=== PATIENT | female | born 1980 | race Caucasian/White ===

== ENCOUNTER 2017-03-11 15:27 | Inpatient (IN) ==
[2017-03-11] MEDS ORDERED: Vancomycin 1,500 MG in D5% in Water 250 ML IVPB ONE ×2 (16:25→16:31)
[2017-03-11 16:48] LABS: Basophils % 0.3 %; Eosinophils # 0.3 K/mcL (0.0-0.6); Eosinophils % 2.2 %; Hematocrit 35.8 % (35.3-44.9); Hemoglobin 11.9 g/dL (11.5-15.4); Immature Granulocytes % 0.3 % (0-4); Lymphocytes # 2.8 K/mcL (0.6-4.6); Lymphocytes % 23.6 %; Mean Corpuscular HGB Conc 33.2 g/dL (31.6-35.5); Mean Corpuscular Hemoglobin 28.3 pg (28.0-33.3); Mean Corpuscular Volume 85.2 fL (83.0-100.0); Mean Platelet Volume 10.8 fL (9.4-12.4); Monocytes # 0.8 K/mcL (0.0-1.3); Monocytes % 6.3 %; Neutrophils # 8.1 K/mcL (1.6-8.9); Platelet Count 311 K/mcL (140-400); Segmented Neutrophils % 67.3 %
--- NOTE | 2017-03-11 16:53 | Emergency Department Note ---
Disposition Clinical Impression: Cellulitis Qualifiers: Site of cellulitis: extremity Site of cellulitis of extremity: lower extremity Laterality: right Qualified Code(s): L03.115 - Cellulitis of right lower limb Disposition: Admitted As Inpatient Condition: Good Time of Disposition: 17:41 General Adult HPI - General Chief complaint: ED Skin/Abscess/Foreign Body Stated complaint: right leg wound check Time Seen by Provider: 03/11/17 15:46 Source: patient Limitations: no limitations Nursing Notes Reviewed: Yes Vital Signs Reviewed: Yes - History of Present Illness HPI Narrative: The patient is a 37 year-old female with no significant past medical history who presents with worsening cellulitis of the right leg. She states that this occurred 4-5 days ago while at work and was seen here in the ED yesterday and was prescribed antibiotics. She states that since yesterday, she continues to have chills and subjective fevers and admits to taking two antibiotics so far. She states that the redness has continue to spread outside of the mcgrath drawn on her leg yesterday and she is now having constant throbbing pain that starts in her right midcalf and radiating to the back of her right thigh that started last night. She states that bending her knee makes the pain worse and laying it straight and still makes the pain better. She also admits one new lesion that appeared on her knee and one on her RLQ of her abdomen. She denies any chest pain, SOB, difficulty breathing, abdominal pain, blood in her stool, blood in her urine, numbness and tingling, new weaknesses, or any focal neurological deficits. Pain Scale: 10 - Related Data Home Medications Medication Instructions Recorded Confirmed Naproxen Sodium [All Day Pain 220 mg PO Q12H PRN 03/11/17 03/11/17 Relief] Previous Rx's Medication Instructions Recorded Cephalexin [Keflex] 500 mg PO QID #40 capsule 03/10/17 HYDROcodone/Acet 5/325 mg [[place] 1 tab PO Q6H PRN #10 tab 03/10/17 5-325 mg] Sulfamethoxazole/Trimeth DS 1 each PO BID #20 tablet 03/10/17 [Bactrim DS] Allergies Allergy/AdvReac Type Severity Reaction Status Date / Time No Known Allergies Allergy Verified 03/11/17 15:45 Review of Systems: Constitutional: Admits subjective fever. Admits chills Vision: No blurred vision ENT: No rhinorrhea Respiratory: No cough Allergic: No allergies : No blood in urine GI: No blood in stool Hematologic: No bruising Dermatologic: No skin rash Musculoskeletal: Admits throbbing pain that starts behind her right midcalf and radiates up to behind her right thigh. Denies any numbness or tingling or weakness. Neuro: No numbness of the extremities All systems ED: reviewed and negative except as stated. Review of Systems: As Per HPI Past Medical History - Past Medical History Medical history: Reports: no medical history Psychiatric history: Reports: no psych history - Social History Smoking Status: Never smoker Smokeless Tobacco Status: No Alcohol use: Reports: none Drug use: Reports: none Physical Exam CONSTITUTIONAL: Alert and oriented X3, well-nourished, well appearing, in no apparent distress HEAD: Normocephalic; atraumatic. EYES: PERRL, no scleral icterus. NOSE: The nose is normal in appearance without rhinorrhea RESP: Normal chest excursion with respiration; breath sounds clear and equal bilaterally; no wheezes, rhonchi, or rales CARD: Regular rhythm, without murmurs, rub or gallop ABD: two vesicular lesion present on RLQ with no drainage. Non-distended; non- tender, soft,without rigidity, rebound or guarding SKIN: Normal for age and race; warm and dry; no apparent lesions EXTREMITIES: Several of erythematous vesicular lesions present behind the right knee and right calf. Erythema pass outside the mcgrath drawn. Right leg tender to palpation from thigh to midcalf. No crepitus noted. No drainage from the lesions. Pulses are 2 plus and equal times 4 extremities, no peripheral edema NEUROLOGICAL: Sensory and motor functions are intact. Strength is 5/5 for flexion and extension in all 4 extremities. - General Limitations: no limitations General appearance: alert, in no apparent distress Course Vital Signs Temperature 98.3 F 03/11/17 15:41 Pulse Rate 94 03/11/17 15:41 Respiratory Rate 18 03/11/17 15:41 Blood Pressure 134/90 03/11/17 15:41 O2 Sat by Pulse Oximetry 98 03/11/17 15:41 Temperature 98.2 F 03/11/17 18:28 Pulse Rate 79 03/11/17 18:28 Respiratory Rate 16 03/11/17 18:28 Blood Pressure 148/93 03/11/17 18:28 O2 Sat by Pulse Oximetry 100 03/11/17 18:28 Oxygen Delivery Oxygen Delivery Room Air Medical Decision Making - MDM Narrative Medical decision making narrative: Vitals are normal. Patient is afebrile and is not in any acute distress. Physical exam showed vesicular lesions behind the right knee and midcalf with no purulent discharge at this time. Appears erythematous outside of the mcgrath drawn. Will obtain labs and admit patient for IV antibiotics and observation for worsening of cellulitis. 174- Alf[facility] accepted the patient. Patient agrees to be admitted. - Lab Data Result diagrams: 03/11/17 16:37 03/11/17 16:37 Lab Results 03/11/17 03/11/17 Range/Units 16:37 16:37 WBC 12.0 H (4.3-11.1) K/mcL RBC 4.20 (3.82-4.97) M/mcL Hgb 11.9 (11.5-15.4) g/dL Hct 35.8 (35.3-44.9) % MCV 85.2 (83.0-100.0) fL MCH 28.3 (28.0-33.3) pg MCHC 33.2 (31.6-35.5) g/dL RDW 13.0 (11.5-14.5) % Plt Count 311 (140-400) K/mcL MPV 10.8 (9.4-12.4) fL Immature Gran % 0.3 (0-4) % Seg Neutrophils % 67.3 % Lymphocytes % 23.6 % Monocytes % 6.3 % Eosinophils % 2.2 % Basophils % 0.3 % Neutrophils # 8.1 (1.6-8.9) K/mcL Lymphocytes # 2.8 (0.6-4.6) K/mcL Monocytes # 0.8 (0.0-1.3) K/mcL Eosinophils # 0.3 (0.0-0.6) K/mcL Basophils # 0.0 (0.0-0.2) K/mcL Sodium 140 (136-145) mEq/L Potassium 3.9 (3.5-4.5) mEq/L Chloride 107 (98-109) mEq/L Carbon Dioxide 25 (19-29) mEq/L BUN 7 (7-20) mg/dL Creatinine 0.77 (0.57-1.11) mg/dL Est GFR ( Amer) > 60 (> 60) Est GFR (Non-Af Amer) > 60 (> 60) BUN/Creatinine Ratio 9 (6-26) Glucose 86 (70-99) mg/dL Calculated Osmolality 287 (280-300) Calcium 9.1 (8.6-10.8) mg/dL Attestation Statement - Attestation Attestation: I examined this patient and my medical decision-making was reviewed with the Resident Physician. I agree with the documented findings, disposition and treatment plan as described except to the extent set forth below. Right leg cellulitis and folliculitis. We will start therapy with vancomycin. Will admit for further evaluation of cellulitis in the setting of failed outpatient antibiotics.
[2017-03-11] MEDS ORDERED: *HR* OxyCODONE/APAP 5/325 TABLET PO ONE (16:54)
[2017-03-11 16:56] LABS: BUN/Creatinine Ratio 9 (6-26); Blood Urea Nitrogen 7 mg/dL (7-20); Calcium 9.1 mg/dL (8.6-10.8); Carbon Dioxide 25 mEq/L (19-29); Chloride 107 mEq/L (98-109); Glucose 86 mg/dL (70-99); Osmolality,Calculated 287 (280-300); Potassium 3.9 mEq/L (3.5-4.5); Sodium 140 mEq/L (136-145); eGFR For African Americans > 60 (> 60); eGFR For Non-African Americans > 60 (> 60)
[2017-03-11] MEDS: 0.9 % Sodium Chloride 1,000 ML IVC SCH ×2 (16:57→22:22)
[2017-03-11] MEDS ORDERED: Acetaminophen 325 MG TABLET PO PRN (22:41)
[2017-03-11] MEDS ORDERED: Naloxone 0.4 MG/ML INJ IVP PRN (22:41)
[2017-03-11] MEDS ORDERED: Ondansetron 4 MG/2 ML VIAL IVP PRN (22:41)
[2017-03-11] MEDS ORDERED: Vancomycin 1,500 MG in D5% in Water 250 ML IVPB SCH (23:00)
--- NOTE | 2017-03-11 23:08 | Internal Med History&Physical ---
Date of Encounter: 03/12/17 Time of Encounter: 22:00 Assessment and Plan (1) DVT prophylaxis Current visit: Yes Status: Acute Lovenox sc (2) Cellulitis Current visit: Yes Status: Acute Patient has a mild elevation of WBC. Physical exam shows cellulitis. - We will place patient on vancomycin and Rocephin iv. - Pain management. - Ultrasound right leg to rule out DVT Qualifiers: Site of cellulitis: extremity Site of cellulitis of extremity: lower extremity Laterality: right Qualified Code(s): L03.115 - Cellulitis of right lower limb Internal Medicine - H&P: HPI Chief complaint: Right leg pain and swelling Admitted From: Home Plans for Post Hospital Care: Home History of present illness: Ms. [place] is a 37 year old female with no significant medical history presented to ER for right leg swelling, redness, and pain. Patient said she had right leg redness and pain since 5 days ago. Treated as cellulitis as outpatient with Keflex and Bactrim. However, the symptoms not improved and even getting worse. Patient has chills, nausea, and vomited once today. The vomiting is stomach content, no blood. Patient said the swelling and pain makes her difficult pain to bent the knee. She was admitted for cellulitis with failed outpatient treatment. Past Med Surg Social Fam HX - Past Medical History Medical history: no medical history Psychiatric history: no psych history - Past Surgical History Surgical History: appendectomy, cholecystectomy - Social History Smoking Status: Never smoker Smokeless Tobacco Status: No Alcohol use: none Drug use: none - Family History Father Living Status: Still Living Hx Family Cardiac Disorders: Yes (hypertension) Hx Family Endocrine Disorder: Yes (diabetes) Internal Medicine - H&P: Meds Cephalexin [Keflex] 500 mg PO QID #40 capsule 03/10/17 [Rx] HYDROcodone/Acet 5/325 mg [[place] 5-325 mg] 1 tab PO Q6H PRN #10 tab 03/10/17 [Rx ] Sulfamethoxazole/Trimeth DS [Bactrim DS] 1 each PO BID #20 tablet 03/10/17 [Rx] Naproxen Sodium [All Day Pain Relief] 220 mg PO Q12H PRN 03/11/17 [History] 3 Allergy/AdvReac Type Severity Reaction Status Date / Time No Known Allergies Allergy Verified 03/11/17 15:45 All Systems PM: A 10-system review of systems was performed and is negative for pertinent findings except as documented above in the HPI. - Constitutional Vitals: Temp Pulse Resp BP Pulse Ox 98.2 F 79 16 148/93 100 03/11/17 18:28 03/11/17 18:28 03/11/17 18:28 03/11/17 18:28 03/11/17 18:28 General appearance: Present: A&O X 3, no acute distress, answers questions appropriately - Head Head exam: Present: atraumatic, normocephalic - Eye Eye exam: Present: PERRL, conjuntiva pink, sclera anicteric Pupils: Present: PERRL - Neck Neck exam general surgery: Present: supple, trachea midline. Absent: lymphadenopathy - Respiratory Respiratory exam: Present: CTAB. Absent: accessory muscle use, rales, rhonchi, wheezes - Cardiovascular Cardiovascular exam: Present: RRR, +S1, +S2. Absent: diastolic murmur, gallop, rubs, systolic murmur - GI/Abdominal GI/Abdominal exam: Present: normal bowel sounds, soft, no peritoneal signs. Absent: distended, tenderness - Extremities Exam Extremities exam: Present: warm, radial pulses palpable and symmetrical. Absent : calf tenderness, cyanotic, pedal edema Additional comments: Right leg is swelling. redness on the popliteal area. No knee joint swelling or tenderness. Multiple boils seen on right leg. - Neurological Exam Neurological exam: Present: CN II-XII intact, oriented X3, no focal deficits. Absent: pronater drift, facial droop, speech deficit - Skin Skin exam: Present: dry, intact Internal Med - H&P Results - Labs CBC & Chem 7: 03/11/17 16:37 03/11/17 16:37
[2017-03-11] MEDS: *HR* HYDROcodone/Acet 5/325 mg TABLET PO PRN (23:22)
[2017-03-12] MEDS: *HR* HYDROcodone/Acet 5/325 mg TABLET PO PRN ×5 (03:18→22:30)
[2017-03-12 03:41] LABS: Basophils % 0.3 %; Eosinophils # 0.4 K/mcL (0.0-0.6); Eosinophils % 3.5 %; Hemoglobin 10.7 g/dL (11.5-15.4); Immature Granulocytes % 0.3 % (0-4); Lymphocytes # 2.9 K/mcL (0.6-4.6); Lymphocytes % 27.6 %; Mean Corpuscular HGB Conc 32.4 g/dL (31.6-35.5); Mean Corpuscular Hemoglobin 27.6 pg (28.0-33.3); Mean Corpuscular Volume 85.3 fL (83.0-100.0); Mean Platelet Volume 11.1 fL (9.4-12.4); Monocytes # 0.8 K/mcL (0.0-1.3); Monocytes % 7.6 %; Neutrophils # 6.5 K/mcL (1.6-8.9); Platelet Count 283 K/mcL (140-400); Red Blood Count 3.87 M/mcL (3.82-4.97); Red Cell Distribution Width 13.1 % (11.5-14.5); Segmented Neutrophils % 60.7 %
[2017-03-12 04:10] LABS: BUN/Creatinine Ratio 11 (6-26); Blood Urea Nitrogen 7 mg/dL (7-20); Calcium 8.3 mg/dL (8.6-10.8); Carbon Dioxide 21 mEq/L (19-29); Chloride 111 mEq/L (98-109); Glucose 93 mg/dL (70-99); Osmolality,Calculated 284 (280-300); Potassium 3.6 mEq/L (3.5-4.5); Sodium 138 mEq/L (136-145); eGFR For African Americans > 60 (> 60); eGFR For Non-African Americans > 60 (> 60)
[2017-03-12] MEDS: *HR* Enoxaparin 40 MG/0.4 ML SYRINGE SQ SCH (05:13)
[2017-03-12] MEDS: Vancomycin 1,500 MG in D5% in Water 250 ML IVPB SCH ×2 (05:14→17:00)
[2017-03-12] MEDS: 0.9 % Sodium Chloride 1,000 ML IVC SCH ×2 (08:23→23:47)
--- NOTE | 2017-03-12 10:28 | Internal Med Progress Note ---
Date of Encounter: 03/12/17 Time of Encounter: 10:00 - Assessment and plan (1) Cellulitis of right leg Current Visit: Yes Status: Acute Assessment and plan: Concerning for possible abscess development in Rt leg near Rt leg posterior proximal 1/3 region Cont empirical abx Rocephin + Vancomycin for now Will f/u on blood cx Keep leg elevated No concerns of DVT Cont local wound care Cont symptomatic and supportive care will get CT of Rt leg - for further evaluation on abscess.. If CT shows, significant fluid collection / abscess will consult surgery for possible I & D (2) Folliculitis Current Visit: No Status: Acute Assessment and plan: multiple folliculitis over Rt leg and lower abdomen Cont empirical abx Rocephin + Vanco for now improving slowly (3) DVT prophylaxis Current Visit: Yes Status: Acute Assessment and plan: on Lovenox SQ - Subjective Interval history: Ms. [place] is a 37 year old female with no significant medical history presented to ER for right leg swelling, redness, and pain. Patient said she had right leg redness and pain since 5 days ago. Treated as cellulitis as outpatient with Keflex and Bactrim. However, the symptoms not improved and even getting worse. Patient has chills, nausea, and vomited once today. The vomiting is stomach content, no blood. Patient said the swelling and pain makes her difficult pain to bent the knee. She was admitted for cellulitis with failed outpatient treatment. Pt was started on empirical abx with Rocephin and Vancomycin. Her redness slightly better today. Still has multiple small abscess over posterior and lateral region of Rt lower leg. She also has a couple of furuncles on her lower abdomen. - Constitutional Vitals: Temp Pulse Resp BP Pulse Ox 98.4 F 62 14 115/80 92 03/12/17 07:03 03/12/17 07:03 03/12/17 07:03 03/12/17 07:03 03/12/17 10:14 General appearance: Present: A&O X 3, no acute distress, answers questions appropriately - Head Head exam: Present: atraumatic, normal inspection - Respiratory Respiratory exam: Present: CTAB. Absent: rales, respiratory distress, rhonchi, wheezes - Cardiovascular Cardiovascular exam: Present: RRR, +S1, +S2. Absent: diastolic murmur, gallop, rubs, systolic murmur - GI/Abdominal GI/Abdominal exam: Present: normal bowel sounds, soft. Absent: distended, rebound, rigid Additional comments: 2 small erythematous spots. with possible furuncle abscess - Extremities Exam Extremities exam: Present: tenderness. Absent: calf tenderness Additional comments: multiple small furuncles noticed over posterior and lateral region of Rt leg, at proximal 1/3. Moderate swelling and tenderness noticed. She does have blisters also ..No open wounds noticed. - Back Exam Back exam: Absent: CVA tenderness (L), CVA tenderness (R) - Psychiatric Psychiatric exam: Present: normal affect, normal mood Internal Medicine: Result - Labs CBC & Chem 7: 03/12/17 03:13 03/12/17 03:13 Labs: Short CBC 03/12/17 Range/Units 03:13 WBC 10.7 (4.3-11.1) K/mcL Hgb 10.7 L (11.5-15.4) g/dL Hct 33.0 L (35.3-44.9) % Plt Count 283 (140-400) K/mcL Neutrophils # 6.5 (1.6-8.9) K/mcL BMP 03/12/17 03:13 Sodium 138 Potassium 3.6 Chloride 111 H Carbon Dioxide 21 BUN 7 Creatinine 0.62 Glucose 93 Calcium 8.3 L Consult Discharge Plan - Plan Referrals: Misti Parsons, MANUAL WRITER [Primary Care Provider] -
[2017-03-12] MEDS ORDERED: *HR* Morphine 2 MG/ML SYRINGE IVP PRN (10:36)
[2017-03-13 05:12] LABS: Basophils % 0.4 %; Eosinophils # 0.4 K/mcL (0.0-0.6); Eosinophils % 5.4 %; Hemoglobin 10.7 g/dL (11.5-15.4); Immature Granulocytes % 0.1 % (0-4); Lymphocytes # 2.6 K/mcL (0.6-4.6); Mean Corpuscular HGB Conc 32.4 g/dL (31.6-35.5); Mean Corpuscular Hemoglobin 27.9 pg (28.0-33.3); Mean Corpuscular Volume 85.9 fL (83.0-100.0); Monocytes # 0.5 K/mcL (0.0-1.3); Monocytes % 7.5 %; Neutrophils # 3.6 K/mcL (1.6-8.9); Platelet Count 291 K/mcL (140-400); Red Blood Count 3.84 M/mcL (3.82-4.97); Red Cell Distribution Width 12.9 % (11.5-14.5); Segmented Neutrophils % 50.6 %
[2017-03-13] MEDS: Vancomycin 1,750 MG in D5% in Water 500 ML IVPB SCH ×2 (06:13→17:15)
[2017-03-13] MEDS: *HR* Enoxaparin 40 MG/0.4 ML SYRINGE SQ SCH (06:14)
[2017-03-13] MEDS: *HR* HYDROcodone/Acet 5/325 mg TABLET PO PRN ×4 (06:25→21:30)
--- NOTE | 2017-03-13 15:34 | Internal Med Progress Note ---
Date of Encounter: 03/13/17 Time of Encounter: 13:45 - Assessment and plan (1) Cellulitis of right leg Current Visit: Yes Status: Acute Assessment and plan: Cont empirical abx Rocephin + Vancomycin for now blood cx so far no growth sent for wound cx reviewed CT of leg - no abscess noticed Keep leg elevated No concerns of DVT Cont local wound care Cont symptomatic and supportive care (2) Folliculitis Current Visit: No Status: Acute Assessment and plan: multiple folliculitis over Rt leg and lower abdomen Cont empirical abx Rocephin + Vanco for now improving slowly (3) DVT prophylaxis Current Visit: Yes Status: Acute Assessment and plan: on Lovenox SQ - Subjective Interval history: Ms. [place] is a 37 year old female with no significant medical history presented to ER for right leg swelling, redness, and pain. Patient said she had right leg redness and pain since 5 days ago. Treated as cellulitis as outpatient with Keflex and Bactrim. However, the symptoms not improved and even getting worse. Patient has chills, nausea, and vomited once today. The vomiting is stomach content, no blood. Patient said the swelling and pain makes her difficult pain to bent the knee. She was admitted for cellulitis with failed outpatient treatment. Pt was started on empirical abx with Rocephin and Vancomycin. Her redness slightly better today. Still has multiple small bulla and furuncles over posterior and lateral region of Rt lower leg. Furuncles on her lower abdomen are improved today. No fever. Overall feels better. - Constitutional Vitals: Temp Pulse Resp BP Pulse Ox 98.1 F 82 14 134/84 96 03/13/17 12:03 03/13/17 12:03 03/13/17 12:03 03/13/17 12:03 03/13/17 12:03 General appearance: Present: A&O X 3, no acute distress, answers questions appropriately - Head Head exam: Present: atraumatic, normal inspection - Respiratory Respiratory exam: Present: wheezes. Absent: respiratory distress, rhonchi - Cardiovascular Cardiovascular exam: Present: RRR, +S1, +S2 - GI/Abdominal GI/Abdominal exam: Present: soft. Absent: rebound, rigid, tenderness - Extremities Exam Extremities exam: Absent: calf tenderness, pedal edema Additional comments: multiple small furuncles noticed over posterior and lateral region of Rt leg, at proximal 1/3. Moderate swelling and tenderness noticed. She does have blisters also. Over all improved erythema noticed and few healing furuncles noticed - Back Exam Back exam: Absent: CVA tenderness (L), CVA tenderness (R) - Neurological Exam Neurological exam: Present: alert, oriented X3 - Psychiatric Psychiatric exam: Present: normal affect, normal mood Internal Medicine: Result - Labs CBC & Chem 7: 03/13/17 04:55 03/12/17 03:13 Labs: Short CBC 03/13/17 Range/Units 04:55 WBC 7.1 (4.3-11.1) K/mcL Hgb 10.7 L (11.5-15.4) g/dL Hct 33.0 L (35.3-44.9) % Plt Count 291 (140-400) K/mcL Neutrophils # 3.6 (1.6-8.9) K/mcL Consult Discharge Plan - Plan Referrals: Misti Parsons, TRANSPORT TANK TECHNICIAN [Primary Care Provider] -
[2017-03-14 04:17] LABS: Basophils % 0.5 %; Eosinophils # 0.4 K/mcL (0.0-0.6); Eosinophils % 5.5 %; Immature Granulocytes % 0.1 % (0-4); Lymphocytes # 3.1 K/mcL (0.6-4.6); Lymphocytes % 41.8 %; Mean Corpuscular HGB Conc 33.3 g/dL (31.6-35.5); Mean Corpuscular Hemoglobin 28.4 pg (28.0-33.3); Mean Corpuscular Volume 85.3 fL (83.0-100.0); Mean Platelet Volume 10.8 fL (9.4-12.4); Monocytes # 0.5 K/mcL (0.0-1.3); Monocytes % 6.2 %; Neutrophils # 3.4 K/mcL (1.6-8.9); Platelet Count 316 K/mcL (140-400); Red Blood Count 3.87 M/mcL (3.82-4.97); Red Cell Distribution Width 12.8 % (11.5-14.5); Segmented Neutrophils % 45.9 %
[2017-03-14] MEDS: *HR* Enoxaparin 40 MG/0.4 ML SYRINGE SQ SCH (05:24)
[2017-03-14] MEDS: Vancomycin 1,750 MG in D5% in Water 500 ML IVPB SCH (05:24)
[2017-03-14] MEDS: *HR* HYDROcodone/Acet 5/325 mg TABLET PO PRN (05:31)
[2017-03-14 07:06] VITALS: BP 147/89
--- NOTE | 2017-03-14 10:56 | Discharge Summary ---
Date of Encounter: 03/14/17 Time of Encounter: 10:56 - Discharge Diagnosis (1) Cellulitis of right leg Priority: Primary Status: Acute (2) Folliculitis Priority: Primary Status: Acute (3) DVT prophylaxis Priority: Secondary Status: Acute - Discharge Medications Prescriptions: DiphenhydraMINE [Benadryl] 25 mg PO Q6HR PRN #15 capsule PRN Reason: itching Guille/Poly/Mark OINT [Triple Antibiotic Ointment] 1 appl TP BID 10 Days tube Saccharomyces Boulardii [Florastor] 250 mg PO BID #20 capsule Sulfamethoxazole/Trimeth DS [Bactrim Ds] 1 each PO BID #20 tablet Home Medications: HYDROcodone/Acet 5/325 mg [[place] 5-325 mg] 1 tab PO Q6H PRN #10 tab 03/10/17 [Rx ] Naproxen Sodium [All Day Pain Relief] 220 mg PO Q12H PRN 03/11/17 [History] DiphenhydraMINE [Benadryl] 25 mg PO Q6HR PRN #15 capsule 03/14/17 [Rx] Guille/Poly/Mark OINT [Triple Antibiotic Ointment] 1 appl TP BID 10 Days tube 03/14 [Rx] Saccharomyces Boulardii [Florastor] 250 mg PO BID #20 capsule 03/14/17 [Rx] Sulfamethoxazole/Trimeth DS [Bactrim Ds] 1 each PO BID #20 tablet 03/14/17 [Rx] Allergies/Adverse Reactions: 3 Allergy/AdvReac Type Severity Reaction Status Date / Time No Known Allergies Allergy Verified 03/11/17 15:45 Date of admission: 03/12/17 11:29 Primary care physician: Misti Parsons CNP - Patient Status Disposition: Home, Self-Care Condition: Good Overall status at discharge: patient is back to baseline - Discharge Instructions Follow Up With: Misti Parsons CNP [Primary Care Provider] - Additional Instructions: Need to f/u with PCP in one week need to f/u at wound care clinic in 5-7 days - Diet and Activity Activity: increase activity as tolerated Diet: advance to your usual diet Hospital course: Ms. [place] is a 37 year old female with no significant medical history presented to ER for right leg swelling, redness, and pain. Patient said she had right leg redness and pain since 5 days ago. Treated as cellulitis as outpatient with Keflex and Bactrim. However, the symptoms not improved and even getting worse. Patient has chills, nausea, and vomited once today. The vomiting is stomach content, no blood. Patient said the swelling and pain makes her difficult pain to bent the knee. She was admitted for cellulitis with failed outpatient treatment. Pt was started on empirical abx with Rocephin and Vancomycin. We did CT of leg, which showed superficial soft tissue edema with areas of skin blistering on the postero lateral aspect of the Rt knee and proximal leg..but no abscess noticed. Her cellulites / erythema improved. Furucnles over lower abdomen resolved. Wound cx did not grown anything yet. Will d/c her home today with PO bactrim for 10 days. Also recommend to f/u with wound care clinic and PCP in one week. Educated the pt about hygiene. - Time Spent with Patient Total time spent providing and/or coordinating discharge services: - Constitutional Vitals: Temp Pulse Resp BP Pulse Ox 98 F 68 16 147/89 98 03/14/17 06:52 03/14/17 06:52 03/14/17 06:52 03/14/17 06:52 03/14/17 06:52 General appearance: Present: A&O X 3, no acute distress, answers questions appropriately - Head Head exam: Present: atraumatic, normal inspection - Respiratory Respiratory exam: Present: CTAB. Absent: accessory muscle use, rales, rhonchi, wheezes - Cardiovascular Cardiovascular exam: Present: RRR, +S1, +S2. Absent: diastolic murmur, gallop, rubs, systolic murmur - GI/Abdominal GI/Abdominal exam: Present: soft. Absent: rebound, rigid, tenderness - Extremities Exam Extremities exam: Present: tenderness. Absent: calf tenderness, pedal edema Additional comments: multiple improving small furuncles noticed over posterior and lateral region of Rt leg, at proximal 1/3. Improved erythema, swelling and tenderness noticed. her blisters also improving. Over all improved erythema noticed and few healing furuncles noticed
[2017-03-14] MEDS ORDERED: Aminoglycoside Consult 1 EACH MC ONE (12:39)
== END 2017-03-14 12:40 | disposition home or self-care (01) | DRG 603 ==
LOC: EMEROO 15:27 → 3NENU 15:27 → SUATTDRO 17:46 → 3NENU 18:19
PROVIDERS: ADMIT Nurse Practitioner; ATTEND Family Medicine

== ENCOUNTER 2017-04-14 12:41 | Inpatient (IN) ==
[2017-04-14] MEDS ORDERED: Ondansetron 4 MG/2 ML VIAL IVP ONE (13:48)
[2017-04-14] MEDS ORDERED: 0.9 % Sodium Chloride 1,000 ML IVC ONE (13:48)
[2017-04-14] MEDS ORDERED: Sulfamethoxazole/Trimeth DS 1 EACH TABLET PO ONE (13:49)
[2017-04-14 14:20] LABS: Hematocrit 36.1 % (35.3-44.9); Lymphocytes # 0.5 K/mcL (0.6-4.6); Mean Corpuscular HGB Conc 33.2 g/dL (31.6-35.5); Mean Corpuscular Volume 84.3 fL (83.0-100.0); Mean Platelet Volume 10.9 fL (9.4-12.4); Platelet Count 265 K/mcL (140-400); Red Blood Count 4.28 M/mcL (3.82-4.97); Red Cell Distribution Width 13.7 % (11.5-14.5)
[2017-04-14 14:25] LABS: INR 1.4; Prothrombin Time 15.5 Seconds (9.4-12.1)
[2017-04-14 14:27] LABS: Activated Partial Thrombo Time 29.3 Seconds (26.0-36.0)
--- NOTE | 2017-04-14 14:34 | Emergency Department Note ---
Disposition Clinical Impression: Sepsis Qualifiers: Sepsis type: sepsis due to unspecified organism Qualified Code(s): A41.9 - Sepsis, unspecified organism Cellulitis Qualifiers: Site of cellulitis: extremity Site of cellulitis of extremity: lower extremity Laterality: right Qualified Code(s): L03.115 - Cellulitis of right lower limb Disposition: Admitted As Inpatient Condition: Fair Time of Disposition: 17:16 Fever HPI - General Chief Complaint: ED Fever Stated Complaint: "hurt all over, 102 fever" Time Seen by Provider: 04/14/17 12:53 Source: patient Mode of arrival: ambulatory Limitations: no limitations Nursing Notes Reviewed: Yes Vital Signs Reviewed: Yes - History of Present Illness HPI Narrative: 37-year-old female presented to the ED complaining of pain all over. She was recently seen by her primary care physician where they did a biopsy of one of her blister she has on her right leg that came back showing possible strep/ staph most likely impetigo. She was called in a prescription but has yet to get up if she is not feeling well. She is states that she is nauseous but has not vomited. She does have a fever of 102.9. She has not taken Tylenol. Her last Tylenol was approximately 6:00 this morning. She states that her whole body is very cold and she has the chills. She has not having any shortness of breath, pain with urination, chest pain. She denies any headaches. Or generalized weakness. Says she is not feeling very well. Patient says the blisters are becoming more painful there are not more red. She otherwise is not complaining of any symptoms including headache, blurry vision, chest pain, shortness of breath, abdominal pain, pain with urination, change in bowel movement, particularly around the arms or legs or any generalized weakness. Pt Subjective Complaint: fever - Related Data Home Medications Medication Instructions Recorded Confirmed No Known Home Drugs 04/14/17 04/14/17 Allergies Allergy/AdvReac Type Severity Reaction Status Date / Time No Known Allergies Allergy Verified 03/11/17 15:45 Review of Systems: 10 point review of systems done and negative unless otherwise stated in history of present illness. All systems ED: reviewed and negative except as stated. Review of Systems: As Per HPI Fever PMH - Past Medical History Medical history: Reports: no medical history Surgical history: Reports: appendectomy, cholecystectomy Psychiatric history: Reports: no psych history - Social History Smoking Status: Never smoker Alcohol use: Reports: none Drug use: Reports: none Physical Exam - General Limitations: no limitations General appearance: alert, in no apparent distress - Head Head exam: atraumatic, normocephalic, normal inspection - Eye Eye exam: Present: normal appearance, PERRL, EOMI - ENT ENT exam: normal exam, normal oropharynx, mucous membranes moist - Neck Neck exam: Present: normal inspection, full ROM, trachea midline - Chest Chest inspection: Present: normal inspection, symmetric chest wall rise - Respiratory Respiratory exam: Present: normal lung sounds bilaterally - Cardiovascular Cardiovascular exam: Present: regular rate, normal rhythm, normal heart sounds - Abdominal Exam Abdominal exam: Present: soft, Non-Tender. Absent: tenderness, distention, guarding, rebound, rigidity - Extremities Exam Extremities exam: Present: normal inspection, full ROM. Absent: tenderness, pedal edema - Expanded Lower Extremity Exam Neurovascular/Tendon exam: Absent: motor deficit, sensory deficit, tendon deficit Gait: observed and normal - Back Exam Back exam: Present: normal inspection, full ROM. Absent: tenderness, CVA tenderness (R), CVA tenderness (L) - Neurological Exam Neurological exam: Present: alert, oriented X3 - Skin Skin exam: Present: warm, dry, intact, normal color, other (Patient does have 3 small pustules that are mildly erythematous on the outside. They are painful to touch. There is no fluctuance or noticeable drainage. These are located on the back of her calf, right hip and right groin.) Course Course Narrative: 37-year-old female presenting here tachycardic, with a fever having these known cellulitic lesions. She has not been on any antibiotics we will do a sepsis workup including CBC, CMP, lactate, blood cultures give her 1 L of fluids we will do chest x-ray, urinalysis we will reevaluate her after always comes back and make a disposition. Vital Signs Temperature 99.5 F 04/14/17 12:47 Pulse Rate 118 04/14/17 12:47 Respiratory Rate 18 04/14/17 12:47 Blood Pressure 137/78 04/14/17 12:47 O2 Sat by Pulse Oximetry 97 04/14/17 12:47 Temperature 103.8 F H 04/14/17 20:57 Pulse Rate 112 04/14/17 20:57 Respiratory Rate 18 04/14/17 20:57 Blood Pressure 99/66 04/14/17 20:57 O2 Sat by Pulse Oximetry 94 04/14/17 20:57 Oxygen Delivery Oxygen Delivery Room Air Fever - MDM Narrative Medical decision making narrative: 37-year-old female presents to the ED complaining of fever. Patient was recently diagnosed with impetigo with lesions along her right leg these are very small pustules. We did get a CT with contrast of the lower leg just showed a cellulitis. She did have a leukocytosis with a left shift with 20,000 white blood cells. She was also tachycardic. She also had a fever. Due to this we felt that she needed admission. We started Zosyn and vancomycin for the patient. We did a chest x-ray and urinalysis were talking back normal. The most likely source of the infection is from a cellulitis. We also did influenza and strep which came back negative. We did blood cultures and gave the patient 2 L of normal saline. Patient was given Zofran, Phenergan and Dilaudid and morphine for pain control. The Dilaudid and Phenergan seemed to work the best. Patient is admitted to the hospitalist service by Dr. Cote who agreed to accept the patient. Patient is admitted in stable condition at this time. Chest X-Ray 04/14/17 13:58 IMPRESSION: No acute process. D/ / Mao Ochoa MD / Mao Ochoa MD Interpreting Provider: Mao Ochoa MD Lower Extremity CT 04/14/17 15:31 IMPRESSION: Findings most compatible with cellulitis posteriorly of the right thigh. No abscess. D/ / Bartolo Bahena MD / Bartolo Bahena MD Interpreting Provider: Bartolo Bahena MD - Medical Records Medical records reviewed: Yes I reviewed the patient's medical records. - Lab Data Lab results reviewed: Yes I reviewed the patient's lab results. Result diagrams: 04/14/17 14:10 04/14/17 14:10 Lab Results 04/14/17 04/14/17 04/14/17 Range/Units 14:10 14:10 14:10 WBC 23.1 H (4.3-11.1) K/mcL RBC 4.28 (3.82-4.97) M/mcL Hgb 12.0 (11.5-15.4) g/dL Hct 36.1 (35.3-44.9) % MCV 84.3 (83.0-100.0) fL MCH 28.0 (28.0-33.3) pg MCHC 33.2 (31.6-35.5) g/dL RDW 13.7 (11.5-14.5) % Plt Count 265 (140-400) K/mcL MPV 10.9 (9.4-12.4) fL Seg Neutrophils % 94.0 % Lymphocytes % 2.0 % Monocytes % 4.0 % Neutrophils # 21.7 H (1.6-8.9) K/mcL Lymphocytes # 0.5 L (0.6-4.6) K/mcL Monocytes # 0.9 (0.0-1.3) K/mcL Toxic Granulation Present A (Not Present) Platelet Estimate Normal (Normal) PT 15.5 H (9.4-12.1) Seconds INR 1.4 APTT 29.3 (26.0-36.0) Seconds Sodium 137 (136-145) mEq/L Potassium 3.7 (3.5-4.5) mEq/L Chloride 104 (98-109) mEq/L Carbon Dioxide 23 (19-29) mEq/L BUN 7 (7-20) mg/dL Creatinine 0.73 (0.57-1.11) mg/dL Est GFR ( Amer) > 60 (> 60) Est GFR (Non-Af Amer) > 60 (> 60) BUN/Creatinine Ratio 10 (6-26) Glucose 95 (70-99) mg/dL Calculated Osmolality 282 (280-300) Lactic Acid (0.5-2.2) mmol/L Calcium 8.5 L (8.6-10.8) mg/dL Phosphorus 2.5 (2.3-4.7) mg/dL Magnesium 1.5 L (1.6-2.6) mg/dL Total Bilirubin 1.1 (0.2-1.2) mg/dL Direct Bilirubin 0.4 (0.0-0.5) mg/dL Indirect Bilirubin 0.7 (0.0-1.2) mg/dL AST 23 (5-34) Units/L ALT 21 (0-55) Units/L Alkaline Phosphatase 62 (38-126) Units/L Troponin I (0-0.03) ng/mL Serum Total Protein 7.2 (6.0-8.3) g/dL Albumin 3.1 L (3.5-5.0) g/dL Globulin 4.1 H (2.4-3.5) g/dL Albumin/Globulin Ratio 0.8 L (1.1-2.2) 04/14/17 04/14/17 Range/Units 14:10 14:10 WBC (4.3-11.1) K/mcL RBC (3.82-4.97) M/mcL Hgb (11.5-15.4) g/dL Hct (35.3-44.9) % MCV (83.0-100.0) fL MCH (28.0-33.3) pg MCHC (31.6-35.5) g/dL RDW (11.5-14.5) % Plt Count (140-400) K/mcL MPV (9.4-12.4) fL Seg Neutrophils % % Lymphocytes % % Monocytes % % Neutrophils # (1.6-8.9) K/mcL Lymphocytes # (0.6-4.6) K/mcL Monocytes # (0.0-1.3) K/mcL Toxic Granulation (Not Present) Platelet Estimate (Normal) PT (9.4-12.1) Seconds INR APTT (26.0-36.0) Seconds Sodium (136-145) mEq/L Potassium (3.5-4.5) mEq/L Chloride (98-109) mEq/L Carbon Dioxide (19-29) mEq/L BUN (7-20) mg/dL Creatinine (0.57-1.11) mg/dL Est GFR ( Amer) (> 60) Est GFR (Non-Af Amer) (> 60) BUN/Creatinine Ratio (6-26) Glucose (70-99) mg/dL Calculated Osmolality (280-300) Lactic Acid 1.8 (0.5-2.2) mmol/L Calcium (8.6-10.8) mg/dL Phosphorus (2.3-4.7) mg/dL Magnesium (1.6-2.6) mg/dL Total Bilirubin (0.2-1.2) mg/dL Direct Bilirubin (0.0-0.5) mg/dL Indirect Bilirubin (0.0-1.2) mg/dL AST (5-34) Units/L ALT (0-55) Units/L Alkaline Phosphatase (38-126) Units/L Troponin I 0.00 (0-0.03) ng/mL Serum Total Protein (6.0-8.3) g/dL Albumin (3.5-5.0) g/dL Globulin (2.4-3.5) g/dL Albumin/Globulin Ratio (1.1-2.2) - Radiology Data Radiology results reviewed: Yes I reviewed the patient's radiology results. - EKG Data EKG attestation: Yes I reviewed and interpreted this EKG. EKG results narrative: EKG done at [facility] review by myself and the attending shows sinus tachycardia at a rate of 104, AL interval 128, QRS 103, QTC 374 with a leftward axis. There is no acute ST changes, no acute T-wave abnormalities, no signs of any heart blocks, heart strain, hypertrophy, no signs of any WPW/Brugada syndrome. This EKG is unchanged other than the tachycardia when compared with old EKG done 01/28/17. Attestation Statement - Attestation Attestation: I examined this patient and my medical decision-making was reviewed with the Resident Physician. I agree with the documented findings, disposition and treatment plan as described except to the extent set forth below. Patient to the ED complaining of leg pain. Patient has been having problems with recurring boils. She currently has on the back of her right leg. She has had to be admitted to the hospital for this in the past. On examination she is crying. She is in extreme pain. She has a small 1 cm pustule in the posterior right thigh. Plan. Patient has a high white count of 23,000. She is tachycardic. Low-grade temp at 99. We will check a CT of the leg to rule out necrotizing fasciitis with her pain out of proportion to exam. 35 minutes of critical care exclusive of separately billable procedures.
[2017-04-14 14:35] LABS: Alanine Aminotransferase 21 Units/L (0-55); Albumin 3.1 g/dL (3.5-5.0); Albumin/Globulin Ratio 0.8 (1.1-2.2); Alkaline Phosphatase 62 Units/L (38-126); Aspartate Amino Transferase 23 Units/L (5-34); BUN/Creatinine Ratio 10 (6-26); Bilirubin,Direct 0.4 mg/dL (0.0-0.5); Bilirubin,Indirect 0.7 mg/dL (0.0-1.2); Bilirubin,Total 1.1 mg/dL (0.2-1.2); Blood Urea Nitrogen 7 mg/dL (7-20); Calcium 8.5 mg/dL (8.6-10.8); Carbon Dioxide 23 mEq/L (19-29); Chloride 104 mEq/L (98-109); Globulin 4.1 g/dL (2.4-3.5); Glucose 95 mg/dL (70-99); Magnesium 1.5 mg/dL (1.6-2.6); Osmolality,Calculated 282 (280-300); Phosphorous 2.5 mg/dL (2.3-4.7); Potassium 3.7 mEq/L (3.5-4.5); Sodium 137 mEq/L (136-145); Total Protein 7.2 g/dL (6.0-8.3); eGFR For African Americans > 60 (> 60); eGFR For Non-African Americans > 60 (> 60)
[2017-04-14] MEDS ORDERED: *HR* Morphine 2 MG/ML SYRINGE IVP ONE (15:09)
[2017-04-14 15:14] LABS: Monocytes # 0.9 K/mcL (0.0-1.3); Neutrophils # 21.7 K/mcL (1.6-8.9); Platelet Estimate Normal (Normal); Toxic Granulation Present (Not Present)
[2017-04-14] MEDS ORDERED: Piperacillin/Tazobactam 3.375 GM in D5% in Water 50 ML IVPB ONE (16:57)
[2017-04-14] MEDS ORDERED: Vancomycin 1,500 MG in D5% in Water 250 ML IVPB ONE (16:57)
--- NOTE | 2017-04-14 20:28 | Internal Med History&Physical ---
<SantosДмитрий - Last Filed: 04/14/17 23:31> Date of Encounter: 04/14/17 Time of Encounter: 20:00 Assessment and Plan (1) Cellulitis of right leg Current visit: No Status: Acute No signs of active bleeding, pus, or drainage. CT of R leg consistent with cellulitis. No signs of abscess. - Continue Vanc and zosyn. - Pain control. (2) Sepsis Current visit: Yes Status: Acute Patient was tachycardic at 115 with an elevated WBC of 23.1, which meets SIRS criteria. Source of infection is suspected to be cellulitis of R leg. She meets criteria of Sepsis. Currently afebrile. CXR normal. - Blood cultures pending. - UA pending. - Influenza dn strep test negative. - Continue vanc q8hr. - Continue zosyn q6hr. - IV fluids. l Qualifiers: Sepsis type: sepsis due to unspecified organism Qualified Code(s): A41.9 - Sepsis, unspecified organism (3) DVT prophylaxis Current visit: No Status: Acute - Heparin SQ 5000 U Q12hr. Internal Medicine - H&P: HPI Admitted From: Emergency Dept History of present illness: Ms. France is a 37 year old female with PMH of recurrent skin cellulitis that presents for fever and skin infection of R leg. Patient says that she noticed a blister on the back of her R thigh a few days ago. She describes it as painful and rates it as a 9/10 in pain scale. She denies any active bleeding, pus, or drainage from the site. She says that she had a fever earlier today of about 102.9 and has been vomiting al day. She denies any hematemesis or nausea. She describes having generalized aches throughout her body. Tyenol did not seem to help with her pain or fever. She adds that she has soreness across her chest from frequent vomiting. She denies any dysuria or hematuria. Patient mentions that she had also developed another skin infection on her L scapular region, for which she saw a customer service security officer and had biopsied, which showed staph infection consistent with impetigo. Patient was also here at [facility] one month ago for cellulits of her R leg in the same region. Wound cultures did not show any growth. She was discharged with Bactrim, but when she finished her antibiotic course, she noticed the infection start to come back. When she reported to the ED today, she was noticed to be tachycardic with an elevated WBC count. She was given zosyn and vancomycin along with IV fluids. Past Med Surg Social Fam HX - Past Medical History Medical history: no medical history Psychiatric history: no psych history - Past Surgical History Surgical History: appendectomy, cholecystectomy - Social History Smoking Status: Never smoker Smokeless Tobacco Status: No Alcohol use: none Drug use: none - Family History Father Living Status: Still Living Hx Family Cardiac Disorders: Yes (hypertension) Hx Family Endocrine Disorder: Yes (diabetes) Internal Medicine - H&P: Meds No Known Home Drugs 04/14/17 [History] 3 Allergy/AdvReac Type Severity Reaction Status Date / Time No Known Allergies Allergy Verified 03/11/17 15:45 All Systems PM: A 10-system review of systems was performed and is negative for pertinent findings except as documented above in the HPI. - Constitutional Constitutional: as per HPI, fever(s) - Cardiovascular Cardiovascular ROS IM: as per HPI, no dyspnea, no lightheadedness, no palpitations - Respiratory Respiratory: pain on inspiration, no cough, no dyspnea, no wheezing - Gastrointestinal Gastrointestinal: vomiting, no abdominal pain, no constipation, no diarrhea, no hematochezia, no nausea - Genitourinary Genitourinary: no dysuria, no flank pain, no hematuria - Musculoskeletal Musculoskeletal ROS IM: as per HPI, myalgias - Constitutional Vitals: Temp Pulse Resp BP Pulse Ox 103.0 F H 117 16 107/68 95 04/14/17 19:43 04/14/17 19:43 04/14/17 19:43 04/14/17 19:43 04/14/17 19:43 General appearance: Present: A&O X 3, obese, answers questions appropriately - Respiratory Respiratory exam: Present: CTAB. Absent: rhonchi, wheezes, tachypnea - Cardiovascular Cardiovascular exam: Present: RRR, +S1, +S2 - GI/Abdominal GI/Abdominal exam: Present: normal bowel sounds, soft. Absent: guarding, rebound, tenderness - Extremities Exam Extremities exam: Present: full ROM, radial pulses palpable and symmetrical. Absent: pedal edema - Back Exam Back exam: Absent: CVA tenderness (L), CVA tenderness (R) - Skin Additional comments: 1 cm vesicular lesion with erythema on R posterior thigh. Pain with touch. No signs of active bleeding, pus, or drainage. 2 cm area of erythema on R anterior thigh. No signs of active bleeding, pus or drainage. 2-3 cm lesion iwth minial erythema over L scapular region that seems to have been incised. N signs of active bleeding, pus, or drainage. Internal Med - H&P Results - Labs CBC & Chem 7: 04/14/17 21:11 04/14/17 21:11 <Edgar Padgett - Last Filed: 04/15/17 01:34> Date of Encounter: 04/14/17 Internal Medicine - H&P: HPI History of present illness: Ms. France is a 37 year old female All Systems PM: A 10-system review of systems was performed and is negative for pertinent findings except as documented above in the HPI. - Constitutional Vitals: Temp Pulse Resp BP Pulse Ox 102.8 F H 117 18 94/60 95 04/14/17 23:01 04/14/17 23:01 04/14/17 23:01 04/14/17 23:01 04/14/17 23:01 Internal Med - H&P Results - Labs CBC & Chem 7: 04/14/17 21:11 04/14/17 21:11 Labs: Short CBC 04/14/17 Range/Units 21:11 WBC 21.1 H (4.3-11.1) K/mcL Hgb 11.4 L (11.5-15.4) g/dL Hct 34.3 L (35.3-44.9) % Plt Count 256 (140-400) K/mcL Neutrophils # 18.8 H (1.6-8.9) K/mcL BMP 04/14/17 21:11 Sodium 134 L Potassium 3.5 Chloride 104 Carbon Dioxide 22 BUN 9 Creatinine 0.87 Glucose 104 H Calcium 8.2 L Urine 04/14/17 Range/Units 21:50 Urine Color Dark Yellow (Yellow) Urine Clarity Clear (Clear) Urine pH 6.0 (5.0-8.0) pH Units Ur Specific [place] > 1.030 H (1.010-1.025) Urine Protein 30 H (Neg-Trace) mg/dL Urine Glucose (UA) Normal (Normal) mg/dL - Attending Attestation I examined this patient and my medical decision-making was reviewed with the Resident Physician. I agree with the documented findings, disposition and treatment plan as described except to the extent set forth below. I have seen and examined the patient. 37-year-old female with no significant past medical history. She presents to the ED with complaints of right lower leg pain and redness. She describes her pain as burning in sensation. Patient states that symptoms initially started as a blister on the back of her thigh which developed some drainage. Patient continues to have fever. She is also tachycardic. She will need IV antibiotics and IV fluids. Cultures are pending. She is being admitted for sepsis secondary to cellulitis to right lower leg. Patient has been explained about her condition and plan of care detail. She understood and agreed. No unanswered questions. CODE STATUS full code.
[2017-04-14] MEDS ORDERED: Naloxone 0.4 MG/ML INJ IVP PRN (20:47)
[2017-04-14] MEDS ORDERED: *HR* HYDROmorphone (PF) 1 MG/ML SYRINGE IVP PRN (20:47)
[2017-04-14] MEDS ORDERED: *HR* Promethazine 25 MG/ML VIAL IVP PRN (20:47)
[2017-04-14 21:19] LABS: Basophils % 0.2 %; Eosinophils # 0.2 K/mcL (0.0-0.6); Eosinophils % 0.8 %; Hematocrit 34.3 % (35.3-44.9); Hemoglobin 11.4 g/dL (11.5-15.4); Immature Granulocytes % 0.8 % (0-4); Lymphocytes # 0.9 K/mcL (0.6-4.6); Mean Corpuscular HGB Conc 33.2 g/dL (31.6-35.5); Mean Corpuscular Hemoglobin 28.1 pg (28.0-33.3); Mean Corpuscular Volume 84.5 fL (83.0-100.0); Mean Platelet Volume 10.8 fL (9.4-12.4); Monocytes # 1.1 K/mcL (0.0-1.3); Monocytes % 5.2 %; Neutrophils # 18.8 K/mcL (1.6-8.9); Platelet Count 256 K/mcL (140-400); Red Blood Count 4.06 M/mcL (3.82-4.97); Red Cell Distribution Width 13.9 % (11.5-14.5)
[2017-04-14 21:31] LABS: BUN/Creatinine Ratio 10 (6-26); Blood Urea Nitrogen 9 mg/dL (7-20); Calcium 8.2 mg/dL (8.6-10.8); Carbon Dioxide 22 mEq/L (19-29); Chloride 104 mEq/L (98-109); Glucose 104 mg/dL (70-99); Osmolality,Calculated 277 (280-300); Potassium 3.5 mEq/L (3.5-4.5); Sodium 134 mEq/L (136-145); eGFR For African Americans > 60 (> 60); eGFR For Non-African Americans > 60 (> 60)
[2017-04-14] MEDS: *HR* HYDROcodone/Acet 5/325 mg TABLET PO PRN (21:36)
[2017-04-14] MEDS: Acetaminophen 325 MG TABLET PO PRN (21:36)
[2017-04-14] MEDS: *HR* Heparin 5,000 UNIT/ML VIAL SQ SCH (21:36)
[2017-04-14] MEDS ORDERED: 0.9 % Sodium Chloride 1,000 ML IVC SCH ×2 (21:45→23:39)
[2017-04-14 22:42] LABS: Bilirubin,Urine Small (Negative); Blood,Urine Negative (Negative); Clarity,Urine Clear (Clear); Color,Urine Dark Yellow (Yellow); Glucose,Urine (UA) Normal (Normal); Ketones,Urine Negative (Negative); Leukocyte Esterase,Urine Trace (Negative); Nitrite,Urine Negative (Negative); Protein,Urine 30 mg/dL (Neg-Trace); Specific Gravity,Urine > 1.030 (1.010-1.025); Urobilinogen,Urine Normal (Normal)
[2017-04-14 22:45] LABS: Bacteria,Urine None Seen per hpf (None-Few); Hyaline Casts,Urine Few per lpf (None-Few); Squamous Epithelial Cell,Urine Many per lpf (None-Few); WBC,Urine 30-50 per hpf (0-3)
[2017-04-14 22:58] LABS: Mucus,Urine Few (Few)
[2017-04-15] MEDS: *HR* Morphine 2 MG/ML SYRINGE IVP PRN ×4 (00:20→21:29)
[2017-04-15 01:39] LABS: Basophils % 0.2 %; Eosinophils # 0.2 K/mcL (0.0-0.6); Eosinophils % 0.8 %; Hematocrit 34.3 % (35.3-44.9); Hemoglobin 11.2 g/dL (11.5-15.4); Immature Granulocytes % 0.9 % (0-4); Lymphocytes # 0.5 K/mcL (0.6-4.6); Lymphocytes % 2.7 %; Mean Corpuscular HGB Conc 32.7 g/dL (31.6-35.5); Mean Corpuscular Hemoglobin 27.9 pg (28.0-33.3); Mean Corpuscular Volume 85.5 fL (83.0-100.0); Monocytes # 0.6 K/mcL (0.0-1.3); Monocytes % 2.9 %; Neutrophils # 18.2 K/mcL (1.6-8.9); Platelet Count 229 K/mcL (140-400); Red Blood Count 4.01 M/mcL (3.82-4.97); Segmented Neutrophils % 92.5 %
[2017-04-15 01:53] LABS: Calcium 8.3 mg/dL (8.6-10.8); Potassium 3.4 mEq/L (3.5-4.5)
[2017-04-15] MEDS ORDERED: Piperacillin/Tazobactam 3.375 GM in D5% in Water 50 ML IVPB SCH ×2 (02:00)
[2017-04-15] MEDS ORDERED: Vancomycin (wt based) 1,000 MG VIAL IV SCH (02:00)
[2017-04-15] MEDS: Piperacillin/Tazobactam 3.375 GM in D5% in Water 50 ML IVPB SCH ×3 (02:08→16:10)
[2017-04-15] MEDS: Acetaminophen 325 MG TABLET PO PRN ×3 (03:39→16:10)
[2017-04-15] MEDS ORDERED: Vancomycin 1,750 MG in D5% in Water 500 ML IVPB SCH (05:00)
[2017-04-15] MEDS: *HR* Heparin 5,000 UNIT/ML VIAL SQ SCH ×2 (05:11→16:10)
[2017-04-15] MEDS: *HR* HYDROcodone/Acet 5/325 mg TABLET PO PRN ×2 (12:15→18:18)
[2017-04-15] MEDS: Ondansetron 4 MG/2 ML VIAL IVP PRN (15:56)
[2017-04-15] MEDS ORDERED: Vancomycin 1,500 MG in D5% in Water 250 ML IVPB SCH (17:00)
[2017-04-15] MEDS ORDERED: Potassium Chloride 40 MEQ, Lidocaine 1% 2 ML in D5% in Water 500 ML IVPB ONE (17:02)
--- NOTE | 2017-04-15 17:05 | Internal Med Progress Note ---
Date of Encounter: 04/15/17 Time of Encounter: 17:03 - Assessment and plan (1) Sepsis Current Visit: Yes Status: Acute Qualifiers: Sepsis type: sepsis due to unspecified organism Qualified Code(s): A41.9 - Sepsis, unspecified organism (2) Cellulitis of right leg Current Visit: No Status: Acute (3) Hypokalemia Current Visit: Yes Status: Acute (4) Acute kidney injury Current Visit: Yes Status: Acute - Subjective Interval history: Complaining of pain not feeling well appear toxic. Right posterior thigh has a small puncture wound still oozing pus mild surrounding erythema. Neurovascular status is stable. Potassium supplemented and will be to recheck. CBC CMP ordered. Start IV fluid and continue IV vancomycin and Zosyn. - Constitutional Vitals: Temp Pulse Resp BP Pulse Ox 99.9 F H 97 16 91/57 96 04/15/17 15:57 04/15/17 15:57 04/15/17 15:57 04/15/17 15:57 04/15/17 15:57 General appearance: Present: A&O X 3, obese, answers questions appropriately - Head Head exam: Present: atraumatic, normocephalic - Eye Eye exam: Present: PERRL, conjuntiva pink, sclera anicteric Pupils: Present: PERRL - Neck Neck exam general surgery: Present: supple, trachea midline. Absent: lymphadenopathy - Respiratory Respiratory exam: Present: CTAB. Absent: accessory muscle use, rales, rhonchi, wheezes - Cardiovascular Cardiovascular exam: Present: RRR, +S1, +S2. Absent: diastolic murmur, gallop, rubs, systolic murmur - GI/Abdominal GI/Abdominal exam: Present: normal bowel sounds, soft, no peritoneal signs. Absent: distended, tenderness - Extremities Exam Extremities exam: Present: warm, radial pulses palpable and symmetrical. Absent : calf tenderness, cyanotic, pedal edema Additional comments: Right posterior thigh has a small open skin abscess still draining pus and surrounding erythema and tenderness - Neurological Exam Neurological exam: Present: CN II-XII intact, oriented X3, no focal deficits. Absent: pronater drift, facial droop, speech deficit - Skin Skin exam: Present: dry, intact Internal Medicine: Result - Labs CBC & Chem 7: 04/15/17 01:31 04/15/17 01:31 Labs: Short CBC 04/14/17 04/15/17 Range/Units 21:11 01:31 WBC 21.1 H 19.7 H (4.3-11.1) K/mcL Hgb 11.4 L 11.2 L (11.5-15.4) g/dL Hct 34.3 L 34.3 L (35.3-44.9) % Plt Count 256 229 (140-400) K/mcL Neutrophils # 18.8 H 18.2 H (1.6-8.9) K/mcL BMP 04/14/17 04/15/17 21:11 01:31 Sodium 134 L 133 L Potassium 3.5 3.4 L Chloride 104 104 Carbon Dioxide 22 21 BUN 9 12 Creatinine 0.87 1.30 H Glucose 104 H 86 Calcium 8.2 L 8.3 L Urine 04/14/17 Range/Units 21:50 Urine Color Dark Yellow (Yellow) Urine Clarity Clear (Clear) Urine pH 6.0 (5.0-8.0) pH Units Ur Specific [place] > 1.030 H (1.010-1.025) Urine Protein 30 H (Neg-Trace) mg/dL Urine Glucose (UA) Normal (Normal) mg/dL - ABG Interpretation ABG results: PT/INR, D-dimer PT 15.5 Seconds (9.4-12.1) H 04/14/17 14:10 Consult Discharge Plan - Plan Referrals: Misti Parsons, [employer] [Primary Care Provider] -
[2017-04-15] MEDS ORDERED: 0.9 % Sodium Chloride 1,000 ML IVC SCH (17:15)
[2017-04-15] MEDS: *HR* Promethazine 25 MG/ML VIAL IVP PRN (21:29)
[2017-04-16] MEDS: Ondansetron 4 MG/2 ML VIAL IVP PRN ×3 (02:02→21:13)
[2017-04-16] MEDS: Piperacillin/Tazobactam 3.375 GM in 0.9 % Sodium Chloride Mini Bag 100 ML IVPB SCH ×3 (02:10→20:09)
[2017-04-16] MEDS: *HR* Morphine 2 MG/ML SYRINGE IVP PRN ×2 (02:46→19:58)
[2017-04-16 04:34] LABS: Basophils % 0.1 %; Eosinophils # 0.5 K/mcL (0.0-0.6); Eosinophils % 2.6 %; Hematocrit 30.7 % (35.3-44.9); Hemoglobin 10.1 g/dL (11.5-15.4); Lymphocytes # 0.7 K/mcL (0.6-4.6); Lymphocytes % 3.6 %; Mean Corpuscular HGB Conc 32.9 g/dL (31.6-35.5); Mean Corpuscular Hemoglobin 27.9 pg (28.0-33.3); Mean Corpuscular Volume 84.8 fL (83.0-100.0); Mean Platelet Volume 11.7 fL (9.4-12.4); Monocytes # 0.7 K/mcL (0.0-1.3); Monocytes % 3.6 %; Neutrophils # 18.2 K/mcL (1.6-8.9); Platelet Count 197 K/mcL (140-400); Red Blood Count 3.62 M/mcL (3.82-4.97); Red Cell Distribution Width 14.1 % (11.5-14.5); Segmented Neutrophils % 89.1 %
[2017-04-16 04:51] LABS: Albumin/Globulin Ratio 0.7 (1.1-2.2); Bilirubin,Total 1.3 mg/dL (0.2-1.2); Globulin 3.6 g/dL (2.4-3.5); Potassium 3.8 mEq/L (3.5-4.5)
[2017-04-16 05:05] LABS: Albumin 2.4 g/dL (3.5-5.0)
[2017-04-16] MEDS: *HR* Promethazine 25 MG/ML VIAL IVP PRN ×3 (05:21→23:20)
[2017-04-16] MEDS: *HR* Heparin 5,000 UNIT/ML VIAL SQ SCH ×2 (05:33→20:04)
[2017-04-16] MEDS: *HR* HYDROcodone/Acet 5/325 mg TABLET PO PRN ×2 (05:34→17:08)
--- NOTE | 2017-04-16 10:12 | Electrocardiograph Report ---
[employer] Test Date: 2017-04-14 Pat Name: Alexus France Department: 102 Room: [facility] Gender: F Digital Ret[employer]cher: : 1980 Requested By: Jose Gayle Order Number: [id number] Reading MD: Akil Alfredo MD Measurements Intervals [place] Rate: 104 P: 61 CA: 128 QRS: 2 QRSD: 103 T: -19 QT: 314 QTc: 374 Interpretive Statements SINUS TACHYCARDIA ST DEVIATION AND MODERATE T-WAVE ABNORMALITY, CONSIDER ANTERIOR ISCHEMIA [-0.1+ mV T WAVE IN V3/V4]; present in old tracing 01/2017 Electronically Signed On 04-16-2017 10:10:22 EST by Akil Alfredo MD
--- NOTE | 2017-04-16 14:50 | Internal Med Progress Note ---
Date of Encounter: 04/16/17 Time of Encounter: 14:48 - Assessment and plan (1) Sepsis Current Visit: Yes Status: Acute Assessment and plan: White count is 20,000. Right thigh cellulitis and infection. On IV fluid and IV Zosyn and follow CBC and CMP. Qualifiers: Sepsis type: sepsis due to unspecified organism Qualified Code(s): A41.9 - Sepsis, unspecified organism (2) Acute kidney injury Current Visit: Yes Status: Acute Assessment and plan: Patient creatinine has jumped up to 3.5 while previously it was normal. She had a CT with contrast of right lower extremity in the ER and was started on IV vancomycin. She is complaining of nausea and vomiting with poor by mouth intake. I will increase her IV fluid 250 mL an hour recheck her creatinine. I will stop vancomycin and for now continue Zosyn. I have ordered renal ultrasound and UA and consult nephrology. (3) Nausea and vomiting Current Visit: Yes Status: Acute Assessment and plan: Complaining of nausea and vomiting started IV fluid and IV Zofran. Order ultrasound gallbladder as her white cell count is going up. Qualifiers: Vomiting type: unspecified Vomiting Intractability: unspecified Qualified Code(s): R11.2 - Nausea with vomiting, unspecified (4) Cellulitis of right leg Current Visit: No Status: Acute Assessment and plan: Seems to have improved with IV vancomycin and Zosyn but as noted above and: Vancomycin will be stopped. Initial CT did not show any abscess but when I tries to squeeze on her right posterior thigh wound some pus came out. Requesting wound culture continue IV Zosyn. Order repeat MRI right thigh without contrast as her white count is is still 20,000. (5) Hypokalemia Current Visit: Yes Status: Acute Assessment and plan: Corrected - Subjective Interval history: Complaining of pain not feeling well appear toxic. Right posterior thigh has a small puncture wound still oozing pus mild surrounding erythema. Neurovascular status is stable. Potassium supplemented and will be to recheck. CBC CMP ordered. Start IV fluid and continue IV vancomycin and Zosyn. - Constitutional Vitals: Temp Pulse Resp BP Pulse Ox 98.1 F 78 16 105/69 94 04/16/17 11:19 04/16/17 11:19 04/16/17 11:19 04/16/17 11:19 04/16/17 11:19 General appearance: Present: A&O X 3, obese, answers questions appropriately Internal Medicine: Result - Labs CBC & Chem 7: 04/16/17 03:34 04/16/17 03:34 Labs: Short CBC 04/16/17 Range/Units 03:34 WBC 20.4 H (4.3-11.1) K/mcL Hgb 10.1 L (11.5-15.4) g/dL Hct 30.7 L (35.3-44.9) % Plt Count 197 (140-400) K/mcL Neutrophils # 18.2 H (1.6-8.9) K/mcL BMP 04/16/17 03:34 Sodium 130 L Potassium 3.8 Chloride 101 Carbon Dioxide 20 BUN 31 H D Creatinine 3.51 H D Glucose 90 Calcium 8.0 L Liver Function 04/16/17 Range/Units 03:34 Total Bilirubin 1.3 H (0.2-1.2) mg/dL AST 26 (5-34) Units/L ALT 32 (0-55) Units/L Alkaline Phosphatase 109 (38-126) Units/L Albumin 2.4 L D (3.5-5.0) g/dL - ABG Interpretation ABG results: PT/INR, D-dimer PT 15.5 Seconds (9.4-12.1) H 04/14/17 14:10 Consult Discharge Plan - Plan Referrals: Misti Parsons, ENGINEERING SYSTEMS ANALYST [Primary Care Provider] -
--- NOTE | 2017-04-16 16:56 | Nephrology Consult Note ---
Date of Encounter: 04/16/17 Time of Encounter: 16:45 Assessment and Plan (1) Acute kidney injury Current Visit: Yes Status: Acute Elevated serum creatinine in the setting of cellulitis, iv contrast exposure and vanco toxicity Agree with stopping vanco Agree with US of kidneys Agree with IVF Check CPK and uric acid levels Check UA, eosinophil, sodium and creatinine No acute indiction for TRIPE COOKER yet but will monitor SCr and UOP closely (2) Hyponatremia Current Visit: Yes Status: Acute mild at 130, should improve with IVF (3) Cellulitis of right leg Current Visit: No Status: Acute abx per primary team but not vanco Will monitor vanco levels till down History of Present Illness - Reason for Consult Consult date: 04/16/17 Acute Kidney Injury Requesting physician: Fina Borges - History of Present Illness 37 y o female with PMH of recurrent skin infections admitted with another cellulitis of the right thigh. She was noted with worsening serum creatinine today [address] with contrast on admission and iv vanco with trough of 42.1. She also reports decreased po intake on admission due to persistent nausea and vomiting. SCr elevated to 3.51 from 1.3 yesterday and 0.86 the day prior. Pt also reports decreased UOP since admission. No NSAIDs use. Past Med Surg Social Fam HX - Past Medical History Medical history: no medical history Psychiatric history: no psych history - Past Surgical History Surgical History: appendectomy, cholecystectomy - Social History Smoking Status: Never smoker Smokeless Tobacco Status: No Alcohol use: none Drug use: none - Family History Father Living Status: Still Living Hx Family Cardiac Disorders: Yes (hypertension) Hx Family Endocrine Disorder: Yes (diabetes) Medications and Allergies No Known Home Drugs 04/14/17 [History] 3 Allergy/AdvReac Type Severity Reaction Status Date / Time No Known Allergies Allergy Verified 03/11/17 15:45 Review of Systems All Systems: reviewed and no additional remarkable complaints except as stated ( 10 system reviewed) Exam - Vital Signs Vital signs: Initial Vital Signs Temp Pulse Resp BP Pulse Ox 99.5 F 118 18 137/78 97 04/14/17 12:47 04/14/17 12:47 04/14/17 12:47 04/14/17 12:47 04/14/17 12:47 Vital Signs - Last 8 Hours Temp Pulse Resp BP Pulse Ox 04/16/17 15:49 99.0 F 76 16 123/79 92 04/16/17 11:19 98.1 F 78 16 105/69 94 Intake and Output 04/16/17 04/16/17 04/16/17 07:59 15:59 23:59 Intake Total 110 / 110 Output Total 0 / 0 Balance 110 / 110 Intake: IV Fluids 110 / 110 Zosyn 3.375 GM In 0.9 % Sodium 100 / 100 Chloride (Mini-Bag +) 100 ML @ 25 mls/hr IVPB Q8H [facility] Rx#: [id number] Vancocin 1,500 MG In Dextrose 5 10 / 10 % 250 ML @ 166.67 mls/hr IVPB Q12H [facility] Rx#:[id number] Output: Urine 0 / 0 Other: Meal Breakfast Percent of Meal Consumed 5% # Voids 0 - General Appearance General appearance: well-developed, well-nourished EENT: ATNC, mucous membranes dry Neck: no JVD, supple Respiratory: clear (ant bilat) Cardiology: no edema, normal S1, normal S2 Gastrointestinal: no tenderness, no guarding, obese Integumentary: warm and dry Neurologic: no focal deficit Musculoskeletal: no deformities Psychiatric: mood/affect appropriate Results - Lab Results 04/18/17 05:37 04/18/17 05:37 Most recent lab results Calcium 8.0 mg/dL (8.6-10.8) L 04/16/17 03:34 Phosphorus 2.5 mg/dL (2.3-4.7) 04/14/17 14:10 Magnesium 1.5 mg/dL (1.6-2.6) L 04/14/17 14:10 Consult Discharge Plan - Plan Referrals: Misti Parsons, SPRAY GUN REPAIRER HELPER [Primary Care Provider] -
[2017-04-16 17:21] LABS: Uric Acid 4.2 mg/dL (2.6-6.0)
[2017-04-16] MEDS ORDERED: 0.9 % Sodium Chloride 1,000 ML IVC ONE (17:32)
[2017-04-16] MEDS: 0.9 % Sodium Chloride 1,000 ML IVC SCH (21:14)
[2017-04-16 22:42] LABS: Bilirubin,Urine Negative (Negative); Blood,Urine Moderate (Negative); Clarity,Urine Clear (Clear); Color,Urine Yellow (Yellow); Glucose,Urine (UA) Normal (Normal); Ketones,Urine Negative (Negative); Leukocyte Esterase,Urine Moderate (Negative); Nitrite,Urine Negative (Negative); Protein,Urine 100 mg/dL (Neg-Trace); Specific Gravity,Urine 1.015 (1.010-1.025); Urobilinogen,Urine Normal (Normal)
[2017-04-16 22:47] LABS: Squamous Epithelial Cell,Urine Many per lpf (None-Few)
[2017-04-16 22:48] LABS: Bacteria,Urine Moderate per hpf (None-Few); WBC,Urine 15-30 per hpf (0-3)
[2017-04-17] MEDS: *HR* Morphine 2 MG/ML SYRINGE IVP PRN ×4 (00:05→20:09)
[2017-04-17] MEDS: Piperacillin/Tazobactam 3.375 GM in 0.9 % Sodium Chloride Mini Bag 100 ML IVPB SCH ×3 (02:43→17:58)
[2017-04-17] MEDS: Ondansetron 4 MG/2 ML VIAL IVP PRN ×2 (03:49→18:03)
[2017-04-17] MEDS: *HR* HYDROcodone/Acet 5/325 mg TABLET PO PRN (05:10)
[2017-04-17] MEDS: 0.9 % Sodium Chloride 1,000 ML IVC SCH ×3 (05:23→18:56)
[2017-04-17] MEDS: *HR* Heparin 5,000 UNIT/ML VIAL SQ SCH ×2 (05:24→17:34)
[2017-04-17 06:29] LABS: Basophils % 0.2 %; Eosinophils # 0.4 K/mcL (0.0-0.6); Eosinophils % 3.3 %; Hematocrit 30.3 % (35.3-44.9); Hemoglobin 9.8 g/dL (11.5-15.4); Immature Granulocytes % 0.8 % (0-4); Lymphocytes # 1.2 K/mcL (0.6-4.6); Mean Corpuscular HGB Conc 32.3 g/dL (31.6-35.5); Mean Corpuscular Hemoglobin 27.5 pg (28.0-33.3); Mean Corpuscular Volume 84.9 fL (83.0-100.0); Mean Platelet Volume 11.4 fL (9.4-12.4); Monocytes # 0.8 K/mcL (0.0-1.3); Monocytes % 5.6 %; Neutrophils # 10.9 K/mcL (1.6-8.9); Platelet Count 202 K/mcL (140-400); Red Blood Count 3.57 M/mcL (3.82-4.97); Red Cell Distribution Width 13.8 % (11.5-14.5); Segmented Neutrophils % 81.1 %
[2017-04-17 06:38] LABS: Albumin 2.2 g/dL (3.5-5.0); Albumin/Globulin Ratio 0.6 (1.1-2.2); Bilirubin,Total 0.5 mg/dL (0.2-1.2); Calcium 7.7 mg/dL (8.6-10.8); Globulin 3.9 g/dL (2.4-3.5); Potassium 3.8 mEq/L (3.5-4.5); Total Protein 6.1 g/dL (6.0-8.3)
[2017-04-17] MEDS ORDERED: Aminoglycoside Consult 1 EACH MC ONE (08:56)
[2017-04-17] MEDS: *HR* Promethazine 25 MG/ML VIAL IVP PRN ×2 (10:03→23:08)
--- NOTE | 2017-04-17 15:55 | Internal Med Progress Note ---
Date of Encounter: 04/17/17 Time of Encounter: 15:53 - Assessment and plan (1) Sepsis Current Visit: Yes Status: Acute Assessment and plan: White count has started coming down. Right thigh cellulitis and infection. On IV fluid and IV Zosyn and follow CBC and CMP. Qualifiers: Sepsis type: sepsis due to unspecified organism Qualified Code(s): A41.9 - Sepsis, unspecified organism (2) Acute kidney injury Current Visit: Yes Status: Acute Assessment and plan: Patient creatinine has jumped up to 3.5 while previously it was normal. She had a CT with contrast of right lower extremity in the ER and was started on IV vancomycin. Recently she was diagnosed with Impetigo by her medical front desk coordinator. ASO titer/ Biopsy pending. She is complaining of nausea and vomiting with poor by mouth intake. I will increase her IV fluid 150 mL an hour recheck her creatinine. I will stop vancomycin and for now continue Zosyn. Discussed with Dr. Toribio. Suspect contrast nephropathy. However she has already started making urine. Ultrasound renal negative for obstruction . (3) Nausea and vomiting Current Visit: Yes Status: Acute Assessment and plan: Seems to have improved. Ultrasound showed previous cholecystectomy. Biliary system showed no dilatation and liver seems normal.. Qualifiers: Vomiting type: unspecified Vomiting Intractability: unspecified Qualified Code(s): R11.2 - Nausea with vomiting, unspecified (4) Cellulitis of right leg Current Visit: No Status: Acute Assessment and plan: CT/MRI did not show any abscesses. Continue IV Zosyn. WBC count has not started coming down and now 13,000. (5) Hypokalemia Current Visit: Yes Status: Acute Assessment and plan: Corrected - Subjective Interval history: Complaining of pain not feeling well appear toxic. Right posterior thigh has a small puncture wound still oozing pus mild surrounding erythema. Neurovascular status is stable. Potassium supplemented and will be to recheck. CBC CMP ordered. Start IV fluid and continue IV vancomycin and Zosyn. - Constitutional Vitals: Temp Pulse Resp BP Pulse Ox 98.6 F 77 18 156/94 95 04/17/17 15:46 04/17/17 15:46 04/17/17 15:46 04/17/17 15:46 04/17/17 15:46 General appearance: Present: A&O X 3, obese, answers questions appropriately Internal Medicine: Result - Labs CBC & Chem 7: 04/17/17 06:10 04/17/17 06:10 Labs: Short CBC 04/17/17 Range/Units 06:10 WBC 13.4 H (4.3-11.1) K/mcL Hgb 9.8 L (11.5-15.4) g/dL Hct 30.3 L (35.3-44.9) % Plt Count 202 (140-400) K/mcL Neutrophils # 10.9 H (1.6-8.9) K/mcL BMP 04/16/17 04/17/17 03:34 06:10 Sodium 130 L 134 L Potassium 3.8 3.8 Chloride 101 106 Carbon Dioxide 20 16 L BUN 31 H D 44 H D Creatinine 3.51 H D 5.63 H D Glucose 90 88 Calcium 8.0 L 7.7 L Liver Function 04/16/17 04/17/17 Range/Units 03:34 06:10 Total Bilirubin 1.3 H 0.5 (0.2-1.2) mg/dL AST 26 15 (5-34) Units/L ALT 32 20 (0-55) Units/L Alkaline Phosphatase 109 71 (38-126) Units/L Albumin 2.4 L D 2.2 L (3.5-5.0) g/dL Urine 04/16/17 Range/Units 22:15 Urine Color Yellow (Yellow) Urine Clarity Clear (Clear) Urine pH 6.0 (5.0-8.0) pH Units Ur Specific [place] 1.015 (1.010-1.025) Urine Protein 100 H (Neg-Trace) mg/dL Urine Glucose (UA) Normal (Normal) mg/dL - ABG Interpretation ABG results: PT/INR, D-dimer PT 15.5 Seconds (9.4-12.1) H 04/14/17 14:10 - Impressions Impressions Lower Extremity MRI 04/16/17 14:45 IMPRESSION: 1. Focal area of mild subcutaneous edema in the mid right posterior thigh compatible with cellulitis. No drainable fluid collection. 2. No acute osseous abnormality. 3. Small volume of fluid in the right greater trochanteric bursa. D/ / Mao Ochoa MD / Mao Ochoa MD Interpreting Provider: Mao Ochoa MD Abdomen Ultrasound 04/16/17 22:00 IMPRESSION: Negative right upper quadrant ultrasound. D/ / Reagan Soliz MD / Reagan Soliz MD Interpreting Provider: Reagan Soliz MD Retroperitoneum Ultrasound 04/16/17 22:30 IMPRESSION: Negative ultrasound of the kidneys and urinary bladder. D/ / Reagan Soliz MD / Reagan Soliz MD Interpreting Provider: Reagan Soliz MD Consult Discharge Plan - Plan Referrals: Misti Parsons FINANCIAL SERVICES AGENT [Primary Care Provider] -
--- NOTE | 2017-04-17 17:21 | Nephrology Progress Note ---
Date of Encounter: 04/17/17 Time of Encounter: 12:00 - Assessment and Plan (1) Acute kidney injury Current Visit: Yes Status: Acute SCr worse at 5.63, GFR 8 likely due to still elevated vanco levels though uOP improved with IVF Will continue IVF for now, UOP reassuring No acute indication for RECEIVER DISPATCHER today but if any worse tomorrow might still need. discussed in great details with pt current status and possible RECEIVER DISPATCHER need if no improvement (2) Hyponatremia Current Visit: Yes Status: Acute Sodium noted improving at 134, will monitor on IVF (3) Cellulitis Current Visit: Yes Status: Acute Abx per primary team Vanco level improving but still elevated off vanco Qualifiers: Site of cellulitis: extremity Site of cellulitis of extremity: lower extremity Laterality: right Qualified Code(s): L03.115 - Cellulitis of right lower limb Subjective Interval history: Pt seen and examined still does not feel good. still some nausea and having difficulty drinking fluids. UOP improved at 800cc in the past 24hrs Objective - Vital Signs Vital signs: Vital Signs Temp Pulse Resp BP Pulse Ox 04/17/17 15:46 98.6 F 77 18 156/94 95 04/17/17 11:00 98.6 F 72 18 137/88 95 04/17/17 06:35 98.5 F 85 18 147/90 94 04/17/17 04:58 98.3 F 75 15 154/88 95 04/16/17 23:25 99.4 F 79 17 130/85 95 04/16/17 19:10 99.3 F 80 17 124/78 94 Intake and Output 04/17/17 04/17/17 04/17/17 07:59 15:59 23:59 Intake Total 1200 / 1200 1500 / 1500 Output Total 200 / 200 700 / 700 Balance 1000 / 1000 800 / 800 Intake: IV Fluids 1200 / 1200 1100 / 1100 0.9 % Sodium Chloride 1,000 ML 1000 / 1000 1000 / 1000 @ 150 mls/hr IVC .Q6H40M [facility] Rx #:[id number] Zosyn 3.375 GM In 0.9 % Sodium 200 / 200 100 / 100 Chloride (Mini-Bag +) 100 ML @ 25 mls/hr IVPB Q8H [facility] Rx#: [id number] Oral 400 / 400 Output: Urine 700 / 700 Emesis 200 / 200 Other: # Voids 1 1 - General Appearance General appearance: Present: well-developed, well-nourished EENT: Present: ATNC, mucous membranes dry Neck: Present: no JVD, supple Respiratory: Present: clear Cardiology: Present: no edema, normal S1, normal S2 Gastrointestinal: Present: no tenderness, no guarding, obese Integumentary: Present: warm and dry Neurologic: Present: no focal deficit Musculoskeletal: Present: no deformities Psychiatric: Present: mood/affect appropriate - Lab 04/18/17 05:37 04/18/17 05:37 Most recent lab results Calcium 7.7 mg/dL (8.6-10.8) L 04/17/17 06:10 Phosphorus 2.5 mg/dL (2.3-4.7) 04/14/17 14:10 Magnesium 1.5 mg/dL (1.6-2.6) L 04/14/17 14:10 Consult Discharge Plan - Plan Referrals: Misti Parsons, QUARTER SEAMER [Primary Care Provider] -
[2017-04-18] MEDS: 0.9 % Sodium Chloride 1,000 ML IVC SCH ×4 (01:31→22:32)
[2017-04-18] MEDS: *HR* Morphine 2 MG/ML SYRINGE IVP PRN ×4 (03:29→22:29)
[2017-04-18] MEDS: Ondansetron 4 MG/2 ML VIAL IVP PRN ×3 (03:29→23:49)
[2017-04-18 06:31] LABS: Basophils % 0.2 %; Eosinophils # 0.4 K/mcL (0.0-0.6); Eosinophils % 3.8 %; Hemoglobin 9.4 g/dL (11.5-15.4); Immature Granulocytes % 0.8 % (0-4); Lymphocytes # 1.2 K/mcL (0.6-4.6); Lymphocytes % 12.4 %; Mean Corpuscular HGB Conc 32.4 g/dL (31.6-35.5); Mean Corpuscular Hemoglobin 27.8 pg (28.0-33.3); Mean Corpuscular Volume 85.8 fL (83.0-100.0); Mean Platelet Volume 11.1 fL (9.4-12.4); Monocytes # 0.9 K/mcL (0.0-1.3); Monocytes % 10.1 %; Neutrophils # 6.8 K/mcL (1.6-8.9); Platelet Count 194 K/mcL (140-400); Red Blood Count 3.38 M/mcL (3.82-4.97); Red Cell Distribution Width 14.1 % (11.5-14.5); Segmented Neutrophils % 72.7 %
[2017-04-18] MEDS: Piperacillin/Tazobactam 3.375 GM in 0.9 % Sodium Chloride Mini Bag 100 ML IVPB SCH ×2 (06:42→18:39)
[2017-04-18] MEDS: *HR* Heparin 5,000 UNIT/ML VIAL SQ SCH ×2 (06:42→18:40)
[2017-04-18 06:43] LABS: Albumin/Globulin Ratio 0.5 (1.1-2.2); Bilirubin,Total 0.4 mg/dL (0.2-1.2); Calcium 7.6 mg/dL (8.6-10.8); Potassium 3.7 mEq/L (3.5-4.5)
--- NOTE | 2017-04-18 11:05 | Nephrology Progress Note ---
Date of Encounter: 04/18/17 Time of Encounter: 11:00 - Assessment and Plan (1) Acute kidney injury Current Visit: Yes Status: Acute SCr worse at 6.66, GFR 6 likely due to still elevated vanco levels though UOP improved with IVF, hopefully should plateau soon and trend down. Consisent with ATN picture Will continue IVF for now, UOP reassuring. i No acute indication for ENGLISH ADJUNCT FACULTY today but if any worse tomorrow might still need. Discussed in great details with pt and mother current status and possible ENGLISH ADJUNCT FACULTY need if no improvement (2) Cellulitis Current Visit: Yes Status: Acute Abx per primary team Vanco level improving but still elevated off vanco Qualifiers: Site of cellulitis: extremity Site of cellulitis of extremity: lower extremity Laterality: right Qualified Code(s): L03.115 - Cellulitis of right lower limb Subjective Interval history: Pt seen and examined still does not feel good. Still some nausea with poor po intake and now diarrhea. Also complaining of flank pain. Mother present at bedside. UOP improved 1000cc in the past 24hrs Objective - Vital Signs Vital signs: Vital Signs Temp Pulse Resp BP Pulse Ox 04/18/17 03:36 98.5 F 71 20 154/83 99 04/18/17 00:02 98.7 F 79 18 130/71 94 04/17/17 19:37 99.2 F 81 18 133/78 97 04/17/17 15:46 98.6 F 77 18 156/94 95 Intake and Output 04/17/17 04/18/17 04/18/17 23:59 07:59 15:59 Intake Total 1400 / 1400 1000 / 1000 100 / 100 Output Total 300 / 300 Balance 1100 / 1100 1000 / 1000 100 / 100 Intake: IV Fluids 1000 / 1000 1000 / 1000 100 / 100 0.9 % Sodium Chloride 1,000 ML 1000 / 1000 1000 / 1000 @ 150 mls/hr IVC .Q6H40M [facility] Rx #:[id number] Zosyn 3.375 GM In 0.9 % Sodium 100 / 100 Chloride (Mini-Bag +) 100 ML @ 25 mls/hr IVPB Q12HR [facility] Rx#: [id number] Oral 400 / 400 Output: Urine 300 / 300 Other: Stool Size Small Stool Consistency loose Stool Color Brown # Bowel Movements 1 - General Appearance General appearance: Present: well-developed, well-nourished EENT: Present: ATNC, mucous membranes dry Neck: Present: no JVD, supple Respiratory: Present: clear Cardiology: Present: no edema, normal S1, normal S2 Gastrointestinal: Present: no tenderness, no guarding, obese Integumentary: Present: warm and dry Neurologic: Present: no focal deficit Musculoskeletal: Present: no deformities Psychiatric: Present: mood/affect appropriate - Lab 04/18/17 05:37 04/18/17 05:37 Most recent lab results Calcium 7.6 mg/dL (8.6-10.8) L 04/18/17 05:37 Phosphorus 2.5 mg/dL (2.3-4.7) 04/14/17 14:10 Magnesium 1.5 mg/dL (1.6-2.6) L 04/14/17 14:10 Urine Creatinine 40 mg/dL 04/17/17 14:20 Urine Sodium 47.0 mEq/L 04/17/17 14:20 Consult Discharge Plan - Plan Referrals: Misti Parsons, STROKE BELT SANDER OPERATOR [Primary Care Provider] -
[2017-04-18 11:56] LABS: Vancomycin,Random 34.1 mcg/mL
--- NOTE | 2017-04-18 15:07 | Internal Med Progress Note ---
Date of Encounter: 04/18/17 Time of Encounter: 15:03 - Assessment and plan (1) Sepsis Current Visit: Yes Status: Acute Assessment and plan: White count has started coming down. Right thigh cellulitis and infection. On IV fluid and IV Zosyn and follow CBC and CMP. Qualifiers: Sepsis type: sepsis due to unspecified organism Qualified Code(s): A41.9 - Sepsis, unspecified organism (2) Acute kidney injury Current Visit: Yes Status: Acute Assessment and plan: Patient creatinine has jumped up to 3.5 while previously it was normal. She had a CT with contrast of right lower extremity in the ER and was started on IV vancomycin. Recently she was diagnosed with Impetigo by her golf course manager. ASO titer/ Biopsy pending. She is complaining of nausea and vomiting with poor by mouth intake. I will increase her IV fluid 150 mL an hour recheck her creatinine. I will stop vancomycin and for now continue Zosyn. Discussed with Dr. Toribio. Suspect contrast nephropathy. However she has already started making urine. Ultrasound renal negative for obstruction Dr. Jessica Sanchez will decide tomorrow if patient needs dialysis. Her creatinine is worsening. . (3) Nausea and vomiting Current Visit: Yes Status: Acute Assessment and plan: Seems to have improved. Ultrasound showed previous cholecystectomy. Biliary system showed no dilatation and liver seems normal.. Qualifiers: Vomiting type: unspecified Vomiting Intractability: unspecified Qualified Code(s): R11.2 - Nausea with vomiting, unspecified (4) Cellulitis of right leg Current Visit: No Status: Acute Assessment and plan: CT/MRI did not show any abscesses. Continue IV Zosyn. WBC count has not started coming down and now 13,000. (5) Hypokalemia Current Visit: Yes Status: Acute Assessment and plan: Corrected (6) Diarrhea Current Visit: Yes Status: Acute Qualifiers: Diarrhea type: unspecified type Qualified Code(s): R19.7 - Diarrhea, unspecified (7) Diarrhea Current Visit: Yes Status: Acute Assessment and plan: Started yesterday. Send stool for C. difficile culture Qualifiers: Diarrhea type: unspecified type Qualified Code(s): R19.7 - Diarrhea, unspecified - Subjective Interval history: Admitted for right posterior thigh cellulitis and subcutaneous infection without any abscess and currently on IV Zosyn, afebrile with normal white count now, blood cultures are negative to this date urine culture showed Kocuria which is perhaps contamination. Also complaining of vague generalized abdominal pain nausea and vomiting. Ultrasound and electrolytes are negative. She is on Protonix. On admission she had contrast CT and later developed acute renal failure which marketing administrator feels is due to contrast nephrotoxicity. We gave her IV fluid challenge and she does produce urine her creatinine is going up nephrology is considering possibility of hemodialysis. 04/18 overall seems better but is still complaining of abdominal pain that does not appear to wish nauseous. Since last night has developed diarrhea and we will request stool C. difficile as she is on broad-spectrum antibiotics. Abdominal pain has not changed since admission. No blood in the stools. - Constitutional Vitals: Temp Pulse Resp BP Pulse Ox 98.0 F 76 17 162/86 96 04/18/17 13:19 04/18/17 13:19 04/18/17 13:19 04/18/17 13:19 04/18/17 13:19 General appearance: Present: A&O X 3, obese, answers questions appropriately - Head Head exam: Present: atraumatic, normocephalic - Eye Eye exam: Present: PERRL, conjuntiva pink, sclera anicteric Pupils: Present: PERRL - Neck Neck exam general surgery: Present: supple, trachea midline. Absent: lymphadenopathy - Respiratory Respiratory exam: Present: CTAB. Absent: accessory muscle use, rales, rhonchi, wheezes - Cardiovascular Cardiovascular exam: Present: RRR, +S1, +S2. Absent: diastolic murmur, gallop, rubs, systolic murmur - GI/Abdominal GI/Abdominal exam: Present: normal bowel sounds, soft, no peritoneal signs. Absent: distended, tenderness - Extremities Exam Extremities exam: Present: warm, radial pulses palpable and symmetrical. Absent : calf tenderness, cyanotic, pedal edema - Neurological Exam Neurological exam: Present: CN II-XII intact, oriented X3, no focal deficits. Absent: pronater drift, facial droop, speech deficit - Skin Skin exam: Present: dry, intact Internal Medicine: Result - Labs CBC & Chem 7: 04/18/17 05:37 04/18/17 05:37 Labs: Short CBC 04/18/17 Range/Units 05:37 WBC 9.3 (4.3-11.1) K/mcL Hgb 9.4 L (11.5-15.4) g/dL Hct 29.0 L (35.3-44.9) % Plt Count 194 (140-400) K/mcL Neutrophils # 6.8 (1.6-8.9) K/mcL BMP 04/18/17 05:37 Sodium 133 L Potassium 3.7 Chloride 107 Carbon Dioxide 14 L BUN 46 H Creatinine 6.66 H Glucose 83 Calcium 7.6 L Liver Function 04/18/17 Range/Units 05:37 Total Bilirubin 0.4 (0.2-1.2) mg/dL AST 13 (5-34) Units/L ALT 16 (0-55) Units/L Alkaline Phosphatase 70 (38-126) Units/L Albumin 2.0 L (3.5-5.0) g/dL - ABG Interpretation ABG results: PT/INR, D-dimer PT 15.5 Seconds (9.4-12.1) H 04/14/17 14:10 Consult Discharge Plan - Plan Referrals: Misti Parsons, MACHINE FEEDER RAW STOCK [Primary Care Provider] -
[2017-04-18] MEDS: *HR* Promethazine 25 MG/ML VIAL IVP PRN (17:18)
[2017-04-19 04:27] LABS: Basophils # 0.1 K/mcL (0.0-0.2); Basophils % 0.5 %; Eosinophils # 0.5 K/mcL (0.0-0.6); Eosinophils % 5.1 %; Hematocrit 31.3 % (35.3-44.9); Hemoglobin 9.9 g/dL (11.5-15.4); Lymphocytes # 1.4 K/mcL (0.6-4.6); Lymphocytes % 15.6 %; Mean Corpuscular HGB Conc 31.6 g/dL (31.6-35.5); Mean Corpuscular Hemoglobin 27.3 pg (28.0-33.3); Mean Corpuscular Volume 86.5 fL (83.0-100.0); Mean Platelet Volume 10.9 fL (9.4-12.4); Monocytes # 1.1 K/mcL (0.0-1.3); Monocytes % 11.7 %; Neutrophils # 6.1 K/mcL (1.6-8.9); Platelet Count 227 K/mcL (140-400); Red Blood Count 3.62 M/mcL (3.82-4.97); Segmented Neutrophils % 66.1 %
[2017-04-19 04:38] LABS: Albumin 2.3 g/dL (3.5-5.0); Albumin/Globulin Ratio 0.5 (1.1-2.2); Bilirubin,Total 0.5 mg/dL (0.2-1.2); Calcium 8.6 mg/dL (8.6-10.8); Globulin 4.6 g/dL (2.4-3.5); Total Protein 6.9 g/dL (6.0-8.3)
[2017-04-19] MEDS: 0.9 % Sodium Chloride 1,000 ML IVC SCH ×5 (05:24→23:30)
[2017-04-19] MEDS: Piperacillin/Tazobactam 3.375 GM in 0.9 % Sodium Chloride Mini Bag 100 ML IVPB SCH ×2 (05:25→16:48)
[2017-04-19] MEDS: *HR* Heparin 5,000 UNIT/ML VIAL SQ SCH ×2 (05:26→16:47)
[2017-04-19] MEDS: Ondansetron 4 MG/2 ML VIAL IVP PRN ×2 (06:02→12:20)
[2017-04-19] MEDS: *HR* Morphine 2 MG/ML SYRINGE IVP PRN ×2 (06:02→23:23)
--- NOTE | 2017-04-19 16:30 | Nephrology Progress Note ---
Date of Encounter: 04/19/17 Time of Encounter: 16:29 - Assessment and Plan (1) Acute kidney injury Current Visit: Yes Status: Acute (2) Diarrhea Current Visit: Yes Status: Acute Qualifiers: Diarrhea type: unspecified type Qualified Code(s): R19.7 - Diarrhea, unspecified Subjective Principal diagnosis: BEVERLY Interval history: Patient seen. She has decreasing nausea and no emesis. She feels "swollen". Objective - Vital Signs Vital signs: Vital Signs Temp Pulse Resp BP Pulse Ox 04/19/17 11:34 98.0 F 67 16 161/95 95 04/19/17 08:18 97.9 F 70 15 151/93 94 04/19/17 05:30 98.2 F 73 14 163/98 98 04/19/17 00:19 98.9 F 75 13 146/90 95 04/18/17 18:29 98.7 F 75 12 153/86 Intake and Output 04/19/17 04/19/17 04/19/17 07:59 15:59 23:59 Intake Total 1000 / 1000 1100 / 1100 Output Total 900 / 900 Balance 100 / 100 1100 / 1100 Intake: IV Fluids 1000 / 1000 1100 / 1100 0.9 % Sodium Chloride 1,000 ML 1000 / 1000 1000 / 1000 @ 150 mls/hr IVC .Q6H40M [facility] Rx #:[id number] Zosyn 3.375 GM In 0.9 % Sodium 100 / 100 Chloride (Mini-Bag +) 100 ML @ 25 mls/hr IVPB Q12HR [facility] Rx#: [id number] Oral 0 / 0 Output: Urine 900 / 900 Other: Meal Breakfast Percent of Meal Consumed 0% Weight 106.2 kg Patient Weight 04/19/17 23:59 Weight 106.2 kg - General Appearance General appearance: Present: well-developed, well-nourished EENT: Present: ATNC Neck: Present: supple Respiratory: Present: clear Cardiology: Present: edema, regular rate Gastrointestinal: Present: obese Integumentary: Present: warm and dry Neurologic: Present: alert and oriented x3 Musculoskeletal: Present: no cyanosis Psychiatric: Present: mood/affect appropriate - Lab 04/19/17 04:08 04/19/17 04:08 Most recent lab results Calcium 8.6 mg/dL (8.6-10.8) 04/19/17 04:08 Phosphorus 2.5 mg/dL (2.3-4.7) 04/14/17 14:10 Magnesium 1.5 mg/dL (1.6-2.6) L 04/14/17 14:10 Urine Creatinine 40 mg/dL 04/17/17 14:20 Urine Sodium 47.0 mEq/L 04/17/17 14:20 Consult Discharge Plan - Plan Referrals: Misti Parsons, LUISA [Primary Care Provider] - (web request sent on 04/19/17)
[2017-04-19] MEDS: *HR* HYDROcodone/Acet 5/325 mg TABLET PO PRN ×2 (16:47→21:37)
[2017-04-19] MEDS: *HR* Promethazine 25 MG/ML VIAL IVP PRN (16:48)
--- NOTE | 2017-04-19 18:10 | Internal Med Progress Note ---
Date of Encounter: 04/19/17 Time of Encounter: 18:08 - Assessment and plan (1) Sepsis Current Visit: Yes Status: Acute Assessment and plan: White count has started coming down. Right thigh cellulitis and infection. On IV fluid and IV Zosyn and follow CBC and CMP. Qualifiers: Sepsis type: sepsis due to unspecified organism Qualified Code(s): A41.9 - Sepsis, unspecified organism (2) Acute kidney injury Current Visit: Yes Status: Acute Assessment and plan: Patient creatinine has jumped up to 3.5 while previously it was normal. She had a CT with contrast of right lower extremity in the ER and was started on IV vancomycin. Recently she was diagnosed with Impetigo by her patient financial representative. ASO titer/ Biopsy pending. She is complaining of nausea and vomiting with poor by mouth intake. I will increase her IV fluid 150 mL an hour recheck her creatinine. I will stop vancomycin and for now continue Zosyn. Discussed with Dr. Toribio. Suspect contrast nephropathy. However she has already started making urine. Ultrasound renal negative for obstruction Dr. Jessica Sanchez will decide tomorrow if patient needs dialysis. Her creatinine is worsening. . (3) Nausea and vomiting Current Visit: Yes Status: Acute Assessment and plan: Seems to have improved. Ultrasound showed previous cholecystectomy. Biliary system showed no dilatation and liver seems normal.. Qualifiers: Vomiting type: unspecified Vomiting Intractability: unspecified Qualified Code(s): R11.2 - Nausea with vomiting, unspecified (4) Cellulitis of right leg Current Visit: No Status: Acute Assessment and plan: CT/MRI did not show any abscesses. Continue IV Zosyn. WBC count has not started coming down and now 13,000. (5) Hypokalemia Current Visit: Yes Status: Acute Assessment and plan: Corrected (6) Diarrhea Current Visit: Yes Status: Acute Qualifiers: Diarrhea type: unspecified type Qualified Code(s): R19.7 - Diarrhea, unspecified (7) Diarrhea Current Visit: Yes Status: Acute Assessment and plan: Started yesterday. Send stool for C. difficile culture Qualifiers: Diarrhea type: unspecified type Qualified Code(s): R19.7 - Diarrhea, unspecified - Subjective Interval history: Admitted for right posterior thigh cellulitis and subcutaneous infection without any abscess and currently on IV Zosyn, afebrile with normal white count now, blood cultures are negative to this date urine culture showed Kocuria which is perhaps contamination. Also complaining of vague generalized abdominal pain nausea and vomiting. Ultrasound and electrolytes are negative. She is on Protonix. On admission she had contrast CT and later developed acute renal failure which typing office worker feels is due to contrast nephrotoxicity. We gave her IV fluid challenge and she does produce urine her creatinine is going up nephrology is considering possibility of hemodialysis. 04/18 overall seems better but is still complaining of abdominal pain. Since last night has developed diarrhea and we will request stool C. difficile as she is on broad-spectrum antibiotics. Abdominal pain has not changed since admission. No blood in the stools. 04/19 less nauseous. Stool negative for C. difficile. Worsening creatinine. Contrast nephropathy. - Constitutional Vitals: Temp Pulse Resp BP Pulse Ox 98.3 F 78 16 162/85 95 04/19/17 16:49 04/19/17 16:49 04/19/17 11:34 04/19/17 16:49 04/19/17 11:34 General appearance: Present: A&O X 3, obese, answers questions appropriately - Head Head exam: Present: atraumatic, normocephalic - Eye Eye exam: Present: PERRL, conjuntiva pink, sclera anicteric Pupils: Present: PERRL - Neck Neck exam general surgery: Present: supple, trachea midline. Absent: lymphadenopathy - Respiratory Respiratory exam: Present: CTAB. Absent: accessory muscle use, rales, rhonchi, wheezes - Cardiovascular Cardiovascular exam: Present: RRR, +S1, +S2. Absent: diastolic murmur, gallop, rubs, systolic murmur - GI/Abdominal GI/Abdominal exam: Present: normal bowel sounds, soft, no peritoneal signs. Absent: distended, tenderness - Extremities Exam Extremities exam: Present: warm, radial pulses palpable and symmetrical. Absent : calf tenderness, cyanotic, pedal edema Additional comments: Right posterior thigh cellulitis seems to have improved - Neurological Exam Neurological exam: Present: CN II-XII intact, oriented X3, no focal deficits. Absent: pronater drift, facial droop, speech deficit - Skin Skin exam: Present: dry, intact Internal Medicine: Result - Labs CBC & Chem 7: 04/19/17 04:08 04/19/17 04:08 Labs: Short CBC 04/19/17 Range/Units 04:08 WBC 9.3 (4.3-11.1) K/mcL Hgb 9.9 L (11.5-15.4) g/dL Hct 31.3 L (35.3-44.9) % Plt Count 227 (140-400) K/mcL Neutrophils # 6.1 (1.6-8.9) K/mcL BMP 04/19/17 04:08 Sodium 134 L Potassium 4.0 Chloride 108 Carbon Dioxide 16 L BUN 47 H Creatinine 7.33 H Glucose 88 Calcium 8.6 Liver Function 04/19/17 Range/Units 04:08 Total Bilirubin 0.5 (0.2-1.2) mg/dL AST 12 (5-34) Units/L ALT 17 (0-55) Units/L Alkaline Phosphatase 97 (38-126) Units/L Albumin 2.3 L (3.5-5.0) g/dL - ABG Interpretation ABG results: PT/INR, D-dimer PT 15.5 Seconds (9.4-12.1) H 04/14/17 14:10 Consult Discharge Plan - Plan Referrals: Misti Parsons, LUISA [Primary Care Provider] - 04/27/17 1:00 pm ()
[2017-04-20] MEDS: 0.9 % Sodium Chloride 1,000 ML IVC SCH (03:23)
[2017-04-20] MEDS: *HR* Morphine 2 MG/ML SYRINGE IVP PRN (03:34)
[2017-04-20] MEDS: Piperacillin/Tazobactam 3.375 GM in 0.9 % Sodium Chloride Mini Bag 100 ML IVPB SCH (06:07)
[2017-04-20] MEDS: *HR* Heparin 5,000 UNIT/ML VIAL SQ SCH ×2 (06:08→17:08)
[2017-04-20 06:10] LABS: Basophils % 0.3 %; Eosinophils # 0.5 K/mcL (0.0-0.6); Eosinophils % 5.1 %; Hematocrit 26.1 % (35.3-44.9); Hemoglobin 8.6 g/dL (11.5-15.4); Immature Granulocytes % 1.6 % (0-4); Lymphocytes # 1.3 K/mcL (0.6-4.6); Lymphocytes % 12.6 %; Mean Corpuscular Hemoglobin 27.7 pg (28.0-33.3); Mean Corpuscular Volume 84.2 fL (83.0-100.0); Monocytes # 1.2 K/mcL (0.0-1.3); Monocytes % 12.2 %; Neutrophils # 6.9 K/mcL (1.6-8.9); Platelet Count 211 K/mcL (140-400); Red Cell Distribution Width 14.2 % (11.5-14.5); Segmented Neutrophils % 68.2 %
[2017-04-20 06:28] LABS: Albumin/Globulin Ratio 0.4 (1.1-2.2); Bilirubin,Total 0.3 mg/dL (0.2-1.2); Globulin 4.3 g/dL (2.4-3.5); Potassium 3.9 mEq/L (3.5-4.5); Total Protein 6.2 g/dL (6.0-8.3)
[2017-04-20 06:29] LABS: Albumin 1.9 g/dL (3.5-5.0)
--- NOTE | 2017-04-20 10:10 | Internal Med Progress Note ---
<Filiberto Lee - Last Filed: 04/20/17 10:07> Date of Encounter: 04/20/17 Time of Encounter: 10:08 - Assessment and plan (1) Sepsis Current Visit: Yes Status: Resolved Assessment and plan: Secondary to impetigo, likely strep. Resolved at this time. Patient had presented with tachycardia, leukocytosis. Patient is currently on antibiotics. Continue to monitor. Qualifiers: Sepsis type: sepsis due to unspecified organism Qualified Code(s): A41.9 - Sepsis, unspecified organism (2) Bullous impetigo Current Visit: Yes Status: Acute Assessment and plan: Patient had biopsy done as outpatient that revealed lesions consistent with bullous impetigo. Culture results have been inconclusive however given her positive ASO titer is likely a strep species. Staff cannot be ruled out. Currently on antibiotics with vancomycin and Zosyn, antibiotic day 7. (3) Acute kidney injury Current Visit: Yes Status: Acute Assessment and plan: Likely related to vancomycin toxicity however patient also received IV contrast as well as recent strep infection with a positive ASO titer may be multifactorial. GFR stable today at 6. Patient is still having decent urine output. No hyperkalemia noted. No indications for acute dialysis at this time however will continually reassess. Nephrology is following and we appreciate their recommendations. (4) Diarrhea Current Visit: Yes Status: Acute Assessment and plan: Resolved. C. difficile negative. Continue to monitor. Qualifiers: Diarrhea type: unspecified type Qualified Code(s): R19.7 - Diarrhea, unspecified - Subjective Interval history: Patient seen and examined at bedside. She states that she feels swollen all over and this is causing her pain. She denies any new rashes. She reports that her urine output has decreased from her normal state but she is still making urine. She denies any fever, chills, shortness of breath. - Constitutional Vitals: Temp Pulse Resp BP Pulse Ox 98.2 F 72 17 163/97 97 04/20/17 08:07 04/20/17 08:07 04/20/17 08:07 04/20/17 08:07 04/20/17 08:07 General appearance: Present: A&O X 3, obese, answers questions appropriately - Respiratory Respiratory exam: Present: decreased breath sounds. Absent: rales, rhonchi, wheezes - Cardiovascular Cardiovascular exam: Present: RRR. Absent: gallop, rubs, systolic murmur - GI/Abdominal GI/Abdominal exam: Present: normal bowel sounds, soft. Absent: distended, tenderness - Extremities Exam Additional comments: 2+ pitting edema to the lower extremities and upper extremities bilaterally. - Neurological Exam Neurological exam: Present: alert, CN II-XII intact, oriented X3, no focal deficits - Skin Additional comments: Healing erythematous lesions on the posterior legs bilaterally. No bullous lesions noted. Internal Medicine: Result - Labs CBC & Chem 7: 04/20/17 05:26 04/20/17 05:26 Labs: Short CBC 04/20/17 Range/Units 05:26 WBC 10.1 (4.3-11.1) K/mcL Hgb 8.6 L (11.5-15.4) g/dL Hct 26.1 L (35.3-44.9) % Plt Count 211 (140-400) K/mcL Neutrophils # 6.9 (1.6-8.9) K/mcL BMP 04/20/17 05:26 Sodium 138 Potassium 3.9 Chloride 113 H Carbon Dioxide 15 L BUN 43 H Creatinine 7.68 H Glucose 94 Calcium 8.0 L Liver Function 04/20/17 Range/Units 05:26 Total Bilirubin 0.3 (0.2-1.2) mg/dL AST 11 (5-34) Units/L ALT 11 (0-55) Units/L Alkaline Phosphatase 95 (38-126) Units/L Albumin 1.9 L (3.5-5.0) g/dL - ABG Interpretation ABG results: PT/INR, D-dimer PT 15.5 Seconds (9.4-12.1) H 04/14/17 14:10 Consult Discharge Plan - Plan Referrals: Misti Parsons, SCRAP WORKER [Primary Care Provider] - 04/27/17 1:00 pm () <Estevan Foster - Last Filed: 04/20/17 15:18> Date of Encounter: 04/20/17 - Constitutional Vitals: Temp Pulse Resp BP Pulse Ox 98.0 F 96 17 177/99 95 04/20/17 10:58 04/20/17 10:58 04/20/17 10:58 04/20/17 10:58 04/20/17 10:58 Internal Medicine: Result - Labs CBC & Chem 7: 04/20/17 05:26 04/20/17 05:26 Labs: Short CBC 04/20/17 Range/Units 05:26 WBC 10.1 (4.3-11.1) K/mcL Hgb 8.6 L (11.5-15.4) g/dL Hct 26.1 L (35.3-44.9) % Plt Count 211 (140-400) K/mcL Neutrophils # 6.9 (1.6-8.9) K/mcL BMP 04/20/17 05:26 Sodium 138 Potassium 3.9 Chloride 113 H Carbon Dioxide 15 L BUN 43 H Creatinine 7.68 H Glucose 94 Calcium 8.0 L Liver Function 04/20/17 Range/Units 05:26 Total Bilirubin 0.3 (0.2-1.2) mg/dL AST 11 (5-34) Units/L ALT 11 (0-55) Units/L Alkaline Phosphatase 95 (38-126) Units/L Albumin 1.9 L (3.5-5.0) g/dL - ABG Interpretation ABG results: PT/INR, D-dimer PT 15.5 Seconds (9.4-12.1) H 04/14/17 14:10 - Attending Attestation I independently saw and examined this patient on 04/20/17, plan of care is as detailed in the resident physician's documentation 37 F with Sepsis/Bullous impetigo/Cellulitis/Non-oliguric BEVERLY from multiple factors Exam is unremarkable for edema, chest is clear, she has some weight gain from IVF hydration but is not in fluid overload at this time Agree with sodium bicarb drip , continue to monitor electrolytes, she may benefit from kidney biopsy if not improving. Monitor electrolytes closely Start Amlodipine for hypertension D?C Zosyn after 7 days of therapy Rest as in resident's documentation
[2017-04-20] MEDS ORDERED: Sodium Bicarbonate 150 MEQ in D5% in Water 1,000 ML IVC SCH (10:15)
[2017-04-20] MEDS: *HR* HYDROcodone/Acet 5/325 mg TABLET PO PRN ×2 (11:17→15:33)
[2017-04-20] MEDS: *HR* Promethazine 25 MG/ML VIAL IVP PRN ×2 (11:17→15:33)
[2017-04-20] MEDS ORDERED: Mag Hydrox/Al Hydrox/Simeth 30 ML UDC PO PRN (11:38)
[2017-04-20 17:54] LABS: Hepatitis B Surface Antigen Nonreactive (Nonreactive)
[2017-04-20] MEDS ORDERED: Piperacillin/Tazobactam 3.375 GM/200 ML BAG IVPB SCH (18:00)
[2017-04-20] MEDS: *HR* OxyCODONE Immed Rel 5 MG TABLET PO PRN (22:59)
[2017-04-21 04:32] LABS: Basophils % 0.2 %; Eosinophils # 0.6 K/mcL (0.0-0.6); Eosinophils % 6.3 %; Hematocrit 26.1 % (35.3-44.9); Hemoglobin 8.6 g/dL (11.5-15.4); Immature Granulocytes % 2.2 % (0-4); Lymphocytes # 1.3 K/mcL (0.6-4.6); Lymphocytes % 13.1 %; Mean Corpuscular Hemoglobin 27.7 pg (28.0-33.3); Mean Corpuscular Volume 84.2 fL (83.0-100.0); Mean Platelet Volume 10.7 fL (9.4-12.4); Monocytes % 10.1 %; Neutrophils # 6.8 K/mcL (1.6-8.9); Platelet Count 227 K/mcL (140-400); Red Cell Distribution Width 14.4 % (11.5-14.5); Segmented Neutrophils % 68.1 %
[2017-04-21 04:54] LABS: Calcium 8.2 mg/dL (8.6-10.8); Magnesium 1.7 mg/dL (1.6-2.6); Potassium 3.5 mEq/L (3.5-4.5)
[2017-04-21] MEDS: Ondansetron 4 MG/2 ML VIAL IVP PRN ×3 (05:28→18:04)
[2017-04-21] MEDS: *HR* Heparin 5,000 UNIT/ML VIAL SQ SCH ×2 (05:28→18:05)
[2017-04-21] MEDS: *HR* OxyCODONE Immed Rel 5 MG TABLET PO PRN (07:59)
[2017-04-21] MEDS: amLODIPine 5 MG TABLET PO SCH (08:00)
[2017-04-21] MEDS: *HR* Promethazine 25 MG/ML VIAL IVP PRN ×3 (08:01→21:05)
--- NOTE | 2017-04-21 10:46 | Nephrology Progress Note ---
Date of Encounter: 04/21/17 Time of Encounter: 10:42 - Assessment and Plan (1) Acute kidney injury Current Visit: Yes Status: Acute Patient's creatinine continues to climb. BUN slightly down. Patient with nausea that is unlikely uremia, but she has no other readily apparent etiology. She has metabolic acidosis despite giving sodium bicarbonate. Will initiate dialysis secondary to possibility of uremia, persistent metabolic acidosis and worsening renal failure. Placed consult for IR to place temp HD line and spoke with IR team. Adjust medications for renal function. Avoid nephrotoxins. Expanded serologic work-up ordered. If repeat urinalysis indicates persistent hematuria or worsening proteinuria she may need to get a renal biopsy. While this is likely ATN clinically one would have expected improvement given her age and lack of pre-existing kidney disease. I did speak with Dr. Foster regarding the overall plan. (2) Diarrhea Current Visit: Yes Status: Acute Patient complains of diarrhea and nausea. Will defer to primary team. (3) Anemia Current Visit: Yes Status: Acute Work-up initiated. Monitor for bleeding. Transfuse as needed. Qualifiers: Qualified Code(s): D64.9 - Anemia, unspecified (4) Acidosis Current Visit: Yes Status: Acute Will initiate dialysis. (5) Hypertension Current Visit: Yes Status: Acute Blood pressure uncontrolled. Initiating HD. Add amlodipine and monitor closely. Allow some permissive hypertension (sbp 130-150) secondary to BEVERLY. Avoid aggressive control of hypertension until renal function recovers. Qualifiers: Qualified Code(s): I10 - Essential (primary) hypertension Subjective Principal diagnosis: BEVERLY Interval history: Patient seen and evaluated. Her nausea and vomiting have returned. She wants to try dialysis. She still feels swollen. Objective - Vital Signs Vital signs: Vital Signs Temp Pulse Resp BP Pulse Ox 04/21/17 07:40 98.2 F 76 16 180/90 95 04/21/17 05:07 98.4 F 63 16 167/94 96 04/20/17 23:56 98.2 F 73 17 169/97 98 04/20/17 20:11 97.9 F 69 17 165/89 99 04/20/17 10:58 98.0 F 96 17 177/99 95 Intake and Output 04/20/17 04/21/17 04/21/17 23:59 07:59 15:59 Output Total 900 / 900 50 / 50 Balance -900 / -900 -50 / -50 Output: Urine 900 / 900 Emesis 50 / 50 Other: Weight 110.858 kg Patient Weight 04/21/17 23:59 Weight 110.858 kg - General Appearance General appearance: Present: well-developed, well-nourished, obese EENT: Present: ATNC Neck: Present: supple Respiratory: Present: clear Cardiology: Present: edema, regular rate, regular rhythm Gastrointestinal: Present: no tenderness Integumentary: Present: warm and dry Neurologic: Present: alert and oriented x3 Musculoskeletal: Present: no cyanosis Psychiatric: Present: mood/affect appropriate - Lab 04/21/17 04:00 04/21/17 04:00 Most recent lab results Calcium 8.2 mg/dL (8.6-10.8) L 04/21/17 04:00 Phosphorus 2.5 mg/dL (2.3-4.7) 04/14/17 14:10 Magnesium 1.7 mg/dL (1.6-2.6) 04/21/17 04:00 Urine Creatinine 40 mg/dL 04/17/17 14:20 Urine Sodium 47.0 mEq/L 04/17/17 14:20 Consult Discharge Plan - Plan Referrals: Misti Parsons CNP [Primary Care Provider] - 04/27/17 1:00 pm ()
[2017-04-21] MEDS ORDERED: *HR* Heparin 5,000 UNIT/ML VIAL ONE (11:30)
--- NOTE | 2017-04-21 11:59 | IR Procedure Note ---
Date of procedure: 04/21/17 Consent Obtained: Verbal consent Timeout: Correct patient and procedure verified, Correct site verified, Time out performed, Skin prep completed Indications: renal failure Procedure Performed: temp HDC Site/Technique: rt IJ Results/Findings: triple lumen, CXR to verify Estimated blood loss (cc): 2 Complications: None; Tolerated procedure well Post Procedure Treatment Plan: CXR
[2017-04-21 13:03] LABS: Hepatitis B Surface Antibody 16.69 mIU/mL
[2017-04-21 13:05] LABS: Albumin 2.1 g/dL (3.5-5.0)
[2017-04-21] MEDS ORDERED: *HR* Heparin 10,000 UNIT/10 ML VIAL IV PRN (13:15)
[2017-04-21] MEDS ORDERED: 0.9 % Sodium Chloride 250 ML IVC PRN (13:15)
[2017-04-21 15:33] LABS: Hepatitis A Antibody IgM Nonreactive (Nonreactive); Hepatitis B Core IgM Nonreactive (Nonreactive); Hepatitis B Surface Antigen Nonreactive (Nonreactive); Hepatitis C Virus Antibody Nonreactive (Nonreactive); Vitamin B12 1327 pg/mL (213-816)
[2017-04-21] MEDS: *HR* HYDROmorphone (PF) 1 MG/ML SYRINGE IVP PRN ×2 (15:37→19:20)
--- NOTE | 2017-04-21 15:58 | Event Note ---
Date of Encounter: 04/21/17 Time of Encounter: 10:20 I independently saw and examined this patient on 04/21/17, plan of care is as detailed in the resident physician's documentation 37 F with Sepsis/Bullous impetigo/Cellulitis/Non-oliguric BEVERLY from multiple factors, suspected nephritic syndrome. She complained of multiple episodes of nausea and vomiting this morning, Exam Uncontrolled blood pressure, other vitals stable. Chest is clear, trace pitting pedal. Abdomen is benign Labs and imaging reviewed; worsening renal function, refractory acidosis Continue amlodipine, add labetalol, hydralazine prn, for HD as scheduled by renal, may need renal biopsy, renal is following. Rheumatology work up. Repeat UA. Rest as in resident's documentation
--- NOTE | 2017-04-21 16:33 | Internal Med Progress Note ---
<Filiberto Lee - Last Filed: 04/21/17 16:31> Date of Encounter: 04/21/17 Time of Encounter: 16:31 - Assessment and plan (1) Acute kidney injury Current Visit: Yes Status: Acute Assessment and plan: Likely related to vancomycin toxicity however patient also received IV contrast as well as recent strep infection with a positive ASO titer may be multifactorial. GFR stable today at 6. Patient is still having decent urine output. No hyperkalemia noted. Given the patient's continued fluid overload nephrology will initiate dialysis today. (2) Sepsis Current Visit: Yes Status: Resolved Assessment and plan: Secondary to impetigo, likely strep. Resolved at this time. Patient had presented with tachycardia, leukocytosis. Patient is currently on antibiotics. Continue to monitor. Qualifiers: Sepsis type: sepsis due to unspecified organism Qualified Code(s): A41.9 - Sepsis, unspecified organism (3) Bullous impetigo Current Visit: Yes Status: Acute Assessment and plan: Patient had biopsy done as outpatient that revealed lesions consistent with bullous impetigo. Culture results have been inconclusive however given her positive ASO titer is likely a strep species. Staff cannot be ruled out. Currently on antibiotics with vancomycin and Zosyn, antibiotic day 8. (4) Diarrhea Current Visit: Yes Status: Acute Assessment and plan: Resolved. C. difficile negative. Continue to monitor. Qualifiers: Diarrhea type: unspecified type Qualified Code(s): R19.7 - Diarrhea, unspecified - Subjective Interval history: Patient seen and examined at bedside. She states that she feels swollen all over and this is worse from yesterday. She states she continues to have good urine output. She also reports nausea with several episodes of dry heaving. She denies any fever, chills, shortness of breath. - Constitutional Vitals: Temp Pulse Resp BP Pulse Ox 97.9 F 81 16 173/102 94 04/21/17 12:10 04/21/17 12:10 04/21/17 12:10 04/21/17 12:10 04/21/17 12:10 General appearance: Present: A&O X 3, obese, answers questions appropriately - Respiratory Respiratory exam: Present: CTAB. Absent: rales, rhonchi, wheezes - Cardiovascular Cardiovascular exam: Present: RRR. Absent: gallop, rubs, systolic murmur - GI/Abdominal GI/Abdominal exam: Present: normal bowel sounds, soft. Absent: distended, tenderness - Extremities Exam Extremities exam: Present: pedal edema (3+ upper and lower extremities), warm. Absent: tenderness - Neurological Exam Neurological exam: Present: alert, CN II-XII intact, oriented X3, no focal deficits Internal Medicine: Result - Labs CBC & Chem 7: 04/21/17 04:00 04/21/17 04:00 Labs: Short CBC 04/21/17 Range/Units 04:00 WBC 10.0 (4.3-11.1) K/mcL Hgb 8.6 L (11.5-15.4) g/dL Hct 26.1 L (35.3-44.9) % Plt Count 227 (140-400) K/mcL Neutrophils # 6.8 (1.6-8.9) K/mcL BMP 04/21/17 04/21/17 04:00 12:43 Sodium 139 Potassium 3.5 Chloride 111 H Carbon Dioxide 17 L BUN 37 H Creatinine 7.79 H Glucose 107 H Calcium 8.2 L 9.0 Liver Function 04/21/17 Range/Units 12:43 Albumin 2.1 L (3.5-5.0) g/dL - ABG Interpretation ABG results: PT/INR, D-dimer PT 15.5 Seconds (9.4-12.1) H 04/14/17 14:10 - Impressions Impressions Guidance Needle Placement Ultrasound 04/21/17 00:00 IMPRESSION: Successful ultrasound guided non-tunneled temporary hemodialysis catheter placement. D/ / 04/21/2017 15:25:48 Birdie Malone MD / Ashanti Rojo Interpreting Provider: Birdie Malone MD Insertion Non-Tunneled Catheter 04/21/17 00:00 IMPRESSION: Successful ultrasound guided non-tunneled temporary hemodialysis catheter placement. D/ / 04/21/2017 15:25:48 Birdie Malone MD / Ashanti Rojo Interpreting Provider: Birdie Malone MD Chest X-Ray 04/21/17 11:33 IMPRESSION: 1. Right dual-lumen CVC in place with the distal tip at the distal superior vena cava. No pneumothorax. 2. Central vascular prominence which may relate to mild interstitial edema. 3. New 0.9-1.1 cm left lung lateral subpleural nodular densities. In the acuity of the change this could represent acute infectious process. A follow-up chest radiograph in 3-7 days to re-evaluate is recommended. D/ / 04/21/2017 12:20:11 Everton Ugarte MD / Ashanti Rojo Interpreting Provider: Everton Ugarte MD Consult Discharge Plan - Plan Referrals: Misti Parsons CNP [Primary Care Provider] - 04/27/17 1:00 pm () <rCistianEstevan T - Last Filed: 04/21/17 16:59> Date of Encounter: 04/21/17 - Constitutional Vitals: Temp Pulse Resp BP Pulse Ox 97.9 F 81 16 173/102 94 04/21/17 12:10 04/21/17 12:10 04/21/17 12:10 04/21/17 12:10 04/21/17 12:10 Internal Medicine: Result - Labs CBC & Chem 7: 04/21/17 04:00 04/21/17 04:00 Labs: Short CBC 04/21/17 Range/Units 04:00 WBC 10.0 (4.3-11.1) K/mcL Hgb 8.6 L (11.5-15.4) g/dL Hct 26.1 L (35.3-44.9) % Plt Count 227 (140-400) K/mcL Neutrophils # 6.8 (1.6-8.9) K/mcL BMP 04/21/17 04/21/17 04:00 12:43 Sodium 139 Potassium 3.5 Chloride 111 H Carbon Dioxide 17 L BUN 37 H Creatinine 7.79 H Glucose 107 H Calcium 8.2 L 9.0 Liver Function 04/21/17 Range/Units 12:43 Albumin 2.1 L (3.5-5.0) g/dL - ABG Interpretation ABG results: PT/INR, D-dimer PT 15.5 Seconds (9.4-12.1) H 04/14/17 14:10 - Impressions Impressions Guidance Needle Placement Ultrasound 04/21/17 00:00 IMPRESSION: Successful ultrasound guided non-tunneled temporary hemodialysis catheter placement. D/ / 04/21/2017 15:25:48 Birdie Malone MD / Ashanti Rojo Interpreting Provider: Birdie Malone MD Insertion Non-Tunneled Catheter 04/21/17 00:00 IMPRESSION: Successful ultrasound guided non-tunneled temporary hemodialysis catheter placement. D/ / 04/21/2017 15:25:48 Birdie Malone MD / Ashanti Rojo Interpreting Provider: Birdie Malone MD Chest X-Ray 04/21/17 11:33 IMPRESSION: 1. Right dual-lumen CVC in place with the distal tip at the distal superior vena cava. No pneumothorax. 2. Central vascular prominence which may relate to mild interstitial edema. 3. New 0.9-1.1 cm left lung lateral subpleural nodular densities. In the acuity of the change this could represent acute infectious process. A follow-up chest radiograph in 3-7 days to re-evaluate is recommended. D/ / 04/21/2017 12:20:11 Everton Ugarte MD / Ashanti Rojo Interpreting Provider: Everton Ugarte MD - Attending Attestation See my event note for today 04/21/17
[2017-04-22] MEDS: Acetaminophen 325 MG TABLET PO PRN (00:01)
[2017-04-22 00:58] LABS: Bacteria,Urine None Seen per hpf (None-Few); Bilirubin,Urine Negative (Negative); Blood,Urine Trace (Negative); Clarity,Urine Clear (Clear); Color,Urine Yellow (Yellow); Glucose,Urine (UA) Normal (Normal); Hyaline Casts,Urine None Seen per lpf (None-Few); Ketones,Urine 15 mg/dL (Negative); Leukocyte Esterase,Urine Negative (Negative); Nitrite,Urine Negative (Negative); PH,Urine 6.5 pH Units (5.0-8.0); Protein,Urine Trace mg/dL (Neg-Trace); Specific Gravity,Urine 1.014 (1.010-1.025); Squamous Epithelial Cell,Urine Many per lpf (None-Few); Urobilinogen,Urine Normal (Normal)
[2017-04-22] MEDS: *HR* HYDROmorphone (PF) 1 MG/ML SYRINGE IVP PRN ×3 (02:13→20:50)
[2017-04-22] MEDS: *HR* Promethazine 25 MG/ML VIAL IVP PRN ×3 (03:14→13:25)
[2017-04-22 04:57] LABS: Basophils % 0.4 %; Eosinophils # 0.2 K/mcL (0.0-0.6); Eosinophils % 1.9 %; Hematocrit 26.2 % (35.3-44.9); Hemoglobin 8.8 g/dL (11.5-15.4); Immature Granulocytes % 4.1 % (0-4); Lymphocytes # 1.4 K/mcL (0.6-4.6); Lymphocytes % 14.2 %; Mean Corpuscular HGB Conc 33.6 g/dL (31.6-35.5); Mean Corpuscular Hemoglobin 27.8 pg (28.0-33.3); Mean Corpuscular Volume 82.9 fL (83.0-100.0); Mean Platelet Volume 10.2 fL (9.4-12.4); Monocytes # 0.8 K/mcL (0.0-1.3); Monocytes % 7.8 %; Neutrophils # 6.9 K/mcL (1.6-8.9); Platelet Count 268 K/mcL (140-400); Red Blood Count 3.16 M/mcL (3.82-4.97); Red Cell Distribution Width 14.3 % (11.5-14.5); Segmented Neutrophils % 71.6 %
[2017-04-22 04:58] LABS: Calcium 8.8 mg/dL (8.6-10.8); Magnesium 1.7 mg/dL (1.6-2.6); Potassium 3.4 mEq/L (3.5-4.5)
[2017-04-22] MEDS: *HR* Heparin 5,000 UNIT/ML VIAL SQ SCH ×2 (06:24→17:00)
[2017-04-22] MEDS: Ondansetron 4 MG/2 ML VIAL IVP PRN ×4 (06:24→20:51)
[2017-04-22] MEDS ORDERED: *HR* HYDROmorphone (PF) 1 MG/ML SYRINGE IVP PRN (07:28)
[2017-04-22] MEDS: amLODIPine 5 MG TABLET PO SCH (08:22)
[2017-04-22 09:43] LABS: Rheumatoid Factor < 15 IU/mL (0-29)
--- NOTE | 2017-04-22 09:55 | Nephrology Progress Note ---
Date of Encounter: 04/22/17 Time of Encounter: 09:53 - Assessment and Plan (1) Acute kidney injury Current Visit: Yes Status: Acute BUN down to 27, Scr down to 5.55 and GFR up to 9 after first dialysis treatment yesterday. Urine shows trace of protein and trace of blood Will hold on dialysis today and see if Scr goes up; if Scr goes up will proceed with renal biopsy. Good UOP 1200ml Patient needs up out of bed TID. (2) Anemia Current Visit: Yes Status: Acute Hgb 8.8 Iron low at 27 tsat 12 Transferrin 150 Qualifiers: Anemia type: unspecified type Qualified Code(s): D64.9 - Anemia, unspecified (3) Sepsis Current Visit: Yes Status: Resolved Continue antibiotics per primary team Qualifiers: Sepsis type: sepsis due to unspecified organism Qualified Code(s): A41.9 - Sepsis, unspecified organism Subjective Principal diagnosis: BEVERLY Interval history: Patient seen and examined. c/o nausea and asking for Phenergan. States she does not feel well at all today and has increased swelling in her hands. Objective - Vital Signs Vital signs: Vital Signs Temp Pulse Resp BP Pulse Ox 04/22/17 07:34 98.2 F 87 17 161/81 94 04/22/17 04:02 98.3 F 87 16 160/81 93 04/21/17 23:55 99 F 102 16 184/108 92 04/21/17 20:26 98.5 F 94 17 179/101 91 04/21/17 17:47 97.4 F L 18 188/105 04/21/17 17:30 182/97 04/21/17 17:15 192/108 04/21/17 17:00 189/101 04/21/17 16:45 177/103 04/21/17 16:30 182/101 04/21/17 16:15 176/104 04/21/17 16:00 163/101 04/21/17 15:45 163/98 04/21/17 15:30 97.8 F 18 170/103 04/21/17 12:10 97.9 F 81 16 173/102 94 Intake and Output 04/21/17 04/22/17 04/22/17 23:59 07:59 15:59 Intake Total 300 / 300 100 / 100 Output Total 600 / 600 900 / 900 350 / 350 Balance -600 / -600 -600 / -600 -250 / -250 Intake: Oral 300 / 300 100 / 100 Output: Urine 0 / 0 900 / 900 Emesis 350 / 350 Total Dialysis (HD) Output 600 / 600 Other: # Voids 1 Weight 112.3 kg Hemodialysis Net Fluid Removed 0 (mL) Patient Weight 04/22/17 23:59 Weight 112.3 kg - General Appearance General appearance: Present: obese EENT: Present: ATNC, mucous membranes moist, hearing intact, vision intact Neck: Present: supple Respiratory: Present: clear Cardiology: Present: edema, normal S1, normal S2 Dialysis Vascular Access: Venous Catheter Gastrointestinal: Present: no tenderness, no guarding Integumentary: Present: warm and dry Neurologic: Present: alert and oriented x3 Psychiatric: Present: mood/affect appropriate, cooperative - Lab 04/22/17 04:30 04/22/17 04:30 Most recent lab results Calcium 8.8 mg/dL (8.6-10.8) 04/22/17 04:30 Phosphorus 2.5 mg/dL (2.3-4.7) 04/14/17 14:10 Magnesium 1.7 mg/dL (1.6-2.6) 04/22/17 04:30 Urine Creatinine 40 mg/dL 04/17/17 14:20 Urine Sodium 47.0 mEq/L 04/17/17 14:20 Consult Discharge Plan - Plan Referrals: Misti Parsons CNP [Primary Care Provider] - 04/27/17 1:00 pm ()
[2017-04-22] MEDS ORDERED: Ondansetron 4 MG/2 ML VIAL IVP SCH (12:00)
[2017-04-22 13:57] LABS: Protein/Creatinine Ratio,Urine 0.21 mg/mg (0-0.20)
--- NOTE | 2017-04-22 15:49 | Internal Med Progress Note ---
<Filiberto Lee - Last Filed: 04/22/17 15:46> Date of Encounter: 04/22/17 Time of Encounter: 15:46 - Assessment and plan (1) Acute kidney injury Current Visit: Yes Status: Acute Assessment and plan: Likely related to vancomycin toxicity however patient also received IV contrast as well as recent strep infection with a positive ASO titer may be multifactorial. GFR improved today at 9, status post dialysis session yesterday. Patient is still having good urine output. No hyperkalemia noted. Per nephrology will hold dialysis today to evaluate evidence of renal recovery tomorrow. (2) Sepsis Current Visit: Yes Status: Resolved Assessment and plan: Secondary to impetigo, likely strep. Resolved at this time. Patient had presented with tachycardia, leukocytosis. Patient completed 8 days of antibiotics. Continue to monitor. Qualifiers: Sepsis type: sepsis due to unspecified organism Qualified Code(s): A41.9 - Sepsis, unspecified organism (3) Bullous impetigo Current Visit: Yes Status: Acute Assessment and plan: Patient had biopsy done as outpatient that revealed lesions consistent with bullous impetigo. Culture results have been inconclusive however given her positive ASO titer is likely a strep species. Staph cannot be ruled out. Completed 8 days of antibiotics. (4) Diarrhea Current Visit: Yes Status: Acute Assessment and plan: Resolved. C. difficile negative. Continue to monitor. Qualifiers: Diarrhea type: unspecified type Qualified Code(s): R19.7 - Diarrhea, unspecified (5) Nausea and vomiting Current Visit: Yes Status: Acute Assessment and plan: Patient has persistent nausea and vomiting. She does feel slightly better with Phenergan, will switch to Reglan to see if she has better relief. Possibly related to uremia but this persists after dialysis yesterday. We will continue to monitor. If not improved consider GI consult Qualifiers: Vomiting type: unspecified Vomiting Intractability: unspecified Qualified Code(s): R11.2 - Nausea with vomiting, unspecified - Subjective Interval history: Patient seen and examined at bedside. She states that she feels swollen all over and this is causing her discomfort. She states she continues to have good urine output. She also reports nausea with several episodes of vomiting that has persisted from yesterday. She denies any fever, chills, shortness of breath. - Constitutional Vitals: Temp Pulse Resp BP Pulse Ox 98.4 F 93 17 164/90 93 04/22/17 10:43 04/22/17 10:43 04/22/17 10:43 04/22/17 10:43 04/22/17 10:43 General appearance: Present: A&O X 3, obese, answers questions appropriately - Respiratory Respiratory exam: Present: CTAB. Absent: rales, rhonchi, wheezes - Cardiovascular Cardiovascular exam: Present: RRR. Absent: gallop, rubs, systolic murmur - GI/Abdominal GI/Abdominal exam: Present: normal bowel sounds, soft. Absent: distended, tenderness - Extremities Exam Extremities exam: Present: pedal edema (2+ bilaterally upper and lower extremities), tenderness (Diffuse), warm - Neurological Exam Neurological exam: Present: alert, CN II-XII intact, oriented X3, no focal deficits Internal Medicine: Result - Labs CBC & Chem 7: 04/22/17 04:30 04/22/17 04:30 Labs: Short CBC 04/22/17 Range/Units 04:30 WBC 9.6 (4.3-11.1) K/mcL Hgb 8.8 L (11.5-15.4) g/dL Hct 26.2 L (35.3-44.9) % Plt Count 268 (140-400) K/mcL Neutrophils # 6.9 (1.6-8.9) K/mcL BMP 04/22/17 04:30 Sodium 140 Potassium 3.4 L Chloride 109 Carbon Dioxide 21 BUN 27 H D Creatinine 5.55 H Glucose 87 Calcium 8.8 Urine 04/22/17 Range/Units 00:24 Urine Color Yellow (Yellow) Urine Clarity Clear (Clear) Urine pH 6.5 (5.0-8.0) pH Units Ur Specific [place] 1.014 (1.010-1.025) Urine Protein Trace (Neg-Trace) mg/dL Urine Glucose (UA) Normal (Normal) mg/dL - ABG Interpretation ABG results: PT/INR, D-dimer PT 15.5 Seconds (9.4-12.1) H 04/14/17 14:10 Consult Discharge Plan - Plan Referrals: Misti Parsons, LUISA [Primary Care Provider] - 04/27/17 1:00 pm () <Estevan Foster - Tk Filed: 04/22/17 16:14> Date of Encounter: 04/22/17 - Constitutional Vitals: Temp Pulse Resp BP Pulse Ox 98.4 F 93 17 164/90 93 04/22/17 10:43 04/22/17 10:43 04/22/17 10:43 04/22/17 10:43 04/22/17 10:43 Internal Medicine: Result - Labs CBC & Chem 7: 04/22/17 04:30 04/22/17 04:30 Labs: Short CBC 04/22/17 Range/Units 04:30 WBC 9.6 (4.3-11.1) K/mcL Hgb 8.8 L (11.5-15.4) g/dL Hct 26.2 L (35.3-44.9) % Plt Count 268 (140-400) K/mcL Neutrophils # 6.9 (1.6-8.9) K/mcL BMP 04/22/17 04:30 Sodium 140 Potassium 3.4 L Chloride 109 Carbon Dioxide 21 BUN 27 H D Creatinine 5.55 H Glucose 87 Calcium 8.8 Urine 04/22/17 Range/Units 00:24 Urine Color Yellow (Yellow) Urine Clarity Clear (Clear) Urine pH 6.5 (5.0-8.0) pH Units Ur Specific [place] 1.014 (1.010-1.025) Urine Protein Trace (Neg-Trace) mg/dL Urine Glucose (UA) Normal (Normal) mg/dL - ABG Interpretation ABG results: PT/INR, D-dimer PT 15.5 Seconds (9.4-12.1) H 04/14/17 14:10 - Attending Attestation I independently saw and examined this patient on 04/22/17, plan of care is as detailed in the resident physician's documentation 37 F with Sepsis/Bullous impetigo/Cellulitis/Non-oliguric BEVERLY from multiple factors, suspected nephritic syndrome. She complained of multiple episodes of nausea and vomiting this morning, Exam Blood pressure is improving, other vitals stable. Chest is clear, trace pitting pedal edema, edema of the upper extremities and her hands. Abdomen is benign Labs and imaging reviewed; BUN/Cr improving Continue current management, renal eval appreciated Rest as in resident's documentation
[2017-04-22] MEDS: Metoclopramide 10 MG/2 ML VIAL IVP PRN (17:00)
[2017-04-23] MEDS: Metoclopramide 10 MG/2 ML VIAL IVP PRN ×4 (02:24→22:52)
[2017-04-23] MEDS: *HR* HYDROmorphone (PF) 1 MG/ML SYRINGE IVP PRN ×4 (04:06→22:58)
[2017-04-23] MEDS: Ondansetron 4 MG/2 ML VIAL IVP PRN ×3 (04:07→19:59)
[2017-04-23 04:14] LABS: Basophils # 0.1 K/mcL (0.0-0.2); Basophils % 0.6 %; Eosinophils # 0.5 K/mcL (0.0-0.6); Hematocrit 26.1 % (35.3-44.9); Hemoglobin 8.5 g/dL (11.5-15.4); Immature Granulocytes % 2.7 % (0-4); Lymphocytes # 1.5 K/mcL (0.6-4.6); Lymphocytes % 13.2 %; Mean Corpuscular HGB Conc 32.6 g/dL (31.6-35.5); Mean Corpuscular Hemoglobin 27.7 pg (28.0-33.3); Mean Platelet Volume 10.5 fL (9.4-12.4); Monocytes # 1.1 K/mcL (0.0-1.3); Monocytes % 9.6 %; Neutrophils # 7.9 K/mcL (1.6-8.9); Platelet Count 302 K/mcL (140-400); Red Blood Count 3.07 M/mcL (3.82-4.97); Red Cell Distribution Width 14.6 % (11.5-14.5); Segmented Neutrophils % 69.9 %
[2017-04-23 04:18] LABS: Calcium 8.3 mg/dL (8.6-10.8); Magnesium 1.7 mg/dL (1.6-2.6); Potassium 3.3 mEq/L (3.5-4.5)
[2017-04-23] MEDS: *HR* Heparin 5,000 UNIT/ML VIAL SQ SCH ×2 (06:56→17:25)
[2017-04-23] MEDS: amLODIPine 5 MG TABLET PO SCH (08:23)
[2017-04-23 08:48] LABS: Complement Component 3 154 mg/dL (88-201); Complement Component 4 50 mg/dL (10-40)
--- NOTE | 2017-04-23 09:04 | Internal Med Progress Note ---
<Filiberto Lee - Last Filed: 04/23/17 09:01> Date of Encounter: 04/23/17 Time of Encounter: 09:01 - Assessment and plan (1) Acute kidney injury Current Visit: Yes Status: Acute Assessment and plan: Likely related to vancomycin toxicity however patient also received IV contrast as well as recent strep infection with a positive ASO titer as well as NSAID use so BEVERLY is likely multifactorial. GFR stable today at 9, status post dialysis session 2 days ago. Patient is still having excellent urine output. No hyperkalemia noted and patient is actually hypokalemic which has been replaced. Per nephrology, will continue to hold off on dialysis and monitor renal function.. (2) Sepsis Current Visit: Yes Status: Resolved Assessment and plan: Secondary to impetigo, likely strep. Resolved at this time. Patient had presented with tachycardia, leukocytosis. Patient completed 8 days of antibiotics. Continue to monitor. Qualifiers: Sepsis type: sepsis due to unspecified organism Qualified Code(s): A41.9 - Sepsis, unspecified organism (3) Bullous impetigo Current Visit: Yes Status: Acute Assessment and plan: Patient had biopsy done as outpatient that revealed lesions consistent with bullous impetigo. Culture results have been inconclusive however given her positive ASO titer is likely a strep species. Staph cannot be ruled out. Completed 8 days of antibiotics. (4) Diarrhea Current Visit: Yes Status: Acute Assessment and plan: Resolved. C. difficile negative. Continue to monitor. Qualifiers: Diarrhea type: unspecified type Qualified Code(s): R19.7 - Diarrhea, unspecified (5) Nausea and vomiting Current Visit: Yes Status: Acute Assessment and plan: Patient has persistent nausea and vomiting. Patient seemed to do better with Reglan, will continue with Reglan and Zofran. Encouraged patient to take slow by mouth intake of soft mild foods. Unlikely related to uremia at this time given that her BUN is down to 26 and her symptoms persist. We will continue to monitor. If not improved consider GI consult Qualifiers: Vomiting type: unspecified Vomiting Intractability: unspecified Qualified Code(s): R11.2 - Nausea with vomiting, unspecified - Subjective Interval history: Patient seen and examined at bedside. She states that she feels swollen all over but this is improved from yesterday. She states she continues to have good urine output. She also reports nausea with several episodes of vomiting that has persisted from yesterday, the medication seems to be helping slightly. She denies any fever, chills, shortness of breath. - Constitutional Vitals: Temp Pulse Resp BP Pulse Ox 98.6 F 90 17 175/93 92 04/23/17 07:07 04/23/17 07:07 04/23/17 07:07 04/23/17 07:07 04/23/17 07:07 General appearance: Present: A&O X 3, obese, answers questions appropriately - Respiratory Respiratory exam: Present: CTAB. Absent: rales, rhonchi, wheezes - Cardiovascular Cardiovascular exam: Present: RRR. Absent: gallop, rubs, systolic murmur - GI/Abdominal GI/Abdominal exam: Present: normal bowel sounds, soft. Absent: distended, tenderness - Extremities Exam Extremities exam: Present: pedal edema (2+ pitting edema to the upper and lower extremity bilaterally, improved from yesterday), tenderness (Diffuse, mild), warm - Neurological Exam Neurological exam: Present: alert, CN II-XII intact, oriented X3, no focal deficits Internal Medicine: Result - Labs CBC & Chem 7: 04/23/17 04:00 04/23/17 04:00 Labs: Short CBC 04/23/17 Range/Units 04:00 WBC 11.3 H (4.3-11.1) K/mcL Hgb 8.5 L (11.5-15.4) g/dL Hct 26.1 L (35.3-44.9) % Plt Count 302 (140-400) K/mcL Neutrophils # 7.9 (1.6-8.9) K/mcL BMP 04/23/17 04:00 Sodium 139 Potassium 3.3 L Chloride 107 Carbon Dioxide 21 BUN 26 H Creatinine 5.39 H Glucose 93 Calcium 8.3 L - ABG Interpretation ABG results: PT/INR, D-dimer PT 15.5 Seconds (9.4-12.1) H 04/14/17 14:10 Consult Discharge Plan - Plan Referrals: Misti Parsons, POWDER OPERATOR [Primary Care Provider] - 04/27/17 1:00 pm () <Estevan Foster - Last Filed: 04/23/17 12:44> Date of Encounter: 04/23/17 - Constitutional Vitals: Temp Pulse Resp BP Pulse Ox 98.5 F 97 17 160/88 91 04/23/17 11:11 04/23/17 11:11 04/23/17 11:11 04/23/17 11:11 04/23/17 11:11 Internal Medicine: Result - Labs CBC & Chem 7: 04/23/17 04:00 04/23/17 04:00 Labs: Short CBC 04/23/17 Range/Units 04:00 WBC 11.3 H (4.3-11.1) K/mcL Hgb 8.5 L (11.5-15.4) g/dL Hct 26.1 L (35.3-44.9) % Plt Count 302 (140-400) K/mcL Neutrophils # 7.9 (1.6-8.9) K/mcL BMP 04/23/17 04:00 Sodium 139 Potassium 3.3 L Chloride 107 Carbon Dioxide 21 BUN 26 H Creatinine 5.39 H Glucose 93 Calcium 8.3 L - ABG Interpretation ABG results: PT/INR, D-dimer PT 15.5 Seconds (9.4-12.1) H 04/14/17 14:10 - Attending Attestation I independently saw and examined this patient on 04/23/17, plan of care is as detailed in the resident physician's documentation 37 F with Sepsis/Bullous impetigo/Cellulitis/Non-oliguric BEVERLY from multiple factors, ATN/NSAIDS/suspected nephritic syndrome. She complained of multiple episodes of nausea and vomiting this morning, but states this has improved from yesterday She clinically looks improved Exam Blood pressure is improving but still elevated, other vitals stable. Chest is clear, trace pitting pedal edema, edema of the upper extremities and her hands is imprving , with evidence of skin wrinkling. Neuro exam is normal. No cyanosis. Abdomen is benign Labs and imaging reviewed; BUN/Cr stable as compared to 04/22. K low. new mild leukocytosis Continue current management, renal eval appreciated . Add Ranitidine for GERD. Increase labetalol for better blood pressure control, start weaning off opiates Rest as in resident's documentation
--- NOTE | 2017-04-23 09:16 | Nephrology Progress Note ---
Date of Encounter: 04/23/17 Time of Encounter: 08:30 - Assessment and Plan (1) Acute kidney injury Current Visit: Yes Status: Acute Consistent with ATN from multifactorial insults including XS OTC NSAIDs, infections (cellulitis), IV contrast and Vanco. Slowly improving and not needing SALES INSPECTOR today. If she continues to slowly trend better, then I would recommend removing the temporary HD catheter from the RIJ region. Discussed with the Hospitalist team and the floor RN was present, as was the pt's mom. (2) Anemia Current Visit: Yes Status: Acute Qualifiers: Anemia type: unspecified type Qualified Code(s): D64.9 - Anemia, unspecified (3) Hypertension Current Visit: Yes Status: Acute Qualifiers: Qualified Code(s): I10 - Essential (primary) hypertension (4) Hypokalemia Current Visit: Yes Status: Acute (5) Nausea and vomiting Current Visit: Yes Status: Acute She does not appear uremic, so I doubt that she is having N/V from the BEVERLY, which is trending better and with excellent UOP. Qualifiers: Vomiting type: unspecified Vomiting Intractability: unspecified Qualified Code(s): R11.2 - Nausea with vomiting, unspecified (6) NSAID long-term use Current Visit: Yes Status: Acute She affirmed having a prolonged and high daily exposure to OTC NSAIDs. She may be at risk for PUD, which could be contributing to her N/V. Subjective Principal diagnosis: BEVERLY Interval history: Pt was s/e with her mother in the room. The pt said she has onoging Nausea but it may be as bad as occurred after her first treatment of HD, she reported. She reported that she regularly took NSAID meds not only for her chronic back pain but also for the discomfort of her skin rash. Objective - Vital Signs Vital signs: Vital Signs Temp Pulse Resp BP Pulse Ox 04/23/17 07:07 98.6 F 90 17 175/93 92 04/23/17 04:12 99.6 F 97 18 177/79 90 04/22/17 18:46 98.8 F 96 15 156/93 93 04/22/17 16:12 99.2 F 98 17 161/80 92 04/22/17 10:43 98.4 F 93 17 164/90 93 Intake and Output 04/22/17 04/23/17 04/23/17 23:59 07:59 15:59 Intake Total 120 / 120 0 / 0 Output Total 650 / 650 0 / 0 Balance -530 / -530 0 / 0 Intake: Oral 120 / 120 0 / 0 Output: Urine 650 / 650 0 / 0 Other: Weight 112.2 kg Patient Weight 04/23/17 23:59 Weight 112.2 kg - General Appearance General appearance: Present: well-developed, well-nourished, appears started age , obese EENT: Present: ATNC, PERRL, mucous membranes moist Neck: Present: supple Respiratory: Present: clear Cardiology: Present: edema (nonpitting ankle swelling but his was more consistent with adiposity bilaterally), regular rate, regular rhythm, normal S1 , normal S2 Dialysis Vascular Access: Venous Catheter (RIJ temporary HD cather) Gastrointestinal: Present: normoactive bowel sounds, no guarding, obese Integumentary: Present: warm and dry Neurologic: Present: no focal deficit, no asterixis, alert and oriented x3 Musculoskeletal: Present: no cyanosis, no clubbing Psychiatric: Present: mood/affect appropriate, cooperative - Lab 04/23/17 04:00 04/23/17 04:00 Most recent lab results Calcium 8.3 mg/dL (8.6-10.8) L 04/23/17 04:00 Phosphorus 2.5 mg/dL (2.3-4.7) 04/14/17 14:10 Magnesium 1.7 mg/dL (1.6-2.6) 04/23/17 04:00 Urine Creatinine 73 mg/dL 04/22/17 12:35 Urine Sodium 47.0 mEq/L 04/17/17 14:20 Urine Total Protein 15 mg/dL (1-14) H 04/22/17 12:35 Consult Discharge Plan - Plan Referrals: Misti Parsons, TERRESTRIAL ECOLOGIST [Primary Care Provider] - 04/27/17 1:00 pm ()
[2017-04-24] MEDS: *HR* HYDROcodone/Acet 5/325 mg TABLET PO PRN ×2 (02:31→08:06)
[2017-04-24 05:12] LABS: Basophils # 0.1 K/mcL (0.0-0.2); Basophils % 0.4 %; Eosinophils # 0.5 K/mcL (0.0-0.6); Eosinophils % 3.9 %; Hematocrit 25.6 % (35.3-44.9); Hemoglobin 8.7 g/dL (11.5-15.4); Immature Granulocytes % 2.6 % (0-4); Lymphocytes # 1.6 K/mcL (0.6-4.6); Lymphocytes % 13.4 %; Mean Corpuscular Hemoglobin 28.2 pg (28.0-33.3); Mean Corpuscular Volume 83.1 fL (83.0-100.0); Mean Platelet Volume 9.8 fL (9.4-12.4); Monocytes # 1.1 K/mcL (0.0-1.3); Monocytes % 8.8 %; Neutrophils # 8.6 K/mcL (1.6-8.9); Platelet Count 277 K/mcL (140-400); Red Blood Count 3.08 M/mcL (3.82-4.97); Red Cell Distribution Width 14.6 % (11.5-14.5); Segmented Neutrophils % 70.9 %
[2017-04-24] MEDS: *HR* Heparin 5,000 UNIT/ML VIAL SQ SCH ×2 (05:17→17:23)
[2017-04-24] MEDS: Famotidine 20 MG TABLET PO SCH (05:17)
[2017-04-24 05:32] LABS: Calcium 8.3 mg/dL (8.6-10.8); Magnesium 1.5 mg/dL (1.6-2.6); Potassium 3.3 mEq/L (3.5-4.5)
[2017-04-24] MEDS: amLODIPine 5 MG TABLET PO SCH (07:52)
[2017-04-24] MEDS: Prochlorperazine 10 MG/2 ML VIAL IVP PRN (07:53)
[2017-04-24] MEDS: *HR* HYDROmorphone (PF) 1 MG/ML SYRINGE IVP PRN (10:07)
--- NOTE | 2017-04-24 10:46 | Nephrology Progress Note ---
Date of Encounter: 04/24/17 Time of Encounter: 08:40 - Assessment and Plan (1) Acute kidney injury Current Visit: Yes Status: Acute Consistent with ATN from multifactorial insults including XS OTC NSAIDs, infections (cellulitis), IV contrast and Vanco. Continuing to demonstrate renal recovery and is non-oliguric, without hyperkalemia, uremic confusion or other ongoing indications for HD. So will have the Rt IJ temporary HD catheter removed today to help lower the risks for CLABSI. I discussed the plan for the pt, floor RN and the hospitalist team. (2) Anemia Current Visit: Yes Status: Acute Qualifiers: Anemia type: unspecified type Qualified Code(s): D64.9 - Anemia, unspecified (3) Hypertension Current Visit: Yes Status: Acute (4) Hypokalemia Current Visit: Yes Status: Acute Stable, so will add a one time dose of KCl. Suspect his may even be from perhaps the polyuric phase of renal recovery. (5) Nausea and vomiting Current Visit: Yes Status: Acute She does not appear uremic, so I doubt that she is having N/V from the BEVERLY, which is trending better and with excellent UOP. Qualifiers: Vomiting type: unspecified Vomiting Intractability: unspecified Qualified Code(s): R11.2 - Nausea with vomiting, unspecified (6) NSAID long-term use Current Visit: Yes Status: Acute She affirmed having a prolonged and high daily exposure to OTC NSAIDs. She may be at risk for PUD, which could be contributing to her N/V. Subjective Principal diagnosis: BEVERLY Interval history: Pt was s/e with her mother in the room. The pt said she has onoging Nausea but it may be as bad as occurred after her first treatment of HD, she reported. She reported that she regularly took NSAID meds not only for her chronic back pain but also for the discomfort of her skin rash. Objective - Vital Signs Vital signs: Vital Signs Temp Pulse Resp BP Pulse Ox 04/24/17 07:05 98.7 F 91 15 162/94 94 04/24/17 03:51 99.5 F 99 16 158/86 93 04/24/17 00:41 98.8 F 99 16 164/93 94 04/23/17 19:41 99 F 103 16 157/91 92 04/23/17 17:37 169/89 04/23/17 16:35 99.0 F 99 18 161/104 94 04/23/17 11:11 98.5 F 97 17 160/88 91 Intake and Output 04/23/17 04/24/17 04/24/17 23:59 07:59 15:59 Intake Total 0 / 0 Output Total 1800 / 1800 800 / 800 Balance -1800 / -1800 -800 / -800 0 / 0 Intake: Oral 0 / 0 Output: Urine 1800 / 1800 800 / 800 Other: Meal Breakfast Percent of Meal Consumed 0% # Voids 1 1 Weight 115 kg Patient Weight 04/24/17 23:59 Weight 115 kg - Lab 04/24/17 04:44 04/24/17 04:44 Most recent lab results Calcium 8.3 mg/dL (8.6-10.8) L 04/24/17 04:44 Phosphorus 2.5 mg/dL (2.3-4.7) 04/14/17 14:10 Magnesium 1.5 mg/dL (1.6-2.6) L 04/24/17 04:44 Urine Creatinine 73 mg/dL 04/22/17 12:35 Urine Sodium 47.0 mEq/L 04/17/17 14:20 Urine Total Protein 15 mg/dL (1-14) H 04/22/17 12:35 Consult Discharge Plan - Plan Referrals: Misti Parsons CNP [Primary Care Provider] - 04/27/17 1:00 pm ()
--- NOTE | 2017-04-24 10:53 | Internal Med Progress Note ---
Date of Encounter: 04/24/17 Time of Encounter: 10:15 - Assessment and plan (1) Leukocytosis Current Visit: Yes Status: Acute Assessment and plan: Continue to monitor Etiology unclear at this time Patient is afebrile, no known source of infection at this time Qualifiers: Leukocytosis type: unspecified Qualified Code(s): D72.829 - Elevated white blood cell count, unspecified (2) DVT prophylaxis Current Visit: Yes Status: Acute Assessment and plan: Heparin SQ (3) Cellulitis of right leg Current Visit: Yes Status: Acute Assessment and plan: CT/MRI did not show any abscesses. Resolved (4) Acute kidney injury Current Visit: Yes Status: Acute Assessment and plan: Likely related to vancomycin toxicity however patient also received IV contrast as well as recent strep infection with a positive ASO titer as well as NSAID use so BEVERLY is likely multifactorial. GFR stable today at 9, status post dialysis session 3 days ago. Patient is still having excellent urine output. No hyperkalemia noted and patient is actually hypokalemic which has been replaced. Per nephrology, will continue to hold off on dialysis and monitor renal function.. Renal function improved today Possibly d/c Shiley catheter (5) Metabolic acidosis, normal anion gap (NAG) Current Visit: Yes Status: Acute Assessment and plan: Stable (6) Anemia Current Visit: Yes Status: Acute Assessment and plan: Possibly due to renal disease, or and iron deficiency Iron levels low on results Consider starting po iron supplements Qualifiers: Anemia type: unspecified type Qualified Code(s): D64.9 - Anemia, unspecified (7) Hypertension Current Visit: Yes Status: Chronic Assessment and plan: Possibly due to renal disease, Qualifiers: Hypertension type: essential hypertension Qualified Code(s): I10 - Essential (primary) hypertension (8) Nausea and vomiting Current Visit: Yes Status: Acute Assessment and plan: Improving, continue to monitor Qualifiers: Vomiting type: unspecified Vomiting Intractability: unspecified Qualified Code(s): R11.2 - Nausea with vomiting, unspecified (9) Hypomagnesemia Current Visit: Yes Status: Acute Assessment and plan: Replaced IV continue to monitor - Subjective Interval history: 37 F with Sepsis/Bullous impetigo/Cellulitis/Non-oliguric BEVERLY from multiple factors, ATN/NSAIDS/suspected nephritic syndrome. Seen and evaluated at bedside with mother She denies new complains Renal function continues to improve Slight worsening of leukocytosis patient denies urinary symptoms, she has no cough, no diarrhea, no new skin lesions - Constitutional Vitals: Temp Pulse Resp BP Pulse Ox 98.7 F 91 15 162/94 94 04/24/17 07:05 04/24/17 07:05 04/24/17 07:05 04/24/17 07:05 04/24/17 07:05 General appearance: Present: A&O X 3, morbidly obese, no acute distress, answers questions appropriately - Head Head exam: Present: atraumatic, normocephalic - Eye Eye exam: Present: PERRL, conjuntiva pink, sclera anicteric Pupils: Present: PERRL - Neck Neck exam general surgery: Present: supple, trachea midline. Absent: lymphadenopathy - Respiratory Respiratory exam: Present: CTAB. Absent: accessory muscle use, rales, rhonchi, wheezes - Cardiovascular Cardiovascular exam: Present: RRR, +S1, +S2. Absent: diastolic murmur, gallop, rubs, systolic murmur - GI/Abdominal GI/Abdominal exam: Present: normal bowel sounds, soft, no peritoneal signs. Absent: distended, tenderness - Extremities Exam Extremities exam: Present: warm, radial pulses palpable and symmetrical. Absent : calf tenderness, cyanotic, pedal edema - Neurological Exam Neurological exam: Present: alert, CN II-XII intact, oriented X3, no focal deficits. Absent: pronater drift, facial droop, speech deficit - Skin Skin exam: Present: dry, intact Internal Medicine: Result - Labs CBC & Chem 7: 04/24/17 04:44 04/24/17 04:44 Labs: Short CBC 04/24/17 Range/Units 04:44 WBC 12.1 H (4.3-11.1) K/mcL Hgb 8.7 L (11.5-15.4) g/dL Hct 25.6 L (35.3-44.9) % Plt Count 277 (140-400) K/mcL Neutrophils # 8.6 (1.6-8.9) K/mcL BMP 04/24/17 04:44 Sodium 139 Potassium 3.3 L Chloride 106 Carbon Dioxide 17 L BUN 24 H Creatinine 4.94 H Glucose 85 Calcium 8.3 L - ABG Interpretation ABG results: PT/INR, D-dimer PT 15.5 Seconds (9.4-12.1) H 04/14/17 14:10 Consult Discharge Plan - Plan Referrals: Misti Parsons CNP [Primary Care Provider] - 04/27/17 1:00 pm ()
[2017-04-24] MEDS: Ondansetron 4 MG/2 ML VIAL IVP PRN (17:23)
[2017-04-24 18:49] LABS: Alpha 2 Globulin (PEP) 1.01 g/dL (0.48-1.05); Beta Globulin (PEP) 0.81 g/dL (0.48-1.10)
[2017-04-25] MEDS: *HR* HYDROcodone/Acet 5/325 mg TABLET PO PRN (00:25)
[2017-04-25 05:05] LABS: Basophils # 0.1 K/mcL (0.0-0.2); Basophils % 0.4 %; Eosinophils # 0.5 K/mcL (0.0-0.6); Eosinophils % 3.3 %; Hematocrit 26.5 % (35.3-44.9); Hemoglobin 8.7 g/dL (11.5-15.4); Immature Granulocytes % 1.9 % (0-4); Lymphocytes # 2.1 K/mcL (0.6-4.6); Mean Corpuscular HGB Conc 32.8 g/dL (31.6-35.5); Mean Corpuscular Hemoglobin 27.3 pg (28.0-33.3); Mean Corpuscular Volume 83.1 fL (83.0-100.0); Mean Platelet Volume 9.8 fL (9.4-12.4); Monocytes % 6.9 %; Platelet Count 262 K/mcL (140-400); Red Blood Count 3.19 M/mcL (3.82-4.97); Red Cell Distribution Width 14.4 % (11.5-14.5); Segmented Neutrophils % 72.5 %
[2017-04-25 05:13] LABS: Calcium 8.4 mg/dL (8.6-10.8); Potassium 3.3 mEq/L (3.5-4.5)
[2017-04-25] MEDS: Famotidine 20 MG TABLET PO SCH (06:22)
[2017-04-25] MEDS: *HR* Heparin 5,000 UNIT/ML VIAL SQ SCH ×2 (06:23→17:25)
[2017-04-25] MEDS: Prochlorperazine 10 MG/2 ML VIAL IVP PRN ×2 (08:56→15:45)
[2017-04-25] MEDS: amLODIPine 5 MG TABLET PO SCH (08:56)
--- NOTE | 2017-04-25 10:43 | Internal Med Progress Note ---
Date of Encounter: 04/25/17 Time of Encounter: 10:42 - Assessment and plan (1) Sepsis Current Visit: Yes Status: Resolved Assessment and plan: Initially admitted for sepsis due to impetigo/cellulitis This has resolved On 04/24, she started having worsening leukocytosis today 04/25, she has a low grade fever 100.1, as well as tachycardia and worsening leukocytosis of 13 Hb is stable Work up revealed Pneumonia-patient denies chest symptoms We will start on Cefepime and Vanco-renally dosed Pharmacy to dose Deescalate with blood culture Follow blood and urine cultures Continue to monitor Qualifiers: Sepsis type: sepsis due to unspecified organism Qualified Code(s): A41.9 - Sepsis, unspecified organism (2) Pneumonia Current Visit: Yes Status: Acute Assessment and plan: As above Send sputum culture when patient is able to make sputum Qualifiers: Pneumonia type: due to unspecified organism Laterality: bilateral Lung location: unspecified part of lung Qualified Code(s): J18.9 - Pneumonia, unspecified organism (3) DVT prophylaxis Current Visit: Yes Status: Acute Assessment and plan: Heparin SQ (4) Cellulitis of right leg Current Visit: Yes Status: Resolved Assessment and plan: CT/MRI did not show any abscesses. Resolved (5) Acute kidney injury Current Visit: Yes Status: Acute Assessment and plan: Likely related to vancomycin toxicity however patient also received IV contrast as well as recent strep infection with a positive ASO titer as well as NSAID use so BEVERLY is likely multifactorial. GFR stable today at 9, status post dialysis session 3 days ago. Patient is still having excellent urine output. No hyperkalemia noted and patient is actually hypokalemic which has been replaced. Per nephrology, will continue to hold off on dialysis and monitor renal function.. Renal function improved today 04/24 Catheter removed Renal function is improving (6) Metabolic acidosis, normal anion gap (NAG) Current Visit: Yes Status: Acute Assessment and plan: Stable (7) Anemia Current Visit: Yes Status: Acute Assessment and plan: Possibly due to renal disease, or and iron deficiency Iron levels low on results Consider starting po iron supplements Qualifiers: Anemia type: unspecified type Qualified Code(s): D64.9 - Anemia, unspecified (8) Hypertension Current Visit: Yes Status: Chronic Assessment and plan: Possibly due to renal disease, continue current meds Qualifiers: Hypertension type: essential hypertension Qualified Code(s): I10 - Essential (primary) hypertension (9) Nausea and vomiting Current Visit: Yes Status: Resolved Assessment and plan: Resolved, continue Zofran/Phenergan/Ranitidine Qualifiers: Vomiting type: unspecified Vomiting Intractability: unspecified Qualified Code(s): R11.2 - Nausea with vomiting, unspecified (10) Hypomagnesemia Current Visit: Yes Status: Acute Assessment and plan: Replaced IV continue to monitor - Subjective Interval history: 37 F with Sepsis/Bullous impetigo/Cellulitis/Non-oliguric BEVERLY from multiple factors, ATN/NSAIDS/suspected nephritic syndrome. Seen and evaluated at bedside Renal function continues to improve Slight worsening of leukocytosis, as well as tachycardia and T of 100.1 this morning patient denies urinary symptoms, she has no cough, no diarrhea, no new skin lesions I have ordered a full sepsis work up-UA with culture, Blood culture, CXR, abdomen and pelvis CT CXR and CT with bilat PNA L>R. CXR on admission was normal - Constitutional Vitals: Temp Pulse Resp BP Pulse Ox 100.1 F H 100 22 166/96 93 04/25/17 06:28 04/25/17 06:28 04/25/17 06:28 04/25/17 06:28 04/25/17 06:28 General appearance: Present: A&O X 3, morbidly obese, no acute distress, answers questions appropriately - Head Head exam: Present: atraumatic, normocephalic - Eye Eye exam: Present: PERRL, conjuntiva pink, sclera anicteric Pupils: Present: PERRL - Neck Neck exam general surgery: Present: supple, trachea midline. Absent: lymphadenopathy - Respiratory Respiratory exam: Present: decreased breath sounds (at the bases bilaterally), CTAB. Absent: accessory muscle use, rales, rhonchi, wheezes - Cardiovascular Cardiovascular exam: Present: RRR, +S1, +S2. Absent: diastolic murmur, gallop, rubs, systolic murmur - GI/Abdominal GI/Abdominal exam: Present: normal bowel sounds, soft, no peritoneal signs. Absent: distended, tenderness - Extremities Exam Extremities exam: Present: warm, radial pulses palpable and symmetrical. Absent : calf tenderness, cyanotic, pedal edema - Neurological Exam Neurological exam: Present: alert, CN II-XII intact, oriented X3, no focal deficits. Absent: pronater drift, facial droop, speech deficit - Skin Skin exam: Present: dry, intact Internal Medicine: Result - Labs CBC & Chem 7: 04/25/17 04:47 04/25/17 04:47 Labs: Short CBC 04/25/17 Range/Units 04:47 WBC 13.8 H (4.3-11.1) K/mcL Hgb 8.7 L (11.5-15.4) g/dL Hct 26.5 L (35.3-44.9) % Plt Count 262 (140-400) K/mcL Neutrophils # 10.0 H (1.6-8.9) K/mcL BMP 04/25/17 04:47 Sodium 138 Potassium 3.3 L Chloride 107 Carbon Dioxide 22 BUN 23 H Creatinine 4.57 H Glucose 89 Calcium 8.4 L - ABG Interpretation ABG results: PT/INR, D-dimer PT 15.5 Seconds (9.4-12.1) H 04/14/17 14:10 Consult Discharge Plan - Plan Referrals: Misti Parsons CNP [Primary Care Provider] - 04/27/17 1:00 pm ()
--- NOTE | 2017-04-25 10:48 | Internal Med Progress Note ---
Date of Encounter: 04/25/17 Time of Encounter: 10:48 - Assessment and plan (1) Leukocytosis Current Visit: Yes Status: Acute Qualifiers: Leukocytosis type: unspecified Qualified Code(s): D72.829 - Elevated white blood cell count, unspecified (2) DVT prophylaxis Current Visit: Yes Status: Acute (3) Cellulitis of right leg Current Visit: Yes Status: Acute (4) Acute kidney injury Current Visit: Yes Status: Acute (5) Metabolic acidosis, normal anion gap (NAG) Current Visit: Yes Status: Acute (6) Anemia Current Visit: Yes Status: Acute Qualifiers: Anemia type: unspecified type Qualified Code(s): D64.9 - Anemia, unspecified (7) Hypertension Current Visit: Yes Status: Chronic Qualifiers: Hypertension type: essential hypertension Qualified Code(s): I10 - Essential (primary) hypertension (8) Nausea and vomiting Current Visit: Yes Status: Acute Qualifiers: Vomiting type: unspecified Vomiting Intractability: unspecified Qualified Code(s): R11.2 - Nausea with vomiting, unspecified (9) Hypomagnesemia Current Visit: Yes Status: Acute - Subjective Interval history: 37 F with Sepsis/Bullous impetigo/Cellulitis/Non-oliguric BEVERLY from multiple factors, ATN/NSAIDS/suspected nephritic syndrome. Seen and evaluated at bedside with mother She denies new complains Renal function continues to improve Slight worsening of leukocytosis, as well as tachycardia and T of 100.1 this morning patient denies urinary symptoms, she has no cough, no diarrhea, no new skin lesions I have ordered a full sepsis work up-UA with culture, Blood culture, CXR, abdomen and pelvis CT - Constitutional Vitals: Temp Pulse Resp BP Pulse Ox 100.1 F H 100 22 166/96 93 04/25/17 06:28 04/25/17 06:28 04/25/17 06:28 04/25/17 06:28 04/25/17 06:28 General appearance: Present: A&O X 3, morbidly obese, no acute distress, answers questions appropriately Internal Medicine: Result - Labs CBC & Chem 7: 04/25/17 04:47 04/25/17 04:47 Labs: Short CBC 04/25/17 Range/Units 04:47 WBC 13.8 H (4.3-11.1) K/mcL Hgb 8.7 L (11.5-15.4) g/dL Hct 26.5 L (35.3-44.9) % Plt Count 262 (140-400) K/mcL Neutrophils # 10.0 H (1.6-8.9) K/mcL BMP 04/25/17 04:47 Sodium 138 Potassium 3.3 L Chloride 107 Carbon Dioxide 22 BUN 23 H Creatinine 4.57 H Glucose 89 Calcium 8.4 L - ABG Interpretation ABG results: PT/INR, D-dimer PT 15.5 Seconds (9.4-12.1) H 04/14/17 14:10 Consult Discharge Plan - Plan Referrals: Misti Parsons CNP [Primary Care Provider] - 04/27/17 1:00 pm ()
[2017-04-25 11:26] LABS: Bilirubin,Urine Negative (Negative); Blood,Urine Large (Negative); Clarity,Urine Clear (Clear); Color,Urine Yellow (Yellow); Glucose,Urine (UA) Normal (Normal); Ketones,Urine Trace mg/dL (Negative); Leukocyte Esterase,Urine Negative (Negative); Nitrite,Urine Negative (Negative); PH,Urine 6.5 pH Units (5.0-8.0); Protein,Urine 30 mg/dL (Neg-Trace); Specific Gravity,Urine 1.011 (1.010-1.025); Urobilinogen,Urine Normal (Normal)
[2017-04-25 11:28] LABS: Bacteria,Urine None Seen per hpf (None-Few); Hyaline Casts,Urine None Seen per lpf (None-Few); RBC,Urine TNTC per hpf (0-3); Squamous Epithelial Cell,Urine Many per lpf (None-Few)
[2017-04-25] MEDS: *HR* HYDROmorphone (PF) 1 MG/ML SYRINGE IVP PRN ×2 (11:37→20:54)
[2017-04-25] MEDS ORDERED: Cefepime HCl 1,000 MG in Water for inj. (sterile) 10 ML IVP SCH (13:00)
[2017-04-25] MEDS ORDERED: Vancomycin 1,500 MG in D5% in Water 250 ML IVPB ONE (13:00)
[2017-04-25] MEDS: Acetaminophen 325 MG TABLET PO PRN (20:54)
[2017-04-26] MEDS: *HR* HYDROmorphone (PF) 1 MG/ML SYRINGE IVP PRN ×2 (02:50→07:55)
[2017-04-26] MEDS: *HR* HYDROcodone/Acet 5/325 mg TABLET PO PRN ×2 (04:28→16:20)
[2017-04-26] MEDS: *HR* Heparin 5,000 UNIT/ML VIAL SQ SCH ×2 (04:30→16:32)
[2017-04-26 04:53] LABS: Basophils % 0.3 %; Eosinophils # 0.5 K/mcL (0.0-0.6); Eosinophils % 3.4 %; Hematocrit 26.4 % (35.3-44.9); Hemoglobin 8.6 g/dL (11.5-15.4); Immature Granulocytes % 1.1 % (0-4); Lymphocytes # 1.6 K/mcL (0.6-4.6); Lymphocytes % 10.9 %; Mean Corpuscular HGB Conc 32.6 g/dL (31.6-35.5); Mean Corpuscular Hemoglobin 27.1 pg (28.0-33.3); Mean Corpuscular Volume 83.3 fL (83.0-100.0); Mean Platelet Volume 9.8 fL (9.4-12.4); Monocytes # 1.2 K/mcL (0.0-1.3); Monocytes % 8.3 %; Platelet Count 260 K/mcL (140-400); Red Blood Count 3.17 M/mcL (3.82-4.97); Red Cell Distribution Width 14.5 % (11.5-14.5)
[2017-04-26 05:01] LABS: Calcium 8.5 mg/dL (8.6-10.8); Potassium 3.1 mEq/L (3.5-4.5)
[2017-04-26 05:20] LABS: Vancomycin,Random 24.3 mcg/mL
[2017-04-26] MEDS: Famotidine 20 MG TABLET PO SCH (06:15)
[2017-04-26] MEDS: amLODIPine 5 MG TABLET PO SCH (07:51)
[2017-04-26] MEDS: Prochlorperazine 10 MG/2 ML VIAL IVP PRN (08:04)
[2017-04-26 08:31] LABS: Myeloperoxidase Ab 1 AU/mL (0-19); Serine Protease-3 Antibody 0 AU/mL (0-19)
[2017-04-26 08:32] LABS: ANA IgG by ELISA NONE DETECTED (None Detected)
[2017-04-26 08:49] LABS: IFE Reflexed NOT DONE
--- NOTE | 2017-04-26 09:33 | Internal Med Progress Note ---
<Filiberto Lee - Last Filed: 04/26/17 09:53> Date of Encounter: 04/26/17 Time of Encounter: 09:31 - Assessment and plan (1) Acute kidney injury Current Visit: Yes Status: Acute Assessment and plan: Likely related to vancomycin toxicity however patient also received IV contrast as well as recent strep infection with a positive ASO titer as well as NSAID use so BEVERLY is likely multifactorial. GFR continues to improve, and 12 today. Patient had 1 dialysis session last Wednesday. Patient is still having excellent urine output. No hyperkalemia noted and patient is actually hypokalemic which has been replaced. Per nephrology, will continue to hold off on dialysis and monitor renal function. Temporary HD line has been removed. (2) Sepsis Current Visit: Yes Status: Resolved Assessment and plan: Initially admitted for sepsis due to impetigo/cellulitis, This has resolved. Unfortunately the patient has had worsening leukocytosis and fever over the weekend. Chest x-ray was indicative of bilateral pneumonia. Patient was started on broad-spectrum antibiotics with cefepime and vancomycin. White count slightly worse today and patient had a fever overnight last night. Continue antibiotic therapy, if worsening will adjust antibiotics. Repeat blood cultures pending. Qualifiers: Sepsis type: sepsis due to unspecified organism Qualified Code(s): A41.9 - Sepsis, unspecified organism (3) Pneumonia Current Visit: Yes Status: Acute Assessment and plan: As above. Send sputum culture when patient is able to make sputum Qualifiers: Pneumonia type: due to unspecified organism Laterality: bilateral Lung location: unspecified part of lung Qualified Code(s): J18.9 - Pneumonia, unspecified organism (4) Bullous impetigo Current Visit: Yes Status: Acute Assessment and plan: Patient had biopsy done as outpatient that revealed lesions consistent with bullous impetigo. Culture results have been inconclusive however given her positive ASO titer is likely a strep species. Staph cannot be ruled out. Completed 8 days of antibiotics. (5) Diarrhea Current Visit: Yes Status: Acute Assessment and plan: Resolved. C. difficile negative. Continue to monitor. Qualifiers: Diarrhea type: unspecified type Qualified Code(s): R19.7 - Diarrhea, unspecified (6) Nausea and vomiting Current Visit: Yes Status: Resolved Assessment and plan: Improved, changed to Compazine over the weekend. Qualifiers: Vomiting type: unspecified Vomiting Intractability: unspecified Qualified Code(s): R11.2 - Nausea with vomiting, unspecified (7) Left knee pain Current Visit: Yes Status: Acute Assessment and plan: Patient states that this is new over the weekend. Denies trauma or falls. She reports that it feels swollen however on physical examination do not appreciate any swelling, erythema, effusion. Will obtain x-ray. Qualifiers: Chronicity: acute Qualified Code(s): M25.562 - Pain in left knee - Subjective Interval history: Patient seen and examined at bedside. Today her main complaint is left knee pain. She states that it hurt over the weekend. She reports that it feels swollen. She denies fever, chills, chest pain, cough, shortness of breath. She reports good urine output. - Constitutional Vitals: Temp Pulse Resp BP Pulse Ox 98.3 F 92 16 161/89 90 04/26/17 07:41 04/26/17 07:41 04/26/17 07:41 04/26/17 07:41 04/26/17 07:41 General appearance: Present: A&O X 3, morbidly obese, no acute distress, answers questions appropriately - Respiratory Respiratory exam: Present: decreased breath sounds. Absent: rales, respiratory distress, rhonchi, wheezes, tachypnea - Cardiovascular Cardiovascular exam: Present: RRR. Absent: gallop, rubs, systolic murmur - GI/Abdominal GI/Abdominal exam: Present: soft. Absent: distended, normal bowel sounds, tenderness - Extremities Exam Extremities exam: Present: pedal edema (Trace), warm. Absent: tenderness Additional comments: Left knee is tender to touch. No erythema, swelling, effusion noted. - Neurological Exam Neurological exam: Present: alert, CN II-XII intact, oriented X3, no focal deficits Internal Medicine: Result - Labs CBC & Chem 7: 04/26/17 04:35 04/26/17 04:35 Labs: Short CBC 04/26/17 Range/Units 04:35 WBC 14.5 H (4.3-11.1) K/mcL Hgb 8.6 L (11.5-15.4) g/dL Hct 26.4 L (35.3-44.9) % Plt Count 260 (140-400) K/mcL Neutrophils # 11.0 H (1.6-8.9) K/mcL BMP 04/26/17 04:35 Sodium 141 Potassium 3.1 L Chloride 106 Carbon Dioxide 24 BUN 21 H Creatinine 4.27 H Glucose 99 Calcium 8.5 L Urine 04/25/17 Range/Units 11:05 Urine Color Yellow (Yellow) Urine Clarity Clear (Clear) Urine pH 6.5 (5.0-8.0) pH Units Ur Specific [place] 1.011 (1.010-1.025) Urine Protein 30 H (Neg-Trace) mg/dL Urine Glucose (UA) Normal (Normal) mg/dL - ABG Interpretation ABG results: PT/INR, D-dimer PT 15.5 Seconds (9.4-12.1) H 04/14/17 14:10 - Impressions Impressions Chest X-Ray 04/25/17 07:47 IMPRESSION: Patchy bilateral airspace disease, more extensive on the left, likely representing pneumonia. Follow-up to complete radiographic resolution is recommended. D/ / Mary Yancey Cha, MD / Mary Yancey Cha, MD Interpreting Provider: Mary Yancey Cha, MD Abdomen/Pelvis CT 04/25/17 10:30 IMPRESSION: 1. No evidence of abdominal abscess. 2. Bilateral pleural effusions are present and there is patchy consolidation in both lower lobes. Correlate with any underlying symptoms of pneumonia or perhaps pulmonary edema. 3. There is mild mesenteric edema and fluid in the dependent portion of the pelvis. Along with body wall edema in the bilateral flanks, this may indicate volume overload status. D/ / Prosper Tillman MD / Prosper Tillman MD Interpreting Provider: Prosper Tillman MD Consult Discharge Plan - Plan Referrals: Misti Parsons CNP [Primary Care Provider] - 04/27/17 1:00 pm () <Estevan Foster - Last Filed: 04/26/17 12:56> Date of Encounter: 04/26/17 - Assessment and plan (1) Sepsis Current Visit: Yes Status: Resolved Qualifiers: Sepsis type: sepsis due to unspecified organism Qualified Code(s): A41.9 - Sepsis, unspecified organism (2) Pneumonia Current Visit: Yes Status: Acute Qualifiers: Pneumonia type: due to unspecified organism Laterality: bilateral Lung location: unspecified part of lung Qualified Code(s): J18.9 - Pneumonia, unspecified organism (3) DVT prophylaxis Current Visit: Yes Status: Acute (4) Cellulitis of right leg Current Visit: Yes Status: Resolved (5) Acute kidney injury Current Visit: Yes Status: Acute (6) Metabolic acidosis, normal anion gap (NAG) Current Visit: Yes Status: Acute (7) Anemia Current Visit: Yes Status: Acute Qualifiers: Anemia type: unspecified type Qualified Code(s): D64.9 - Anemia, unspecified (8) Hypertension Current Visit: Yes Status: Chronic Qualifiers: Hypertension type: essential hypertension Qualified Code(s): I10 - Essential (primary) hypertension (9) Nausea and vomiting Current Visit: Yes Status: Resolved Qualifiers: Vomiting type: unspecified Vomiting Intractability: unspecified Qualified Code(s): R11.2 - Nausea with vomiting, unspecified (10) Hypomagnesemia Current Visit: Yes Status: Acute - Constitutional Vitals: Temp Pulse Resp BP Pulse Ox 98.5 F 97 17 156/89 92 04/26/17 11:33 04/26/17 11:33 04/26/17 11:33 04/26/17 11:33 04/26/17 11:33 Internal Medicine: Result - Labs CBC & Chem 7: 04/26/17 04:35 04/26/17 04:35 Labs: Short CBC 04/26/17 Range/Units 04:35 WBC 14.5 H (4.3-11.1) K/mcL Hgb 8.6 L (11.5-15.4) g/dL Hct 26.4 L (35.3-44.9) % Plt Count 260 (140-400) K/mcL Neutrophils # 11.0 H (1.6-8.9) K/mcL BMP 04/26/17 04:35 Sodium 141 Potassium 3.1 L Chloride 106 Carbon Dioxide 24 BUN 21 H Creatinine 4.27 H Glucose 99 Calcium 8.5 L - ABG Interpretation ABG results: PT/INR, D-dimer PT 15.5 Seconds (9.4-12.1) H 04/14/17 14:10 - Impressions Impressions Knee X-Ray 04/26/17 09:11 IMPRESSION: Sequela of remote MCL injury. No acute fracture, dislocation or joint effusion. D/ / Adam Orantes MD / Adam Orantes MD Interpreting Provider: Adam Orantes MD - Attending Attestation I independently saw and examined this patient on 04/26/17, plan of care is as detailed in the resident physician's documentation 37 F with Sepsis/Bullous impetigo/Cellulitis/Non-oliguric BEVERLY from multiple factors, ATN/NSAIDS/suspected nephritic syndrome. Her initial sepsis due to cellulitis resolved, she developed new sepsis with source being HCAP 04/25/17. Overnight, she had an episode of low grade fever-100.2, leukocytosis is worsening She complained of L knee pain, no joint effusion, no erythema, no indwelling Exam Blood pressure is improving but still elevated, other vitals stable. Chest is clear, trace pitting pedal edema, Neuro exam is normal. No cyanosis. Abdomen is benign. L knee is not swollen, noballotable effusion, no erythema, ROM is normal. Labs and imaging reviewed; BUN/Cr continues to improve, leukocytosis increasing , Hb and PLT stable, L knee X-ray is normal Continue Vanco and Cefepime, follow final cultures. Replace K po. Rest as in resident's documentation
[2017-04-26] MEDS: Cefepime HCl 2,000 MG in Water for inj. (sterile) 20 ML IVP SCH (12:25)
[2017-04-26] MEDS: Ondansetron 4 MG/2 ML VIAL IVP PRN (16:21)
--- NOTE | 2017-04-26 18:21 | Nephrology Progress Note ---
Date of Encounter: 04/26/17 Time of Encounter: 17:05 - Assessment and Plan (1) Acute kidney injury Current Visit: Yes Status: Acute Continuing to trend better. Replete the K+ which is likely low d/t the polyuric phase of renal recovery. After discharge would recommend weekly BMP. 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 Will defer PNA to primary team. Consistent with ATN from multifactorial insults including XS OTC NSAIDs, infections (cellulitis), IV contrast and Vanco. Continuing to demonstrate renal recovery and is non-oliguric, without hyperkalemia, uremic confusion or other ongoing indications for HD. So will have the Rt IJ temporary HD catheter removed today to help lower the risks for CLABSI. I discussed the plan for the pt, floor RN and the hospitalist team. (2) Anemia Current Visit: Yes Status: Acute Qualifiers: Anemia type: unspecified type Qualified Code(s): D64.9 - Anemia, unspecified (3) Hypertension Current Visit: Yes Status: Chronic Qualifiers: Hypertension type: essential hypertension Qualified Code(s): I10 - Essential (primary) hypertension (4) Hypokalemia Current Visit: Yes Status: Acute Stable, so will add a one time dose of KCl. Suspect his may even be from perhaps the polyuric phase of renal recovery. (5) Nausea and vomiting Current Visit: Yes Status: Acute She does not appear uremic, so I doubt that she is having N/V from the BEVERLY, which is trending better and with excellent UOP. Qualifiers: Vomiting type: unspecified Vomiting Intractability: unspecified Qualified Code(s): R11.2 - Nausea with vomiting, unspecified (6) NSAID long-term use Current Visit: Yes Status: Acute She affirmed having a prolonged and high daily exposure to OTC NSAIDs. She may be at risk for PUD, which could be contributing to her N/V. Subjective Principal diagnosis: BEVERLY Interval history: Pt was s/e with her mother in the room. The pt said she has onoging Nausea but it may be as bad as occurred after her first treatment of HD, she reported. She reported that she regularly took NSAID meds not only for her chronic back pain but also for the discomfort of her skin rash. Objective - Vital Signs Vital signs: Vital Signs Temp Pulse Resp BP Pulse Ox 12/04/17 16:15 99.4 F 102 17 160/91 92 04/26/17 11:33 98.5 F 97 17 156/89 92 04/26/17 07:41 98.3 F 92 16 161/89 90 04/26/17 04:05 98.2 F 94 16 148/91 92 04/25/17 23:34 98.9 F 92 18 135/83 94 04/25/17 20:15 100.2 F H 107 18 152/94 93 Intake and Output 04/26/17 04/26/17 04/26/17 07:59 15:59 23:59 Intake Total 800 / 800 60 / 60 0 / 0 Output Total 1200 / 1200 800 / 800 Balance -400 / -400 60 / 60 -800 / -800 Intake: Oral 800 / 800 60 / 60 0 / 0 Output: Urine 800 / 800 800 / 800 Emesis 400 / 400 Other: Meal Breakfast Percent of Meal Consumed 0% Weight 110.223 kg Patient Weight 04/26/17 23:59 Weight 110.223 kg - Lab 04/26/17 04:35 04/26/17 04:35 Most recent lab results Calcium 8.5 mg/dL (8.6-10.8) L 04/26/17 04:35 Phosphorus 2.5 mg/dL (2.3-4.7) 04/14/17 14:10 Magnesium 2.0 mg/dL (1.6-2.6) 04/25/17 04:47 Urine Creatinine 73 mg/dL 04/22/17 12:35 Urine Sodium 47.0 mEq/L 04/17/17 14:20 Urine Total Protein 15 mg/dL (1-14) H 04/22/17 12:35 Consult Discharge Plan - Plan Referrals: Misti Parsons CNP [Primary Care Provider] - 04/27/17 1:00 pm ()
[2017-04-26] MEDS: Acetaminophen 325 MG TABLET PO PRN (21:13)
[2017-04-27] MEDS: *HR* HYDROmorphone (PF) 1 MG/ML SYRINGE IVP PRN (02:20)
[2017-04-27 05:37] LABS: Basophils # 0.1 K/mcL (0.0-0.2); Basophils % 0.4 %; Eosinophils # 0.5 K/mcL (0.0-0.6); Eosinophils % 3.9 %; Hematocrit 25.9 % (35.3-44.9); Hemoglobin 8.4 g/dL (11.5-15.4); Immature Granulocytes % 0.9 % (0-4); Lymphocytes # 1.7 K/mcL (0.6-4.6); Lymphocytes % 12.3 %; Mean Corpuscular HGB Conc 32.4 g/dL (31.6-35.5); Mean Corpuscular Hemoglobin 27.1 pg (28.0-33.3); Mean Corpuscular Volume 83.5 fL (83.0-100.0); Monocytes # 1.3 K/mcL (0.0-1.3); Monocytes % 9.4 %; Neutrophils # 9.8 K/mcL (1.6-8.9); Platelet Count 268 K/mcL (140-400); Red Cell Distribution Width 14.5 % (11.5-14.5); Segmented Neutrophils % 73.1 %
[2017-04-27] MEDS: *HR* Heparin 5,000 UNIT/ML VIAL SQ SCH ×2 (05:44→16:11)
[2017-04-27] MEDS: Ondansetron 4 MG/2 ML VIAL IVP PRN ×3 (05:45→22:10)
[2017-04-27] MEDS: Famotidine 20 MG TABLET PO SCH (05:51)
[2017-04-27 05:57] LABS: Calcium 8.8 mg/dL (8.6-10.8); Magnesium 1.6 mg/dL (1.6-2.6); Potassium 3.8 mEq/L (3.5-4.5)
--- NOTE | 2017-04-27 08:41 | Internal Med Progress Note ---
<Filiberto Lee - Last Filed: 04/27/17 10:07> Date of Encounter: 04/27/17 Time of Encounter: 08:39 - Assessment and plan (1) Acute kidney injury Current Visit: Yes Status: Acute Assessment and plan: Likely related to vancomycin toxicity however patient also received IV contrast as well as recent strep infection with a positive ASO titer as well as NSAID use so BEVERLY is likely multifactorial. GFR continues to improve, is 13 today. Patient had 1 dialysis session last Wednesday. Patient is still having excellent urine output. No hyperkalemia noted. Per nephrology, will continue to hold off on dialysis and monitor renal function. Temporary HD line has been removed. (2) Sepsis Current Visit: Yes Status: Resolved Assessment and plan: Initially admitted for sepsis due to impetigo/cellulitis, This has resolved. Unfortunately the patient has had worsening leukocytosis and fever over the weekend. Chest x-ray was indicative of bilateral pneumonia. Patient was started on broad-spectrum antibiotics with cefepime and vancomycin. White count better today and patient was afebrile overnight. Continue antibiotic therapy, will discontinue vancomycin. Repeat blood cultures preliminarily negative.. Qualifiers: Sepsis type: sepsis due to unspecified organism Qualified Code(s): A41.9 - Sepsis, unspecified organism (3) Pneumonia Current Visit: Yes Status: Acute Assessment and plan: As above. Send sputum culture when patient is able to make sputum Qualifiers: Pneumonia type: due to unspecified organism Laterality: bilateral Lung location: unspecified part of lung Qualified Code(s): J18.9 - Pneumonia, unspecified organism (4) Bullous impetigo Current Visit: Yes Status: Acute Assessment and plan: Patient had biopsy done as outpatient that revealed lesions consistent with bullous impetigo. Culture results have been inconclusive however given her positive ASO titer is likely a strep species. Staph cannot be ruled out. Completed 8 days of antibiotics. (5) Diarrhea Current Visit: Yes Status: Acute Assessment and plan: Resolved. C. difficile negative. Continue to monitor. Qualifiers: Diarrhea type: unspecified type Qualified Code(s): R19.7 - Diarrhea, unspecified (6) Nausea and vomiting Current Visit: Yes Status: Resolved Assessment and plan: Persistent, changed to Compazine over the weekend which seemed to help a little bit but patient still reports persistent nausea and vomiting particularly early in the morning. Qualifiers: Vomiting type: unspecified Vomiting Intractability: unspecified Qualified Code(s): R11.2 - Nausea with vomiting, unspecified (7) Left knee pain Current Visit: Yes Status: Acute Assessment and plan: Much improved. Exam unremarkable. X-ray negative. Qualifiers: Chronicity: acute Qualified Code(s): M25.562 - Pain in left knee - Subjective Interval history: Patient seen and examined at bedside. She states her knee pain is improved. she reports continued nausea and vomiting. She states this occurs at the same time every morning. She states it happens regardless of whether she eats or not. She denies fever, chills, chest pain, cough, shortness of breath. She reports good urine output. - Constitutional Vitals: Temp Pulse Resp BP Pulse Ox 98.5 F 99 15 160/92 91 04/27/17 07:32 04/27/17 07:32 04/27/17 07:32 04/27/17 07:32 04/27/17 07:32 General appearance: Present: A&O X 3, morbidly obese, no acute distress, answers questions appropriately - Respiratory Respiratory exam: Present: CTAB. Absent: rales, rhonchi, wheezes - Cardiovascular Cardiovascular exam: Present: RRR. Absent: gallop, rubs, systolic murmur - GI/Abdominal GI/Abdominal exam: Present: normal bowel sounds, soft. Absent: distended, tenderness - Extremities Exam Extremities exam: Present: pedal edema (trace), warm. Absent: tenderness Additional comments: No L knee tenderness, effusion, erythema. - Neurological Exam Neurological exam: Present: alert, CN II-XII intact, oriented X3, no focal deficits Internal Medicine: Result - Labs CBC & Chem 7: 04/27/17 05:00 04/27/17 05:00 Labs: Short CBC 04/27/17 Range/Units 05:00 WBC 13.5 H (4.3-11.1) K/mcL Hgb 8.4 L (11.5-15.4) g/dL Hct 25.9 L (35.3-44.9) % Plt Count 268 (140-400) K/mcL Neutrophils # 9.8 H (1.6-8.9) K/mcL BMP 04/27/17 05:00 Sodium 141 Potassium 3.8 Chloride 106 Carbon Dioxide 24 BUN 19 Creatinine 3.79 H Glucose 92 Calcium 8.8 - ABG Interpretation ABG results: PT/INR, D-dimer PT 15.5 Seconds (9.4-12.1) H 04/14/17 14:10 - Impressions Impressions Knee X-Ray 04/26/17 09:11 IMPRESSION: Sequela of remote MCL injury. No acute fracture, dislocation or joint effusion. D/ / Adam Orantes MD / Adam Orantes MD Interpreting Provider: Adam Orantes MD Consult Discharge Plan - Plan Referrals: iMsti Parsons CNP [Primary Care Provider] - 04/27/17 1:00 pm () <Adalberto Matias - Last Filed: 04/27/17 18:35> Date of Encounter: 04/27/17 - Constitutional Vitals: Temp Pulse Resp BP Pulse Ox 98.3 F 98 15 153/95 92 04/27/17 16:40 04/27/17 16:40 04/27/17 16:40 04/27/17 16:40 04/27/17 16:40 Internal Medicine: Result - Labs CBC & Chem 7: 04/27/17 05:00 04/27/17 05:00 Labs: Short CBC 04/27/17 Range/Units 05:00 WBC 13.5 H (4.3-11.1) K/mcL Hgb 8.4 L (11.5-15.4) g/dL Hct 25.9 L (35.3-44.9) % Plt Count 268 (140-400) K/mcL Neutrophils # 9.8 H (1.6-8.9) K/mcL BMP 04/27/17 05:00 Sodium 141 Potassium 3.8 Chloride 106 Carbon Dioxide 24 BUN 19 Creatinine 3.79 H Glucose 92 Calcium 8.8 - ABG Interpretation ABG results: PT/INR, D-dimer PT 15.5 Seconds (9.4-12.1) H 04/14/17 14:10 - Attending Attestation I conducted a face to face diagnostic evaluation of this patient and my medical decision-making was reviewed with the Resident Physician, Dr. Filiberto Lee. I agree with the documented findings, disposition and treatment plan as described except to the extent set forth below: My examination abdomen is soft, tender to deep palpation in the epigastric area. Plan given protracted hospitalization and use of NSAIDs aids and upper GI symptoms we will consult GI for possible need for upper endoscopy and H. pylori testing. All medical problems or new to me today.
[2017-04-27] MEDS: Prochlorperazine 10 MG/2 ML VIAL IVP PRN ×4 (09:23→23:45)
[2017-04-27] MEDS: amLODIPine 5 MG TABLET PO SCH (09:23)
[2017-04-27] MEDS ORDERED: Vancomycin 1,000 MG in D5% in Water 250 ML IVPB ONE (10:34)
[2017-04-27] MEDS ORDERED: Aminoglycoside Consult 1 EACH MC ONE (13:07)
[2017-04-27] MEDS: Cefepime HCl 2,000 MG in Water for inj. (sterile) 20 ML IVP SCH (13:12)
--- NOTE | 2017-04-27 14:40 | Gastroenterology Consult Note ---
<Pantera Mcmahan - Last Filed: 04/27/17 15:05> Date of Encounter: 04/27/17 Time of Encounter: 14:39 - Assessment and plan (1) Nausea and vomiting Current Visit: Yes Status: Acute Assessment and plan: Patient reports nausea and vomiting which worsens with food. Patient has been tried on Zofran, Phenergan, Reglan, Compazine without improvement in her symptoms. She reports nausea today and has been able to keep her food down. patient has been receiving Dilaudid and [place] for pain control which may take part in her symptoms. Does not have a history of diabetes. History of appendectomy, cholecystectomy. Gallbladder ultrasound and abdominal CT negative for any acute findings. Bilirubin and liver enzymes within normal limits. Plan: EGD tomorrow clear liquid diet. Qualifiers: Vomiting type: unspecified Vomiting Intractability: unspecified Qualified Code(s): R11.2 - Nausea with vomiting, unspecified (2) Acute kidney injury Current Visit: Yes Status: Acute Assessment and plan: Improving. Multifactorial: Vancomycin toxicity, IV contrast, NSAID use, ASO titer positive. 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 (3) Pneumonia Current Visit: Yes Status: Acute Assessment and plan: Currently patient is being treated with cefepime. As per primary. Qualifiers: Pneumonia type: due to unspecified organism Laterality: bilateral Lung location: unspecified part of lung Qualified Code(s): J18.9 - Pneumonia, unspecified organism - Time Spent With Patient Total time spent is greater than 50% in coordination of care (as documented) at patient's floor/unit and/or counseling patient: GI History of Present Illness - Data of Consult Patient: new to practice Consult date: 04/27/17 Requesting Physician: Adalberto Matias MD - Consult Narrative Reason for consult: Nausea vomiting History of present illness: Ms. France is a 37 year old female female admitted to weeks ago for sepsis secondary to impetigo treated with antibiotics. Patient thereafter developed acute kidney injury, acute tubular necrosis secondary to vancomycin toxicity, NSAID use, IV contrast. Patient ended up needing dialysis however her GFR continues to improve and she is making good urine. During this admission patient started developing nausea and vomiting which was not controlled with Zofran, Phenergan, Reglan, or Compazine. Patient had abdominal ultrasound which is negative. She has had a cholecystectomy and appendectomy. Abdominal CT was negative for any acute abdominal findings. Patient reports her nausea occurs after eating any type of food. She denies any abdominal pain. She denies any vomiting today. Denies any diarrhea. She was able to keep her breakfast down today. Past Med Surg Social Fam HX - Past Medical History Medical history: no medical history Psychiatric history: no psych history - Past Surgical History Surgical History: appendectomy, cholecystectomy - Social History Smoking Status: Never smoker Smokeless Tobacco Status: No Alcohol use: none Drug use: none - Family History Father Living Status: Still Living Hx Family Cardiac Disorders: Yes (hypertension) Hx Family Endocrine Disorder: Yes (diabetes) Review of Systems: Constitutional: Denies fever, chills HEENT: Denies headache, vision changes, neck pain, sore throat, rhinorrhea Heart: Denies chest pain palpitations Lungs: Denies shortness of breath cough Abdomen: Denies abdominal pain, vomiting, diarrhea. Reports nausea. Back: Denies back pain Kidney: Denies dysuria, hematuria Skin: warm and dry Extremities: Denies swelling, pain Neuro: Denies numbness, and tingling - Constitutional Vitals: Temp Pulse Resp BP Pulse Ox 98.6 F 101 15 158/99 94 04/27/17 11:48 04/27/17 11:48 04/27/17 11:48 04/27/17 11:48 04/27/17 11:48 - Other Additional findings: General: Pleasant without distress HEENT: Head atraumatic, normocephalic, EOMI, PERRL, neck nontender to palpation , Moist Mucous Membranes, Heart: Regular rate and rhythm with no murmur Lungs: Clear to auscultation bilaterally Abdomen: Soft nontender, nondistended positive bowel sounds Skin: warm and dry Extremities: Absent pedal edema, Neuro: Alert oriented 3 Vascular: Pedal and radial pulses 2 out of 4 Results - Labs CBC & Chem 7: 04/27/17 05:00 04/27/17 05:00 Labs: Last Result Calcium 8.8 mg/dL (8.6-10.8) 04/27/17 05:00 Iron 25 mcg/dL (50-170) L 04/21/17 12:43 % Saturation 12 % (15-50) L 04/21/17 12:43 Transferrin 150 mg/dL (180-382) L 04/21/17 12:43 Ferritin 174 ng/ml (5-204) 04/21/17 12:43 Troponin I 0.00 ng/mL (0-0.03) 04/14/17 14:10 Vitamin B12 1327 pg/mL (213-816) H 04/21/17 12:43 Folate 13.0 ng/mL (7.0-31.4) 04/21/17 12:43 Entire Visit Hgb 8.4 g/dL (11.5-15.4) L 04/27/17 05:00 Hct 25.9 % (35.3-44.9) L 04/27/17 05:00 PT 15.5 Seconds (9.4-12.1) H 04/14/17 14:10 Ferritin 174 ng/ml (5-204) 04/21/17 12:43 Total Bilirubin 0.3 mg/dL (0.2-1.2) 04/20/17 05:26 AST 11 Units/L (5-34) 04/20/17 05:26 ALT 11 Units/L (0-55) 04/20/17 05:26 Folate 13.0 ng/mL (7.0-31.4) 04/21/17 12:43 - ABG ABG results: PT/INR, D-dimer PT 15.5 Seconds (9.4-12.1) H 04/14/17 14:10 Consult Discharge Plan - Plan Referrals: Misti Parsons, MANUFACTURING PROJECT ENGINEER [Primary Care Provider] - 05/04/17 1:00 pm (Please follow up as schedule...) <Alfredo Mancia - Last Filed: 04/29/17 07:04> Date of Encounter: 04/27/17 - Time Spent With Patient Total time spent is greater than 50% in coordination of care (as documented) at patient's floor/unit and/or counseling patient: GI History of Present Illness - Data of Consult Requesting Physician: Adalberto Matias MD - Consult Narrative History of present illness: Ms. France is a 37 year old female - Constitutional Vitals: Temp Pulse Resp BP Pulse Ox 97.7 F 84 17 122/79 94 04/29/17 06:40 04/29/17 06:40 04/29/17 06:40 04/29/17 06:40 04/29/17 06:40 Results - Labs CBC & Chem 7: 04/29/17 03:50 04/29/17 03:50 Labs: Last Result Calcium 8.8 mg/dL (8.6-10.8) 04/29/17 03:50 Iron 25 mcg/dL (50-170) L 04/21/17 12:43 % Saturation 12 % (15-50) L 04/21/17 12:43 Transferrin 150 mg/dL (180-382) L 04/21/17 12:43 Ferritin 174 ng/ml (5-204) 04/21/17 12:43 Troponin I 0.00 ng/mL (0-0.03) 04/14/17 14:10 Vitamin B12 1327 pg/mL (213-816) H 04/21/17 12:43 Folate 13.0 ng/mL (7.0-31.4) 04/21/17 12:43 Entire Visit Hgb 8.6 g/dL (11.5-15.4) L 04/29/17 03:50 Hct 26.5 % (35.3-44.9) L 04/29/17 03:50 PT 15.5 Seconds (9.4-12.1) H 04/14/17 14:10 Ferritin 174 ng/ml (5-204) 04/21/17 12:43 Total Bilirubin 0.3 mg/dL (0.2-1.2) 04/20/17 05:26 AST 11 Units/L (5-34) 04/20/17 05:26 ALT 11 Units/L (0-55) 04/20/17 05:26 Folate 13.0 ng/mL (7.0-31.4) 04/21/17 12:43 - ABG ABG results: PT/INR, D-dimer PT 15.5 Seconds (9.4-12.1) H 04/14/17 14:10 - Attending Attestation Patient with two episodes of vertigo which ended in the nausea and subsequent vomiting. Recommend Tilt table test. Feel endoscopy will be unhelpful. I examined this patient and my medical decision-making was reviewed with the Resident Physician. I agree with the documented findings, disposition and treatment plan as described except to the extent set forth below.
[2017-04-27] MEDS: *HR* OxyCODONE/APAP 10/325 TABLET PO PRN (23:38)
[2017-04-28] MEDS: *HR* OxyCODONE/APAP 5/325 TABLET PO PRN ×2 (01:06→08:29)
[2017-04-28 03:58] LABS: Basophils # 0.1 K/mcL (0.0-0.2); Basophils % 0.4 %; Eosinophils # 0.6 K/mcL (0.0-0.6); Hematocrit 25.1 % (35.3-44.9); Hemoglobin 8.2 g/dL (11.5-15.4); Immature Granulocytes % 0.7 % (0-4); Lymphocytes % 16.4 %; Mean Corpuscular HGB Conc 32.7 g/dL (31.6-35.5); Mean Corpuscular Hemoglobin 27.5 pg (28.0-33.3); Mean Corpuscular Volume 84.2 fL (83.0-100.0); Monocytes # 1.2 K/mcL (0.0-1.3); Monocytes % 9.6 %; Neutrophils # 8.4 K/mcL (1.6-8.9); Platelet Count 230 K/mcL (140-400); Red Blood Count 2.98 M/mcL (3.82-4.97); Red Cell Distribution Width 14.4 % (11.5-14.5); Segmented Neutrophils % 67.9 %
[2017-04-28 04:00] LABS: Calcium 8.7 mg/dL (8.6-10.8); Magnesium 1.5 mg/dL (1.6-2.6); Potassium 3.7 mEq/L (3.5-4.5)
[2017-04-28] MEDS: Famotidine 20 MG TABLET PO SCH (06:20)
[2017-04-28] MEDS: *HR* Heparin 5,000 UNIT/ML VIAL SQ SCH ×2 (06:20→18:20)
[2017-04-28] MEDS: Ondansetron 4 MG/2 ML VIAL IVP PRN ×3 (06:20→16:27)
[2017-04-28] MEDS: *HR* OxyCODONE/APAP 10/325 TABLET PO PRN ×3 (06:33→23:44)
[2017-04-28] MEDS: Prochlorperazine 10 MG/2 ML VIAL IVP PRN ×3 (08:29→20:21)
[2017-04-28] MEDS: amLODIPine 5 MG TABLET PO SCH (08:29)
[2017-04-28] MEDS: Cefepime HCl 2,000 MG in Water for inj. (sterile) 20 ML IVP SCH (13:52)
--- NOTE | 2017-04-28 16:11 | Internal Med Progress Note ---
<Filiberto Lee - Last Filed: 04/28/17 16:09> Date of Encounter: 04/28/17 Time of Encounter: 16:09 - Assessment and plan (1) Acute kidney injury Status: Acute Assessment and plan: Likely related to vancomycin toxicity however patient also received IV contrast as well as recent strep infection with a positive ASO titer as well as NSAID use so BEVERLY is likely multifactorial. GFR continues to improve, is 15 today. Patient had 1 dialysis session last Wednesday. Patient is still having excellent urine output. No hyperkalemia noted. Per nephrology, will continue to hold off on dialysis and monitor renal function. Temporary HD line has been removed. (2) Sepsis Status: Resolved Assessment and plan: Initially admitted for sepsis due to impetigo/cellulitis, This has resolved. Unfortunately the patient has had worsening leukocytosis and fever over the weekend. Chest x-ray was indicative of bilateral pneumonia. Patient was started on broad-spectrum antibiotics with cefepime and vancomycin. White count continues to improve patient was afebrile overnight. Continue antibiotic therapy, will discontinue vancomycin. We will transition to by mouth antibiotics tomorrow. Repeat blood cultures preliminarily negative.. Qualifiers: Sepsis type: sepsis due to unspecified organism Qualified Code(s): A41.9 - Sepsis, unspecified organism (3) Pneumonia Status: Acute Assessment and plan: As above. Send sputum culture when patient is able to make sputum Qualifiers: Pneumonia type: due to unspecified organism Laterality: bilateral Lung location: unspecified part of lung Qualified Code(s): J18.9 - Pneumonia, unspecified organism (4) Bullous impetigo Status: Acute Assessment and plan: Patient had biopsy done as outpatient that revealed lesions consistent with bullous impetigo. Culture results have been inconclusive however given her positive ASO titer is likely a strep species. Staph cannot be ruled out. Completed 8 days of antibiotics. (5) Diarrhea Status: Acute Assessment and plan: Resolved. C. difficile negative. Continue to monitor. Qualifiers: Diarrhea type: unspecified type Qualified Code(s): R19.7 - Diarrhea, unspecified (6) Nausea and vomiting Status: Acute Assessment and plan: Persistent, changed to Compazine over the weekend which seemed to help a little bit but patient still reports persistent nausea and vomiting particularly early in the morning. Symptoms as persisted, GI has been consulted and patient will undergo upper endoscopy today. Qualifiers: Vomiting type: unspecified Vomiting Intractability: unspecified Qualified Code(s): R11.2 - Nausea with vomiting, unspecified (7) Left knee pain Status: Acute Assessment and plan: Resolved. Exam unremarkable. X-ray negative. Qualifiers: Chronicity: acute Qualified Code(s): M25.562 - Pain in left knee - Subjective Interval history: Patient seen and examined at bedside. she reports continued nausea and vomiting. She denies fever, chills, chest pain, cough, shortness of breath. She reports good urine output. - Constitutional Vitals: Temp Pulse Resp BP Pulse Ox 98.0 F 92 16 127/84 94 04/28/17 16:00 04/28/17 16:00 04/28/17 16:00 04/28/17 16:00 04/28/17 16:00 General appearance: Present: A&O X 3, morbidly obese, no acute distress, answers questions appropriately - Respiratory Respiratory exam: Present: CTAB. Absent: rales, rhonchi, wheezes - Cardiovascular Cardiovascular exam: Present: RRR. Absent: gallop, rubs, systolic murmur - GI/Abdominal GI/Abdominal exam: Present: normal bowel sounds, soft. Absent: distended, tenderness - Extremities Exam Extremities exam: Present: pedal edema (1+, improving), warm. Absent: tenderness - Neurological Exam Neurological exam: Present: alert, CN II-XII intact, oriented X3, no focal deficits Internal Medicine: Result - Labs CBC & Chem 7: 04/28/17 03:30 04/28/17 03:30 Labs: Short CBC 04/28/17 Range/Units 03:30 WBC 12.3 H (4.3-11.1) K/mcL Hgb 8.2 L (11.5-15.4) g/dL Hct 25.1 L (35.3-44.9) % Plt Count 230 (140-400) K/mcL Neutrophils # 8.4 (1.6-8.9) K/mcL BMP 04/28/17 03:30 Sodium 141 Potassium 3.7 Chloride 106 Carbon Dioxide 21 BUN 17 Creatinine 3.44 H Glucose 98 Calcium 8.7 - ABG Interpretation ABG results: PT/INR, D-dimer PT 15.5 Seconds (9.4-12.1) H 04/14/17 14:10 Consult Discharge Plan - Plan Instructions: Anemia (GEN), Pneumonia (DC) Additional Instructions: Please follow up with Misti Parsons as scheduled. Please follow up with nephrology and dermatology as scheduled. Please have your labs checked the day before you see the kidney doctor. Please take your antibiotic pill on May 01. Please take the 2 blood pressure medication pills and stomach pill daily. Please stay well hydrated. Please return for any new or worsening symptoms. Referrals: Umu Blanchard DO [Resident] - 05/06/17 8:00 am ([facility]) Soo Bates MD [Partnered Physician] - 05/27/17 12:30 pm (3-4 weeks) Nicholas Aiken DO [Partnered Physician] - 05/18/17 2:10 pm (2-3 weeks) Prescriptions: Ondansetron ODT [Zofran ODT] 8 mg SL Q12HR PRN #20 tab.rapdis PRN Reason: nausea amLODIPine [Norvasc] 10 mg PO DAILY #30 tablet Ferrous Sulfate 325 mg PO BID #60 tablet. Labetalol [Trandate] 300 mg PO BID #60 tablet levoFLOXacin [Levofloxacin] 500 mg PO ONCE #1 tablet Omeprazole [PriLOSEC] 20 mg PO DAILY@0630 #30 capsule. <Adalberto Matias - Last Filed: 04/29/17 17:48> Date of Encounter: 04/28/17 - Constitutional Vitals: Temp Pulse Resp BP Pulse Ox 97.7 F 84 17 122/79 94 04/29/17 06:40 04/29/17 06:40 04/29/17 06:40 04/29/17 06:40 04/29/17 06:40 Internal Medicine: Result - Labs CBC & Chem 7: 04/29/17 03:50 04/29/17 03:50 Labs: Short CBC 04/29/17 Range/Units 03:50 WBC 10.4 (4.3-11.1) K/mcL Hgb 8.6 L (11.5-15.4) g/dL Hct 26.5 L (35.3-44.9) % Plt Count 277 (140-400) K/mcL Neutrophils # 6.9 (1.6-8.9) K/mcL BMP 04/29/17 03:50 Sodium 140 Potassium 3.8 Chloride 104 Carbon Dioxide 22 BUN 16 Creatinine 2.94 H Glucose 90 Calcium 8.8 - ABG Interpretation ABG results: PT/INR, D-dimer PT 15.5 Seconds (9.4-12.1) H 04/14/17 14:10 - Attending Attestation I conducted a face to face diagnostic evaluation of this patient and my medical decision-making was reviewed with the Resident Physician, Dr. Filiberto Lee. I agree with the documented findings, disposition and treatment plan as described except to the extent set forth below: Patient reports continued nausea. On exam she is in no acute distress, abdomen soft. EGD today. Nothing by mouth.
[2017-04-28] MEDS ORDERED: *HR* Midazolam HCl 5 MG/5 ML VIAL IVP ONE ×2 (16:49→16:58)
[2017-04-28] MEDS ORDERED: *HR* FentaNYL (PF) 100 MCG/2 ML VIAL ONE (16:51)
[2017-04-28] MEDS ORDERED: *HR* FentaNYL (PF) 100 MCG/2 ML VIAL IVP ONE (16:58)
[2017-04-28] MEDS ORDERED: Tetracaine/Benzocaine/Butamben 200MG/SPRAY (100SPY/BOT) MM ONE (16:58)
[2017-04-28] MEDS ORDERED: Simethicone 40 MG/0.6 ML MLS IR ONE (16:58)
[2017-04-28] MEDS ORDERED: 0.9 % Sodium Chloride 500 ML IVC SCH (17:00)
[2017-04-29] MEDS: Ondansetron 4 MG/2 ML VIAL IVP PRN ×2 (03:33→08:56)
[2017-04-29] MEDS: *HR* OxyCODONE/APAP 10/325 TABLET PO PRN (03:48)
[2017-04-29 04:16] LABS: Basophils # 0.1 K/mcL (0.0-0.2); Basophils % 0.7 %; Eosinophils # 0.6 K/mcL (0.0-0.6); Eosinophils % 5.6 %; Hematocrit 26.5 % (35.3-44.9); Hemoglobin 8.6 g/dL (11.5-15.4); Immature Granulocytes % 0.5 % (0-4); Lymphocytes # 1.9 K/mcL (0.6-4.6); Lymphocytes % 18.2 %; Mean Corpuscular HGB Conc 32.5 g/dL (31.6-35.5); Mean Corpuscular Hemoglobin 27.6 pg (28.0-33.3); Mean Corpuscular Volume 84.9 fL (83.0-100.0); Mean Platelet Volume 10.3 fL (9.4-12.4); Monocytes % 9.2 %; Neutrophils # 6.9 K/mcL (1.6-8.9); Platelet Count 277 K/mcL (140-400); Red Blood Count 3.12 M/mcL (3.82-4.97); Red Cell Distribution Width 14.2 % (11.5-14.5); Segmented Neutrophils % 65.8 %
[2017-04-29 04:27] LABS: Calcium 8.8 mg/dL (8.6-10.8); Magnesium 1.7 mg/dL (1.6-2.6); Potassium 3.8 mEq/L (3.5-4.5)
[2017-04-29 06:44] VITALS: BP 122/79
[2017-04-29] MEDS: *HR* Heparin 5,000 UNIT/ML VIAL SQ SCH (06:50)
[2017-04-29] MEDS: Famotidine 20 MG TABLET PO SCH (06:50)
[2017-04-29] MEDS ORDERED: levoFLOXacin 500 MG TABLET PO ONE (08:17)
--- NOTE | 2017-04-29 08:18 | Discharge Summary ---
<Filiberto Lee - Last Filed: 04/29/17 09:24> Date of Encounter: 04/29/17 Time of Encounter: 08:14 - Discharge Diagnosis (1) Acute kidney injury Priority: Primary Status: Acute (2) Sepsis Priority: Secondary Status: Resolved Qualifiers: Sepsis type: sepsis due to unspecified organism Qualified Code(s): A41.9 - Sepsis, unspecified organism (3) Pneumonia Priority: Primary Status: Acute Qualifiers: Pneumonia type: due to unspecified organism Laterality: bilateral Lung location: unspecified part of lung Qualified Code(s): J18.9 - Pneumonia, unspecified organism (4) Bullous impetigo Priority: Secondary Status: Chronic (5) Diarrhea Priority: Secondary Status: Resolved Qualifiers: Diarrhea type: unspecified type Qualified Code(s): R19.7 - Diarrhea, unspecified (6) Nausea and vomiting Priority: Secondary Status: Resolved Qualifiers: Vomiting type: unspecified Vomiting Intractability: unspecified Qualified Code(s): R11.2 - Nausea with vomiting, unspecified (7) Left knee pain Priority: Secondary Status: Resolved Qualifiers: Chronicity: acute Qualified Code(s): M25.562 - Pain in left knee - Discharge Medications Prescriptions: Ondansetron ODT [Zofran ODT] 8 mg SL Q12HR PRN #20 tab.rapdis PRN Reason: nausea amLODIPine [Norvasc] 10 mg PO DAILY #30 tablet Ferrous Sulfate 325 mg PO BID #60 tablet. Labetalol [Trandate] 300 mg PO BID #60 tablet levoFLOXacin [Levofloxacin] 500 mg PO ONCE #1 tablet Omeprazole [PriLOSEC] 20 mg PO DAILY@0630 #30 capsule. Home Medications: Ferrous Sulfate 325 mg PO BID #60 tablet. 04/29/17 [Rx] Labetalol [Trandate] 300 mg PO BID #60 tablet 04/29/17 [Rx] Omeprazole [PriLOSEC] 20 mg PO DAILY@0630 #30 capsule. 04/29/17 [Rx] Ondansetron ODT [Zofran ODT] 8 mg SL Q12HR PRN #20 tab.rapdis 04/29/17 [Rx] amLODIPine [Norvasc] 10 mg PO DAILY #30 tablet 04/29/17 [Rx] levoFLOXacin [Levofloxacin] 500 mg PO ONCE #1 tablet 04/29/17 [Rx] Allergies/Adverse Reactions: 3 Allergy/AdvReac Type Severity Reaction Status Date / Time No Known Allergies Allergy Verified 03/11/17 15:45 Date of admission: 04/14/17 19:45 Primary care physician: Misti Parsons CNP Consults: 04/16/17 14:39 Consult to Nephrology [CONS] Routine Consulting Provider: Kidney Francoise/ARMANDO/HUA/BRET Reason for Consult: ARF on Vancomycin Time Notified: 14:39 Call Completed: No 04/21/17 10:37 Consult to Interventional Radiology [CONS] Routine Consulting Provider: Radiology Interventional Cols Reason for Consult: Patient needs temp HD line for dialysis. Call Completed: Yes 04/21/17 13:15 Consult to Dialysis [CONS] ONCE 04/22/17 13:15 Consult to Dialysis [CONS] ONCE 04/27/17 11:15 Consult to Gastroenterology [CONS] Routine Consulting Provider: Gastroenterology Francoise Reason for Consult: Persistant nausea and vomiting Call Completed: Yes Discharging clinician: Filiberto Lee Anticipated date of discharge: 04/29/17 - Patient Status Disposition: Home, Self-Care Condition: Fair Functional capacity at discharge: independent ambulation Overall status at discharge: patient is progressing back to baseline - Ambulatory Orders Ambulatory Orders: Basic Metabolic Panel [CHEM] Time Frame: 2 Weeks, Facility: [facility], Location: Lab - Discharge Instructions Instructions: Anemia (GEN), Pneumonia (DC) Follow Up With: Umu Blanchard DO [Resident] - 05/06/17 8:00 am (Located by the [facility] under the carport) Soo Bates MD [Partnered Physician] - 05/27/17 12:30 pm (3-4 weeks) Nicholas Aiken DO [Partnered Physician] - 05/18/17 2:10 pm (2-3 weeks) Additional Instructions: Please follow up with Misti Parsons as scheduled. Please follow up with nephrology and dermatology as scheduled. Please have your labs checked the day before you see the kidney doctor. Please take your antibiotic pill on May 01. Please take the 2 blood pressure medication pills and stomach pill daily. Please stay well hydrated. Please return for any new or worsening symptoms. - Diet and Activity Activity: increase activity as tolerated Diet: advance to your usual diet Interval History: Patient seen and examined. She states that she feels okay today. She has no new complaints. She is eating and drinking with minimal nausea. She reports good urine output. She denies pain, fever, chills, chest pain, shortness of breath, abdominal pain. Hospital course: Ms. France is a 37 year old female who was recently diagnosed with bullous impetigo presented with with fever and erythematous blisters on her skin. She was initially diagnosed with sepsis due to cellulitis and started on broad- spectrum antibiotics. Her infection appeared to improve with antibiotic use however on hospital day 2 her creatinine began to rise and continued to rise until peaked at 7.79. 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 Patient had excellent urine output throughout her entire stay and received 1 session of dialysis on hospital day 8 due to fluid overload. Postdialysis her renal function continually improved and has remained to trend down. Her I's and urine output have remained normal throughout her stay. On hospital day 10 she developed fever, cough, shortness of breath and an elevated leukocytosis and chest x-ray showed a right lower lobe pneumonia. She was treated empirically with vancomycin and cefepime and vancomycin was discontinued after the return of negative blood cultures. She improved with antimicrobial therapy. She also had persistent nausea and vomiting throughout her stay and had difficulty eating because of this. Her nausea and vomiting was refractory to medical therapy including Zofran, Phenergan, Reglan, Compazine. Given the persistent nature of her nausea and vomiting gastroenterology was consulted and the patient underwent EGD that showed gastritis. Biopsies were taken and are pending. Patient's nausea and vomiting had improved after the procedure and the patient was placed on a PPI. Patient will be discharged home in stable condition with instructions to follow- up with nephrology and her PCP as well as dermatology and to have her renal function checked prior to seeing nephrology as an outpatient. - Time Spent with Patient Total time spent providing and/or coordinating discharge services: - Constitutional Vitals: Temp Pulse Resp BP Pulse Ox 97.7 F 84 17 122/79 94 04/29/17 06:40 04/29/17 06:40 12/07/17 06:40 04/29/17 06:40 04/29/17 06:40 General appearance: Present: A&O X 3, morbidly obese, no acute distress, answers questions appropriately - Respiratory Respiratory exam: Present: CTAB. Absent: rales, rhonchi, wheezes - Cardiovascular Cardiovascular exam: Present: RRR. Absent: gallop, rubs, systolic murmur - GI/Abdominal GI/Abdominal exam: Present: normal bowel sounds, soft. Absent: distended, tenderness - Extremities Exam Extremities exam: Present: warm. Absent: pedal edema, tenderness - Neurological Exam Neurological exam: Present: alert, CN II-XII intact, oriented X3, no focal deficits <Adalberto Matias - Last Filed: 04/29/17 18:19> Date of Encounter: 04/29/17 Date of admission: 04/14/17 19:45 Primary care physician: Misti Parsons CNP Consults: 04/16/17 14:39 Consult to Nephrology [CONS] Routine Consulting Provider: Kidney Francoise/ARMANDO/HUA/BRET Reason for Consult: ARF on Vancomycin Time Notified: 14:39 Call Completed: No 04/21/17 10:37 Consult to Interventional Radiology [CONS] Routine Consulting Provider: Radiology Interventional Cols Reason for Consult: Patient needs temp HD line for dialysis. Call Completed: Yes 04/21/17 13:15 Consult to Dialysis [CONS] ONCE 04/22/17 13:15 Consult to Dialysis [CONS] ONCE 04/27/17 11:15 Consult to Gastroenterology [CONS] Routine Consulting Provider: Gastroenterology Francoise Reason for Consult: Persistant nausea and vomiting Call Completed: Yes Hospital course: Ms. France is a 37 year old female - Time Spent with Patient Total time spent providing and/or coordinating discharge services: - Constitutional Vitals: Temp Pulse Resp BP Pulse Ox 97.7 F 84 17 122/79 94 04/29/17 06:40 04/29/17 06:40 04/29/17 06:40 04/29/17 06:40 04/29/17 06:40 - Attending Attestation I conducted a face to face diagnostic evaluation of this patient and my medical decision-making was reviewed with the Resident Physician, Dr. Filiberto Lee. I agree with the documented findings, disposition and treatment plan as described except to the extent set forth below: Patient reports mild nausea. She has tolerated a diet. Her abdomen is soft, nontender nondistended with normoactive bowel sounds. She had an EGD done yesterday which showed gastritis which was biopsied. This should be followed up outpatient with PCP or gastroenterology. I will add Zofran when necessary nausea.
[2017-04-29] MEDS: amLODIPine 5 MG TABLET PO SCH (08:52)
[2017-04-29] MEDS: *HR* OxyCODONE/APAP 5/325 TABLET PO PRN (08:56)
[2017-04-29] MEDS ORDERED: FLUARIX QUAD 2017-18 36MOS UP/PF 0.5 ML SYRINGE IM ONE (09:02)
[2017-04-29] MEDS: Prochlorperazine 10 MG/2 ML VIAL IVP PRN (11:00)
== END 2017-04-29 12:00 | disposition home or self-care (01) | DRG 871 ==
LOC: 3NENU 12:41 → EMEROO 12:41 → 3NENU 19:19 → SUATTDRO 19:45 → 2ANU 04-18 13:18
PROVIDERS: ADMIT Hospitalist; ATTEND Internal Medicine
PROC: ENDOEBX (2017-04-28 13:30)

== ENCOUNTER 2017-05-06 09:17 | Inpatient (IN) ==
[2017-05-06] MEDS ORDERED: Ondansetron 4 MG/2 ML VIAL IVP ONE (09:32)
[2017-05-06] MEDS ORDERED: 0.9 % Sodium Chloride 1,000 ML IVC ONE (09:32)
--- NOTE | 2017-05-06 09:37 | Emergency Department Note ---
Disposition Clinical Impression: Nausea & vomiting Qualifiers: Vomiting type: unspecified Vomiting Intractability: unspecified Qualified Code( s): R11.2 - Nausea with vomiting, unspecified Arthralgia Qualifiers: Joint pain location: unspecified Qualified Code(s): M25.50 - Pain in unspecified joint Disposition: Admitted As Inpatient Condition: Fair Referrals: Umu Blanchard DO [Primary Care Provider] - Forms: ED Satisfaction Letter Time of Disposition: 11:55 General Adult HPI - General Chief complaint: ED Nausea/Vomiting/Diarrhea Stated complaint: BODY ACHES Time Seen by Provider: 05/06/17 09:27 Source: patient Limitations: no limitations Nursing Notes Reviewed: Yes Vital Signs Reviewed: Yes - History of Present Illness HPI Narrative: 37-year-old who was hospitalized last week with pneumonia and nausea vomiting. Patient states she went home on the seventh has continued to have nausea vomiting. She has generalized body aches and cough. Over admission shows that her antistreptolysin was positive she had some hematuria. She had renal insufficiency. Patient states she feels no better and is actually feeling worse. Pt Subjective Complaint: Nausea vomiting Onset (ago): day(s) Location: other (Enteral arthralgias) Radiation: non-radiation Pain Scale: 10 Quality: aching Consistency: constant Improves with: nothing Worsens with: nothing Associated symptoms: Reports: cough, nausea/vomiting Treatments Prior to Arrival: other (Treated with Levaquin.) - Related Data Previous Rx's Medication Instructions Recorded Ferrous Sulfate 325 mg PO BID #60 tablet. 04/29/17 Labetalol [Trandate] 300 mg PO BID #60 tablet 04/29/17 Omeprazole [PriLOSEC] 20 mg PO DAILY@0630 #30 capsule. 04/29/17 Ondansetron ODT [Zofran ODT] 8 mg SL Q12HR PRN #20 tab.rapdis 04/29/17 amLODIPine [Norvasc] 10 mg PO DAILY #30 tablet 04/29/17 levoFLOXacin [Levofloxacin] 500 mg PO ONCE #1 tablet 04/29/17 predniSONE [PredniSONE] 40 mg PO DAILY #10 tablet 04/30/17 Allergies Allergy/AdvReac Type Severity Reaction Status Date / Time IV DYE Allergy See Uncoded 05/06/17 09:19 Comments All systems ED: reviewed and negative except as stated. Constitutional: Denies: fever, chills, weakness, weight change Eyes: Denies: eye pain, eye discharge, vision change ENT ED: Denies: ear pain, throat pain, dental pain, hearing loss, epistaxis, congestion, dysphagia Cardiovascular: Denies: chest pain, palpitations, dyspnea on exertion, edema, syncope Respiratory: Denies: cough, dyspnea, wheezes, hemoptysis, stridor Gastrointestinal: Denies: abdominal pain, nausea, vomiting, diarrhea, constipation, hematemesis, melena, hematochezia Genitourinary: Denies: dysuria, frequency, hematuria, discharge Musculoskeletal: Reports: arthralgia. Denies: back pain, neck pain, myalgia Integumentary: Denies: rash, abrasion, lesions Neurological: Denies: headache, weakness, numbness, paresthesias, confusion, abnormal gait, vertigo Psychiatric: Denies: anxiety, depression, suicidal thoughts, homicidal thoughts , auditory hallucinations, visual hallucinations Endocrine: Denies: fatigue Hematological/Lymphatic: Denies: easy bleeding, easy bruising Allergic/Immunologic: Denies: facial swelling, urticaria Past Medical History - Past Medical History Medical history: Reports: dialysis, hypertension, other Surgical history: Reports: appendectomy, cholecystectomy Psychiatric history: Reports: no psych history - Social History Smoking Status: Never smoker Smokeless Tobacco Status: No Alcohol use: Reports: none Drug use: Reports: none Physical Exam - General Limitations: no limitations General appearance: alert, in no apparent distress - Head Head exam: atraumatic, normocephalic, normal inspection - Eye Eye exam: Present: normal appearance, PERRL, EOMI - ENT ENT exam: normal exam, normal oropharynx, mucous membranes moist - Neck Neck exam: Present: normal inspection, full ROM, trachea midline - Chest Chest inspection: Present: normal inspection, symmetric chest wall rise - Respiratory Respiratory exam: Present: normal lung sounds bilaterally - Cardiovascular Cardiovascular exam: Present: regular rate, normal rhythm, normal heart sounds - Abdominal Exam Abdominal exam: Present: soft, Non-Tender. Absent: tenderness, distention, guarding, rebound, rigidity - Extremities Exam Extremities exam: Present: normal inspection, full ROM. Absent: tenderness, pedal edema - Expanded Lower Extremity Exam Neurovascular/Tendon exam: Absent: motor deficit, sensory deficit, tendon deficit Gait: observed and normal - Back Exam Back exam: Present: normal inspection, full ROM. Absent: tenderness - Neurological Exam Neurological exam: Present: alert, oriented X3 - Psychiatric Psychiatric exam: Present: normal affect, normal mood - Skin Skin exam: Present: warm, dry, intact, normal color Course - Reevaluation(s) Reevaluation #1: 37-year-old with nausea vomiting unable to keep anything down. She does have an elevated creatinine however it's improved from her last visit. I did review her previous labs she does have an elevated sedimentation rate at greater than 130. Time: 11:53 - Consultations Consultation #1: Discussed with Dr. Catherine, admit. Time: 11:54 Vital Signs Temperature 97.7 F 05/06/17 09:19 Pulse Rate 107 05/06/17 09:19 Respiratory Rate 20 05/06/17 09:19 Blood Pressure 162/102 05/06/17 09:19 O2 Sat by Pulse Oximetry 100 05/06/17 09:19 Temperature 97.7 F 05/06/17 09:19 Pulse Rate 107 05/06/17 09:19 Respiratory Rate 20 05/06/17 09:19 Blood Pressure 162/102 05/06/17 09:19 O2 Sat by Pulse Oximetry 100 05/06/17 09:19 Oxygen Delivery Oxygen Delivery Room Air Medical Decision Making - Lab Data Lab results reviewed: Yes I reviewed the patient's lab results. Result diagrams: 05/06/17 09:42 05/06/17 09:42 Lab Results 05/06/17 05/06/17 05/06/17 Range/Units 09:42 09:42 09:42 WBC 12.2 H (4.3-11.1) K/mcL RBC 4.00 (3.82-4.97) M/mcL Hgb 10.5 L (11.5-15.4) g/dL Hct 33.0 L (35.3-44.9) % MCV 82.5 L (83.0-100.0) fL MCH 26.3 L (28.0-33.3) pg MCHC 31.8 (31.6-35.5) g/dL RDW 14.2 (11.5-14.5) % Plt Count 304 (140-400) K/mcL MPV 10.7 (9.4-12.4) fL Immature Gran % 0.9 (0-4) % Seg Neutrophils % 60.5 % Lymphocytes % 24.5 % Monocytes % 8.5 % Eosinophils % 4.9 % Basophils % 0.7 % Neutrophils # 7.4 (1.6-8.9) K/mcL Lymphocytes # 3.0 (0.6-4.6) K/mcL Monocytes # 1.0 (0.0-1.3) K/mcL Eosinophils # 0.6 (0.0-0.6) K/mcL Basophils # 0.1 (0.0-0.2) K/mcL ESR >= 130 H (0-15) mm/hr Sodium 141 (136-145) mEq/L Potassium 3.7 (3.5-4.5) mEq/L Chloride 104 (98-109) mEq/L Carbon Dioxide 25 (19-29) mEq/L BUN 17 (7-20) mg/dL Creatinine 1.21 H (0.57-1.11) mg/dL Est GFR ( Amer) > 60 (> 60) Est GFR (Non-Af Amer) 50 L (> 60) BUN/Creatinine Ratio 14 (6-26) Glucose 112 H (70-99) mg/dL Calculated Osmolality 294 (280-300) Calcium 9.7 (8.6-10.8) mg/dL Creatine Kinase 48 (29-168) Units/L Troponin I (0-0.03) ng/mL Urine Color (Yellow) Urine Clarity (Clear) Urine pH (5.0-8.0) pH Units Ur Specific [place] (1.010-1.025) Urine Protein (Neg-Trace) mg/dL Urine Glucose (UA) (Normal) mg/dL Urine Ketones (Negative) mg/dL Urine Blood (Negative) Urine Nitrite (Negative) Urine Bilirubin (Negative) Urine Urobilinogen (Normal) mg/dL Ur Leukocyte Esterase (Negative) Urine Microscopic RBC (0-3) per hpf Urine Microscopic WBC (0-3) per hpf Ur Squamous Epith Cells (None-Few) per lpf Urine Bacteria (None-Few) per hpf Hyaline Casts (None-Few) per lpf Ur Culture Indicated? (NO) 05/06/17 05/06/17 Range/Units 09:42 10:06 WBC (4.3-11.1) K/mcL RBC (3.82-4.97) M/mcL Hgb (11.5-15.4) g/dL Hct (35.3-44.9) % MCV (83.0-100.0) fL MCH (28.0-33.3) pg MCHC (31.6-35.5) g/dL RDW (11.5-14.5) % Plt Count (140-400) K/mcL MPV (9.4-12.4) fL Immature Gran % (0-4) % Seg Neutrophils % % Lymphocytes % % Monocytes % % Eosinophils % % Basophils % % Neutrophils # (1.6-8.9) K/mcL Lymphocytes # (0.6-4.6) K/mcL Monocytes # (0.0-1.3) K/mcL Eosinophils # (0.0-0.6) K/mcL Basophils # (0.0-0.2) K/mcL ESR (0-15) mm/hr Sodium (136-145) mEq/L Potassium (3.5-4.5) mEq/L Chloride (98-109) mEq/L Carbon Dioxide (19-29) mEq/L BUN (7-20) mg/dL Creatinine (0.57-1.11) mg/dL Est GFR ( Amer) (> 60) Est GFR (Non-Af Amer) (> 60) BUN/Creatinine Ratio (6-26) Glucose (70-99) mg/dL Calculated Osmolality (280-300) Calcium (8.6-10.8) mg/dL Creatine Kinase (29-168) Units/L Troponin I 0.01 (0-0.03) ng/mL Urine Color Yellow (Yellow) Urine Clarity Cloudy A (Clear) Urine pH 6.0 (5.0-8.0) pH Units Ur Specific [place] 1.020 (1.010-1.025) Urine Protein 30 H (Neg-Trace) mg/dL Urine Glucose (UA) Normal (Normal) mg/dL Urine Ketones Negative (Negative) mg/dL Urine Blood Negative (Negative) Urine Nitrite Negative (Negative) Urine Bilirubin Negative (Negative) Urine Urobilinogen Normal (Normal) mg/dL Ur Leukocyte Esterase Small H (Negative) Urine Microscopic RBC 0-3 (0-3) per hpf Urine Microscopic WBC 15-30 H (0-3) per hpf Ur Squamous Epith Cells Many H (None-Few) per lpf Urine Bacteria None Seen (None-Few) per hpf Hyaline Casts None Seen (None-Few) per lpf Ur Culture Indicated? NO (NO) - Radiology Data Radiology results reviewed: Yes I reviewed the patient's radiology results. Chest X-Ray 05/06/17 09:29 IMPRESSION: No acute process. D/ / Aric Manrique MD / Aric Manrique MD Interpreting Provider: Aric Manrique MD - EKG Data EKG #1 EKG attestation: Yes I reviewed and interpreted this EKG. EKG shows normal: sinus rhythm Rate: normal Rhythm: NSR Interpretation: nonspecific ST-T wave changes
[2017-05-06 09:52] LABS: Basophils # 0.1 K/mcL (0.0-0.2); Basophils % 0.7 %; Eosinophils # 0.6 K/mcL (0.0-0.6); Eosinophils % 4.9 %; Hemoglobin 10.5 g/dL (11.5-15.4); Immature Granulocytes % 0.9 % (0-4); Lymphocytes % 24.5 %; Mean Corpuscular HGB Conc 31.8 g/dL (31.6-35.5); Mean Corpuscular Hemoglobin 26.3 pg (28.0-33.3); Mean Corpuscular Volume 82.5 fL (83.0-100.0); Mean Platelet Volume 10.7 fL (9.4-12.4); Monocytes % 8.5 %; Neutrophils # 7.4 K/mcL (1.6-8.9); Platelet Count 304 K/mcL (140-400); Red Cell Distribution Width 14.2 % (11.5-14.5); Segmented Neutrophils % 60.5 %
[2017-05-06 10:06] LABS: BUN/Creatinine Ratio 14 (6-26); Blood Urea Nitrogen 17 mg/dL (7-20); Calcium 9.7 mg/dL (8.6-10.8); Carbon Dioxide 25 mEq/L (19-29); Chloride 104 mEq/L (98-109); Creatine Kinase 48 Units/L (29-168); Glucose 112 mg/dL (70-99); Osmolality,Calculated 294 (280-300); Potassium 3.7 mEq/L (3.5-4.5); Sodium 141 mEq/L (136-145); eGFR For African Americans > 60 (> 60); eGFR For Non-African Americans 50 (> 60)
[2017-05-06 10:17] LABS: Bilirubin,Urine Negative (Negative); Blood,Urine Negative (Negative); Clarity,Urine Cloudy (Clear); Color,Urine Yellow (Yellow); Glucose,Urine (UA) Normal (Normal); Ketones,Urine Negative (Negative); Leukocyte Esterase,Urine Small (Negative); Nitrite,Urine Negative (Negative); Protein,Urine 30 mg/dL (Neg-Trace); Urobilinogen,Urine Normal (Normal)
[2017-05-06 10:20] LABS: Bacteria,Urine None Seen per hpf (None-Few); Hyaline Casts,Urine None Seen per lpf (None-Few); Squamous Epithelial Cell,Urine Many per lpf (None-Few); WBC,Urine 15-30 per hpf (0-3)
[2017-05-06 10:31] LABS: RBC,Urine 0-3 per hpf (0-3)
[2017-05-06] MEDS ORDERED: cefTRIAXone 1,000 MG in Water for inj. (sterile) 10 ML IVP ONE (12:21)
[2017-05-06] MEDS ORDERED: *HR* Morphine 2 MG/ML SYRINGE IVP PRN (15:08)
[2017-05-06] MEDS ORDERED: Naloxone 0.4 MG/ML INJ IVP PRN ×2 (17:10→20:39)
--- NOTE | 2017-05-06 17:34 | Internal Med History&Physical ---
Date of Encounter: 05/06/17 Time of Encounter: 17:34 Assessment and Plan (1) DVT prophylaxis Current visit: Yes Status: Acute Patient will be put on heparin 5000 units every 12 hours for DVT prophylaxis (2) Acute kidney injury Current visit: No Status: Acute Patient creatinine is 1.21 mild hydration is needed for correction. This may be related to his dehydration status (3) Nausea and vomiting Current visit: Yes Status: Acute Zofran 4 mg IV every 4 hours as needed and IV hydration to control patient's nausea, and vomiting patient diet should be thin liquidstill she is able to keep fluid down, diet can be advanced accordingly Qualifiers: Vomiting type: unspecified Vomiting Intractability: unspecified Qualified Code(s): R11.2 - Nausea with vomiting, unspecified Internal Medicine - H&P: HPI Chief complaint: Intractable nausea and Vomiting Admitted From: Home Plans for Post Hospital Care: Home History of present illness: Ms. France is a 37 year old female Patient presents with chief complaint of intractable nausea and . She stated this has been ongoing for over a week but got worst yesterday she did not do anything to make it better or worse she stated loosing a lot of weight and not able to keep food down she had been previously in the facility for similar except. She was also complaining of muscle pain or weakness with her upper and lower extremities she stated that she has not been able to sleep well for couple of days as a result of the pain in her muscles Past Med Surg Social Fam HX - Past Medical History Medical history: dialysis, hypertension, other Psychiatric history: no psych history - Past Surgical History Surgical History: appendectomy, cholecystectomy - Social History Smoking Status: Never smoker Smokeless Tobacco Status: No Alcohol use: none Drug use: none - Family History Father Living Status: Still Living Hx Family Cardiac Disorders: Yes (hypertension) Hx Family Endocrine Disorder: Yes (diabetes) Internal Medicine - H&P: Meds Ferrous Sulfate 325 mg PO BID #60 tablet. 04/29/17 [Rx] Labetalol [Trandate] 300 mg PO BID #60 tablet 04/29/17 [Rx] Omeprazole [PriLOSEC] 20 mg PO DAILY@0630 #30 capsule. 04/29/17 [Rx] Ondansetron ODT [Zofran ODT] 8 mg SL Q12HR PRN #20 tab.rapdis 04/29/17 [Rx] amLODIPine [Norvasc] 10 mg PO DAILY #30 tablet 04/29/17 [Rx] 3 Allergy/AdvReac Type Severity Reaction Status Date / Time IV DYE Allergy See Uncoded 05/06/17 09:19 Comments All Systems PM: A 10-system review of systems was performed and is negative for pertinent findings except as documented above in the HPI. - Constitutional Constitutional: no chills, no fever(s), no night sweats - Gastrointestinal Gastrointestinal: abdominal pain, nausea, vomiting, no diarrhea, no hematemesis , no hematochezia, no melena - Musculoskeletal Musculoskeletal ROS IM: back pain, muscle cramps, myalgias, no numbness, no tingling - Integumentary Integumentary IM: no rash, no unusual bruising - Neurological Neurological ROS: no confusion, no convulsions, no focal weakness, no numbness, no tingling, no tremor(s) - Hematologic/Lymphatic Hematologic/Lymphatic: no easy bruising - Constitutional Vitals: Temp Pulse Resp BP Pulse Ox 98.4 F 85 16 123/85 98 05/06/17 13:04 05/06/17 13:04 05/06/17 13:04 05/06/17 13:04 05/06/17 13:04 General appearance: Present: mild distress, A&O X 3 - Head Head exam: Present: atraumatic, normocephalic - Eye Eye exam: Present: PERRL, conjuntiva pink, sclera anicteric Pupils: Present: PERRL - Neck Neck exam general surgery: Present: supple, trachea midline. Absent: lymphadenopathy - Respiratory Respiratory exam: Present: CTAB. Absent: accessory muscle use, rales, rhonchi, wheezes - Cardiovascular Cardiovascular exam: Present: RRR, +S1, +S2. Absent: diastolic murmur, gallop, rubs, systolic murmur - GI/Abdominal GI/Abdominal exam: Present: normal bowel sounds, soft, no peritoneal signs. Absent: distended, tenderness - Extremities Exam Extremities exam: Present: warm, radial pulses palpable and symmetrical. Absent : calf tenderness, cyanotic, pedal edema - Neurological Exam Neurological exam: Present: CN II-XII intact, oriented X3, no focal deficits. Absent: pronater drift, facial droop, speech deficit - Skin Skin exam: Present: dry, intact Internal Med - H&P Results - Labs CBC & Chem 7: 05/06/17 09:42 05/06/17 09:42 - Attending Attestation Janessa Catherine
[2017-05-06 19:05] LABS: BUN/Creatinine Ratio 14 (6-26); Blood Urea Nitrogen 15 mg/dL (7-20); Calcium 9.1 mg/dL (8.6-10.8); Carbon Dioxide 26 mEq/L (19-29); Chloride 107 mEq/L (98-109); Glucose 116 mg/dL (70-99); Magnesium 1.5 mg/dL (1.6-2.6); Osmolality,Calculated 298 (280-300); Potassium 3.6 mEq/L (3.5-4.5); Sodium 143 mEq/L (136-145); eGFR For African Americans > 60 (> 60); eGFR For Non-African Americans 55 (> 60)
[2017-05-06 19:07] LABS: Hematocrit 29.7 % (35.3-44.9); Hemoglobin 9.5 g/dL (11.5-15.4); Mean Corpuscular Hemoglobin 26.7 pg (28.0-33.3); Mean Corpuscular Volume 83.4 fL (83.0-100.0); Platelet Count 255 K/mcL (140-400); Red Blood Count 3.56 M/mcL (3.82-4.97); Red Cell Distribution Width 14.4 % (11.5-14.5)
[2017-05-06] MEDS: 0.9 % Sodium Chloride 1,000 ML IVC SCH (19:55)
[2017-05-06] MEDS: Ondansetron ODT 4 MG TAB.RAPDIS SL PRN (20:02)
[2017-05-06] MEDS: *HR* Morphine 2 MG/ML SYRINGE IVP PRN (21:08)
[2017-05-07] MEDS: *HR* Morphine 2 MG/ML SYRINGE IVP PRN (02:09)
[2017-05-07] MEDS: 0.9 % Sodium Chloride 1,000 ML IVC SCH (05:29)
[2017-05-07] MEDS: amLODIPine 5 MG TABLET PO SCH (08:30)
--- NOTE | 2017-05-07 10:19 | Discharge Summary ---
Date of Encounter: 05/07/17 Time of Encounter: 10:19 - Discharge Medications Home Medications: Ferrous Sulfate 325 mg PO BID #60 tablet. 04/29/17 [Rx] Labetalol [Trandate] 300 mg PO BID #60 tablet 04/29/17 [Rx] Omeprazole [PriLOSEC] 20 mg PO DAILY@0630 #30 capsule. 04/29/17 [Rx] Ondansetron ODT [Zofran ODT] 8 mg SL Q12HR PRN #20 tab.rapdis 04/29/17 [Rx] amLODIPine [Norvasc] 10 mg PO DAILY #30 tablet 04/29/17 [Rx] Allergies/Adverse Reactions: 3 Allergy/AdvReac Type Severity Reaction Status Date / Time IV DYE Allergy See Uncoded 05/06/17 09:19 Comments Date of admission: 05/06/17 17:10 Primary care physician: Umu Blanchard DO - Patient Status Condition: Fair - Discharge Instructions Follow Up With: Umu Blanchard DO [Primary Care Provider] - Hospital course: Ms. France is a 37 year old female - Time Spent with Patient Total time spent providing and/or coordinating discharge services: - Constitutional Vitals: Temp Pulse Resp BP Pulse Ox 98.2 F 80 16 119/79 96 05/07/17 07:09 05/07/17 07:09 05/07/17 07:09 05/07/17 07:09 05/07/17 07:09 General appearance: Present: mild distress, A&O X 3
--- NOTE | 2017-05-07 10:29 | Internal Med Progress Note ---
Date of Encounter: 05/07/17 Time of Encounter: 10:29 - Assessment and plan (1) Nausea and vomiting Current Visit: Yes Status: Acute Assessment and plan: Possibly cyclical Continue supportive care GI eval appreciated For gastric emptying study as out-patient Qualifiers: Vomiting type: cyclical vomiting Vomiting Intractability: non-intractable Qualified Code(s): G43.A0 - Cyclical vomiting, not intractable (2) Hypomagnesemia Current Visit: Yes Status: Acute Assessment and plan: Replace and monitor (3) Obesity (BMI 35.0-39.9 without comorbidity) Current Visit: Yes Status: Chronic Assessment and plan: Encourage lifestyle modification - Subjective Interval history: Seen and examined Readmitted for gastritis EGD last week (04/29) only showed gastritis She has no gall bladder or appendix Abdomen CT and gall bladder USS is negative Continue supportive care Discontinue IV Morphine, there is no objective cause of patient's pain - Constitutional Vitals: Temp Pulse Resp BP Pulse Ox 98.2 F 80 16 119/79 96 05/07/17 07:09 05/07/17 07:09 05/07/17 07:09 05/07/17 07:09 05/07/17 07:09 General appearance: Present: A&O X 3, no acute distress, obese - Head Head exam: Present: atraumatic, normocephalic - Eye Eye exam: Present: PERRL, conjuntiva pink, sclera anicteric Pupils: Present: PERRL - Neck Neck exam general surgery: Present: supple, trachea midline. Absent: lymphadenopathy - Respiratory Respiratory exam: Present: CTAB. Absent: accessory muscle use, rales, rhonchi, wheezes - Cardiovascular Cardiovascular exam: Present: RRR, +S1, +S2. Absent: diastolic murmur, gallop, rubs, systolic murmur - GI/Abdominal GI/Abdominal exam: Present: normal bowel sounds, soft, no peritoneal signs. Absent: distended, tenderness - Extremities Exam Extremities exam: Present: warm, radial pulses palpable and symmetrical. Absent : calf tenderness, cyanotic, pedal edema - Neurological Exam Neurological exam: Present: alert, CN II-XII intact, oriented X3, no focal deficits. Absent: pronater drift, facial droop, speech deficit - Skin Skin exam: Present: dry, intact Internal Medicine: Result - Labs CBC & Chem 7: 12/14/17 18:28 05/06/17 18:28 Labs: Short CBC 05/06/17 05/06/17 Range/Units 18:28 18:28 WBC 10.5 (4.3-11.1) K/mcL RBC 3.56 L (3.82-4.97) M/mcL Hgb 9.5 L (11.5-15.4) g/dL Hct 29.7 L (35.3-44.9) % MCV 83.4 (83.0-100.0) fL MCH 26.7 L (28.0-33.3) pg MCHC 32.0 (31.6-35.5) g/dL RDW 14.4 (11.5-14.5) % Plt Count 255 (140-400) K/mcL MPV 11.0 (9.4-12.4) fL Sodium 143 (136-145) mEq/L Potassium 3.6 (3.5-4.5) mEq/L Chloride 107 (98-109) mEq/L Carbon Dioxide 26 (19-29) mEq/L BUN 15 (7-20) mg/dL Creatinine 1.11 (0.57-1.11) mg/dL Est GFR ( Amer) > 60 (> 60) Est GFR (Non-Af Amer) 55 L (> 60) BUN/Creatinine Ratio 14 (6-26) Glucose 116 H (70-99) mg/dL Calculated Osmolality 298 (280-300) Calcium 9.1 (8.6-10.8) mg/dL Magnesium 1.5 L (1.6-2.6) mg/dL [facility] 05/06/17 18:28 Sodium 143 Potassium 3.6 Chloride 107 Carbon Dioxide 26 BUN 15 Creatinine 1.11 Glucose 116 H Calcium 9.1 Consult Discharge Plan - Plan Referrals: Umu Blanchard DO [Primary Care Provider] -
--- NOTE | 2017-05-07 11:33 | Gastroenterology Consult Note ---
Date of Encounter: 05/07/17 Time of Encounter: 11:15 - Assessment and plan (1) Nausea and vomiting Current Visit: Yes Status: Acute Assessment and plan: EGD last week (04/29) only showed gastritis. Continue symptomatic treatment with antiemetics, IV fluids, and PPI. Recommend daily PPI and antiemetics on discharge. Follow up in GI office in 2-3 weeks. Consider gastric emptying study. Qualifiers: Vomiting type: unspecified Vomiting Intractability: unspecified Qualified Code(s): R11.2 - Nausea with vomiting, unspecified - Time Spent With Patient Total time spent is greater than 50% in coordination of care (as documented) at patient's floor/unit and/or counseling patient: GI History of Present Illness - Data of Consult Patient: known to practice within the last 3 years Consult date: 05/07/17 Requesting Physician: Estevan Foster MD - Consult Narrative Reason for consult: cyclic vomiting History of present illness: Ms. France is a 37 year old female who was recently admitted for sepsis secondary to impetigo treated with antibiotics. Patient thereafter developed acute kidney injury, acute tubular necrosis secondary to vancomycin toxicity, NSAID use, IV contrast. Patient ended up needing dialysis however her GFR continues to improve. During her admission last week, she developed nausea and vomiting which was not controlled with Zofran, Phenergan, Reglan, or Compazine. EGD was completed which showed gastritis. Patient had abdominal ultrasound which is negative. She has had a cholecystectomy and appendectomy. She presented to the ED yesterday with c/o nausea and vomiting. She denies hematemesis or coffee-ground emesis. Pt has lost 6kg in the past 10 days. Patient denies alcohol or drug use. Procedures: EGD 04/29/2017 Dr. Acuña: Gastritis NSAIDs: None Anticoagulation: None Past Med Surg Social Fam HX - Past Medical History Medical history: dialysis, hypertension, other Psychiatric history: no psych history - Past Surgical History Surgical History: appendectomy, cholecystectomy - Social History Smoking Status: Never smoker Smokeless Tobacco Status: No Alcohol use: none Drug use: none - Family History Father Living Status: Still Living Hx Family Cardiac Disorders: Yes (hypertension) Hx Family Endocrine Disorder: Yes (diabetes) - Gastrointestinal Gastrointestinal: Present: as per HPI - Constitutional Constitutional: as per HPI - EENT Eyes: as per HPI Ears: Present: as per HPI Nose, mouth and throat: Present: as per HPI - Cardiovascular Cardiovascular ROS: Present: as per HPI - Respiratory Respiratory IM: Present: as per HPI - Genitourinary Genitourinary: Absent: change in color, Urinary frequency - Neurological ROS Neurological GI: Present: as per HPI - Hematologic/Lymphatic Hematologic/Lymphatic pediatric: Present: as per HPI - Musculoskeletal Musculoskeletal ROS GI: Present: as per HPI - Integumentary Integumentary GI: Present: as per HPI - Psychiatric ROS Psychiatric GI: Present: as per HPI - Endocrine Endocrine IM: Present: as per HPI - Constitutional Vitals: Temp Pulse Resp BP Pulse Ox 98.2 F 80 16 119/79 96 05/07/17 07:09 05/07/17 07:09 05/07/17 07:09 05/07/17 07:09 05/07/17 07:09 General appearance: Present: cooperative, A&O X 3, no acute distress, answers questions appropriately - Head Head exam: Present: atraumatic, normocephalic - Eye Eye exam: Present: normal appearance, sclera anicteric - ENT ENT exam: Present: mucous membranes dry - Neck Neck exam general surgery: Present: normal inspection, trachea midline - Respiratory Respiratory exam: Present: CTAB. Absent: rales, rhonchi - Cardiovascular Cardiovascular exam: Present: RRR, +S1, +S2 - GI/Abdominal GI/Abdominal exam: Present: soft, no peritoneal signs. Absent: distended, firm , guarding, tenderness - Rectal Rectal exam: Present: deferred - Extremities Exam Extremities exam: Present: warm - Neurological Exam Neurological exam: Present: no focal deficits - Psychiatric Psychiatric exam: Present: normal affect, normal mood - Skin Skin exam: Present: dry, intact, normal color, warm Results - Labs CBC & Chem 7: 05/06/17 18:28 05/06/17 18:28 Labs: Last Result ESR >= 130 mm/hr (0-15) H 05/06/17 09:42 Calcium 9.1 mg/dL (8.6-10.8) 05/06/17 18:28 Troponin I 0.01 ng/mL (0-0.03) 05/06/17 09:42 Entire Visit Hgb 9.5 g/dL (11.5-15.4) L 05/06/17 18:28 Hct 29.7 % (35.3-44.9) L 05/06/17 18:28 Consult Discharge Plan - Plan Referrals: Umu Blanchard DO [Primary Care Provider] -
[2017-05-07] MEDS ORDERED: Magnesium Sulfate 2 GM in D5% in Water 100 ML IVPB ONE (14:34)
[2017-05-07] MEDS: Ondansetron ODT 4 MG TAB.RAPDIS SL PRN (14:35)
--- NOTE | 2017-05-07 17:19 | Electrocardiograph Report ---
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
[2017-05-08] MEDS: Acetaminophen 325 MG TABLET PO PRN ×2 (00:45→08:14)
[2017-05-08 07:38] VITALS: BP 142/87
[2017-05-08] MEDS: amLODIPine 5 MG TABLET PO SCH (08:10)
--- NOTE | 2017-05-08 10:01 | Discharge Summary ---
Date of Encounter: 05/08/17 Time of Encounter: 09:58 - Discharge Diagnosis (1) Nausea and vomiting Priority: Primary Status: Resolved Qualifiers: Vomiting type: cyclical vomiting Vomiting Intractability: non-intractable Qualified Code(s): G43.A0 - Cyclical vomiting, not intractable (2) Hypomagnesemia Priority: Primary Status: Resolved (3) Obesity (BMI 35.0-39.9 without comorbidity) Priority: Secondary Status: Chronic (4) Hypertension Priority: Secondary Status: Chronic Qualifiers: Hypertension type: essential hypertension Qualified Code(s): I10 - Essential (primary) hypertension - Discharge Medications Home Medications: Ferrous Sulfate 325 mg PO BID #60 tablet. 04/29/17 [Rx] Labetalol [Trandate] 300 mg PO BID #60 tablet 04/29/17 [Rx] Omeprazole [PriLOSEC] 20 mg PO DAILY@0630 #30 capsule. 04/29/17 [Rx] Ondansetron ODT [Zofran ODT] 8 mg SL Q12HR PRN #20 tab.rapdis 04/29/17 [Rx] amLODIPine [Norvasc] 10 mg PO DAILY #30 tablet 04/29/17 [Rx] Allergies/Adverse Reactions: 3 Allergy/AdvReac Type Severity Reaction Status Date / Time IV DYE Allergy See Uncoded 05/06/17 09:19 Comments Date of admission: 05/06/17 17:10 Primary care physician: Umu Blanchard DO Consults: 05/07/17 10:27 Consult to Gastroenterology [CONS] Routine Consulting Provider: Gastroenterology Francoise Reason for Consult: Cyclic vomiting Call Completed: Yes Discharging clinician: Estevan Foster Anticipated date of discharge: 05/08/17 - Patient Status Disposition: Home, Self-Care Condition: Good Functional capacity at discharge: independent ambulation Overall status at discharge: patient is back to baseline - Discharge Instructions Follow Up With: Umu Blanchard DO [Primary Care Provider] - - Diet and Activity Activity: resume usual activities as tolerated Diet: low salt diet Interval History: See below. Hospital course: Ms. France is a 37 year old female Seen and examined at bedside. Readmitted for gastritis EGD last week (04/29) only showed gastritis She has no gall bladder or appendix Abdomen CT and gall bladder USS is negative She was evaluated by GI, recommend supportive care. Symptoms have resolved since last night, she has not been able to tolerate her dinner and breakfast without any nausea or vomiting. She is encouraged to follow up with gastroenterology for a gastric intensity. Encouraged to comply with medications. For obesity, the patient is encouraged to loose weight. - Time Spent with Patient Total time spent providing and/or coordinating discharge services: Less than 30 minutes - Constitutional Vitals: Temp Pulse Resp BP Pulse Ox 98.3 F 79 16 142/87 94 05/08/17 07:37 05/08/17 07:37 05/08/17 07:37 05/08/17 07:37 05/08/17 07:37 General appearance: Present: A&O X 3, no acute distress, obese - Head Head exam: Present: atraumatic, normocephalic - Eye Eye exam: Present: PERRL, conjuntiva pink, sclera anicteric Pupils: Present: PERRL - Neck Neck exam general surgery: Present: supple, trachea midline. Absent: lymphadenopathy - Respiratory Respiratory exam: Present: CTAB. Absent: accessory muscle use, rales, rhonchi, wheezes - Cardiovascular Cardiovascular exam: Present: RRR, +S1, +S2. Absent: diastolic murmur, gallop, rubs, systolic murmur - GI/Abdominal GI/Abdominal exam: Present: normal bowel sounds, soft, no peritoneal signs. Absent: distended, tenderness - Extremities Exam Extremities exam: Present: warm, radial pulses palpable and symmetrical. Absent : calf tenderness, cyanotic, pedal edema - Neurological Exam Neurological exam: Present: alert, CN II-XII intact, oriented X3, no focal deficits. Absent: pronater drift, facial droop, speech deficit - Skin Skin exam: Present: dry, intact
== END 2017-05-08 10:30 | disposition home or self-care (01) | DRG 684 ==
LOC: 3BNU 09:17 → EMEROO 09:17 → 3BNU 13:00 → SUATTDRO 17:10
PROVIDERS: ADMIT Family Medicine; ATTEND Internal Medicine